=== PATIENT | male | born 1970 | race Caucasian/White ===

== ENCOUNTER 2016-03-12 02:21 | Emergency (ER) | payer MEDICAID, OTHER ==
[~2016-03-12] VITALS: Ht 188 cm; Wt 120.3 kg
[~2016-03-12 02:21] MED LIST: PERC5TAB12 PO; TAMS5CAP PO; ZOFR4TAB3 SL
[2016-03-12 02:28] VITALS: BP 137/89; PULSE 93; RESP 18; TEMP 98.1; O2SAT 98
[2016-03-12] MEDS ORDERED: HYDROmorphone HCL PF 1 MG/ML VIAL IVS ONE (02:45)
[2016-03-12] MEDS ORDERED: SODIUM CHLORIDE 0.9% FLUSH 5 ML FLUSH IVF PRN (02:45)
[2016-03-12] MEDS ORDERED: ONDANSETRON HCL 4 MG/2 ML VIAL IVP ONE (02:45)
[2016-03-12] MEDS ORDERED: PERC5TAB12 PO (03:01)
[2016-03-12] MEDS ORDERED: TAMS5CAP PO (03:01)
[2016-03-12] MEDS ORDERED: ZOFR4TAB3 SL (03:01)
--- NOTE | 2016-03-12 03:02 | PD ---
HPI Chief Complaint: Flank/Kidney Pain Time Seen by Provider: 02:33 Travel History International Travel<30 days: No Contact w/Intl Traveler<30days: No Traveled to known affect area: No History of Present Illness HPI 45 yo M c/o L flank pain x 2.5 hours with radiation to L groin, sudden onset, + hematuria, no fever, no vomiting, + nausea. pain is severe. pain similar to prior episodes ureteric stones. PFSH Past Medical History Depression: Yes (PTSD) Cardiovascular Problems: No Diabetes: No Diminished Hearing: No Hypertension: No Kidney Stones: Yes (REOCCURING SINCE 2008) Musculoskeletal: Yes (Chronic back pain) Respiratory: No Immunizations Current: No Thyroid Disease: No Tetanus Vaccination: < 5 Years Past Surgical History Abdominal Surgery: No Cardiac Surgery: No Ear Surgery: No Endocrine Surgery: No Eye Surgery: No Genitourinary Surgery: Yes (Lithotripsy, STENT PLACED AND REMOVED) Gynecologic Surgery: No Joint Replacement: No Neurologic Surgery: No Oral Surgery: No Pacemaker: No Thoracic Surgery: No Other Surgery: Yes (LITHOTRIPSY MULTIPLE TIMES,LAST ONE 12/2015) Social History Alcohol Use: Yes (OCCASIONAL) Tobacco Use: Yes (1 PACK DAILY) Substance Use: No Allergies-Medications (Allergen,Severity, Reaction): Coded Allergies: No Known Allergies (Verified , 03/12/16) Reported Meds & Prescriptions Reported Meds & Active Scripts Active Cipro (Ciprofloxacin HCl) 500 Mg Tab 500 Mg PO BID 7 Days Flomax (Tamsulosin HCl) 0.4 Mg Cap 0.4 Mg PO HS Percocet (Oxycodone-Acetaminophen) 5-325 mg Tab 1 Tab PO Q6H PRN Review of Systems Except as stated in HPI: all other systems reviewed are Neg Physical Exam Narrative GENERAL: 45 yo M, WNWD, mild distress 2/2 pain SKIN: Warm and dry. HEAD: Atraumatic. Normocephalic. EYES: Pupils equal and round. No scleral icterus. No injection or drainage. ENT: No nasal bleeding or discharge. Mucous membranes pink and moist. NECK: Trachea midline. No JVD. CARDIOVASCULAR: Regular rate and rhythm. RESPIRATORY: No accessory muscle use. Clear to auscultation. Breath sounds equal bilaterally. GASTROINTESTINAL: Abdomen soft, non-tender, nondistended. Hepatic and splenic margins not palpable. TTP L flank. MUSCULOSKELETAL: Extremities without clubbing, cyanosis, or edema. No obvious deformities. NEUROLOGICAL: Awake and alert. No obvious cranial nerve deficits. Motor grossly within normal limits. Five out of 5 muscle strength in the arms and legs. Normal speech. PSYCHIATRIC: Appropriate mood and affect; insight and judgment normal. Data Data Last Documented VS Vital Signs Date Time Temp Pulse Resp B/P Pulse Ox O2 Delivery O2 Flow Rate FiO2 03/12/16 03:28 98 Room Air 03/12/16 02:28 98.1 93 18 137/89 vs reviewed Orders Basic Metabolic Panel (Bmp) (03/12/16 02:33) Complete Blood Count With Diff (03/12/16 02:33) Urinalysis - C+S If Indicated (03/12/16 02:33) Iv Access Insert/Monitor (03/12/16 02:33) Ecg Monitoring (03/12/16 02:33) Oximetry (03/12/16 02:33) Ondansetron Inj (Zofran Inj) (03/12/16 02:45) Sodium Chloride 0.9% Flush (Ns Flush) (03/12/16 02:45) Hydromorphone Pf Inj (Dilaudid Pf Inj) (03/12/16 02:45) Urine Culture (03/12/16 02:30) Ceftriaxone Inj (Rocephin Inj) (03/12/16 03:30) Ed Poc Ultrasound (03/12/16 03:25) Hydromorphone Pf Inj (Dilaudid Pf Inj) (03/12/16 03:45) Labs Laboratory Tests Test 03/12/16 02:30 White Blood Count 11.3 TH/MM3 Red Blood Count 4.38 MIL/MM3 Hemoglobin 13.4 GM/DL Hematocrit 38.5 % Mean Corpuscular Volume 88.0 FL Mean Corpuscular Hemoglobin 30.5 PG Mean Corpuscular Hemoglobin 34.7 % Concent Red Cell Distribution Width 12.9 % Platelet Count 433 TH/MM3 Mean Platelet Volume 7.6 FL Neutrophils (%) (Auto) 63.3 % Lymphocytes (%) (Auto) 25.6 % Monocytes (%) (Auto) 7.6 % Eosinophils (%) (Auto) 2.9 % Basophils (%) (Auto) 0.6 % Neutrophils # (Auto) 7.1 TH/MM3 Lymphocytes # (Auto) 2.9 TH/MM3 Monocytes # (Auto) 0.9 TH/MM3 Eosinophils # (Auto) 0.3 TH/MM3 Basophils # (Auto) 0.1 TH/MM3 CBC Comment DIFF FINAL Differential Comment Urine Color YELLOW Urine Turbidity CLEAR Urine pH 6.0 Urine Specific [place] 1.028 Urine Protein NEG mg/dL Urine Glucose (UA) NEG mg/dL Urine Ketones TRACE mg/dL Urine Occult Blood NEG Urine Nitrite NEG Urine Bilirubin NEG Urine Leukocyte Esterase NEG Urine RBC 0-3 /hpf Urine WBC 9-14 /hpf Urine Squamous Epithelial 0-5 /hpf Cells Urine Calcium Oxalate Crystals FEW /hpf Urine Bacteria NONE /hpf Microscopic Urinalysis Comment CULTURE INDICATED Sodium Level 142 MEQ/L Potassium Level 3.8 MEQ/L Chloride Level 108 MEQ/L Carbon Dioxide Level 24.6 MEQ/L Anion Gap 9 MEQ/L Blood Urea Nitrogen 16 MG/DL Creatinine 1.10 MG/DL Estimat Glomerular Filtration 73 ML/MIN Rate Random Glucose 108 MG/DL Calcium Level 8.8 MG/DL [facility] Medical Decision Making Medical Screen Exam Complete: Yes Emergency Medical Condition: Yes Medical Record Reviewed: Yes Differential Diagnosis Constipation, Gastritis, Acute Cholecystitis, Biliary Colic, Pancreatitis, SANCHES , Hepatitis, Bowel Obstruction, Cystitis, Mesenteric Ischemia, AAA, Appendicitis , Renal Stone/Hydronephrosis, GERD, perforated viscous Narrative Course CBC & BMP Diagram 03/12/16 02:30 UA: WBCs present, no leuk est, no nitrite US L kidney demonstrates mild to moderate hydronephrosis which has been observed on multiple prior CT ab/pel studies, 3 within last 6 months. Pt will be sent home with antibiotics, Percocet and Flomax. He refused Zofran 2/2 cost. There is no suggestion of sepsis. Three prior urine cultures have yielded no isolate. In any case, we'll cover aggressively with IV Rocephin here plus 7 days Cipro at home. Cipro precautions discussed. Strict return precautions discussed. Pt verbalized understanding. Impacted stone/septic stone considered reasonably safely unlikely. Diagnosis Primary Impression: Lt flank pain Additional Impression: Cystitis Referrals: Ant Palomino MD 2 days Additional Instructions: You have a choice when it comes to health care, and we are glad that you chose [facility]. Hopefully, we have met your expectations on today's visit. You are welcome to return to [facility] at any time, as we are committed to meeting the health care needs of our community. Med/Other Pt SpecificInfo: Prescription(s) given Scripts Ciprofloxacin (Cipro)500 Mg [id number] Mg PO BID 7 Days Ref 0 Prov:Donte Lara MD 03/12/16 Tamsulosin (Flomax)0.4 Mg Cap0.4 Mg PO HS #7 CAP Ref 0 Prov:Donte Lara MD 03/12/16 Oxycodone-Acetaminophen (Percocet)5-325 mg Tab1 Tab PO Q6H PRN (PAIN) #20 TAB Ref 0 Prov:Donte Lara MD 03/12/16 Disposition: 01 DISCHARGE HOME Condition: Stable Donte Lara MD Mar 12, 2016 03:02
[2016-03-12 03:15] LABS: BLOOD, URINE NEG (NEG); GLUCOSE,URINE NEG (NEG); KETONE, URINE TRACE mg/dL (NEG); NITRITE,URINE NEG (NEG)
[2016-03-12 03:17] LABS: AUTOMATED NEUTROPHIL # 7.1 TH/MM3 (1.8-7.7); BASOPHIL # 0.1 TH/MM3 (0-0.2); BASOPHIL % 0.6 % (0.0-2.0); EOSINOPHIL # 0.3 TH/MM3 (0-0.4); EOSINOPHIL % 2.9 % (0.0-4.0); HEMATOCRIT 38.5 % (39.0-51.0); HEMO FLAGS DIFF FINAL; LYMPH % 25.6 % (9.0-44.0); LYMPHOCYTE # 2.9 TH/MM3 (1.0-4.8); MEAN CORPUSCULAR HEMOGLOBIN 30.5 PG (27.0-34.0); MEAN CORPUSCULAR HGB CONC 34.7 % (32.0-36.0); MONO % 7.6 % (0.0-8.0); NEUT % 63.3 % (16.0-70.0); PLATELET COUNT 433 TH/MM3 (150-450); RED BLOOD COUNT 4.38 MIL/MM3 (4.50-5.90); RED CELL DISTRIBUTION WIDTH 12.9 % (11.6-17.2); WHITE BLOOD COUNT 11.3 TH/MM3 (4.0-11.0)
[2016-03-12 03:20] LABS: URINE COLOR YELLOW (YELLW/STRAW)
[2016-03-12 03:21] LABS: CALCIUM OXALATE CRYSTALS,URINE FEW /hpf; RBC, URINE 0-3 /hpf (0-3); SQUAMOUS EPITHELIAL CELL URINE 0-5 /hpf (0-5)
[2016-03-12 03:22] LABS: COMMENT (UR) CULTURE INDICATED; CULTURE IF INDICATED CULTURE INDICATED
[2016-03-12 03:23] LABS: POTASSIUM 3.8 MEQ/L (3.5-5.1)
[2016-03-12 03:26] LABS: BICARBONATE 24.6 MEQ/L (21.0-32.0)
[2016-03-12 03:28] VITALS: O2SAT 98
[2016-03-12] MEDS ORDERED: cefTRIAXone INJ 1,000 MG in SODIUM CHLORIDE 0.9% INJ 100 ML IV ONE (03:30)
[2016-03-12] MEDS ORDERED: CIPR-9 PO (03:36)
[2016-03-12] MEDS ORDERED: HYDROmorphone HCL PF 1 MG/ML VIAL IV PUSH ONE (03:45)
[2016-03-12 04:38] VITALS: BP 142/77
== END 2016-03-12 04:41 | disposition home or self-care (01) ==
LOC: PHED 02:21
DX: N30.90 Cystitis, unspecified without hematuria (principal)
CPT/HCPCS: 80048; 81001; 85025; 86403; 87077; 87086; 87186; 96365; 96375; 99284; J0696; J1170; J2405

== ENCOUNTER 2016-04-05 18:30 | Emergency (ER) | payer OTHER, MEDICAID ==
[~2016-04-05] VITALS: Ht 188 cm; Wt 119.5 kg
[~2016-04-05 18:30] MED LIST changes: +CIPR-9 PO; -ZOFR4TAB3 SL
[2016-04-05 18:52] VITALS: BP 130/86; PULSE 91; RESP 16; TEMP 98.6; O2SAT 98
[2016-04-05 19:10] VITALS: BP 144/92; PULSE 85; RESP 18; O2SAT 100
[2016-04-05] MEDS ORDERED: SODIUM CHLOR 0.9% 1000 ML INJ 1,000 ML IV ONE (19:22)
[2016-04-05] MEDS ORDERED: HYDROmorphone HCL PF 1 MG/ML VIAL IVS ONE (19:30)
[2016-04-05] MEDS ORDERED: SODIUM CHLORIDE 0.9% FLUSH 5 ML FLUSH IVF PRN (19:30)
[2016-04-05] MEDS ORDERED: ONDANSETRON HCL 4 MG/2 ML VIAL IVP ONE (19:30)
[2016-04-05 19:47] LABS: AUTOMATED NEUTROPHIL # 13.7 TH/MM3 (1.8-7.7); BASOPHIL # 0.2 TH/MM3 (0-0.2); EOSINOPHIL # 0.2 TH/MM3 (0-0.4); EOSINOPHIL % 1.1 % (0.0-4.0); LYMPH % 10.4 % (9.0-44.0); LYMPHOCYTE # 1.8 TH/MM3 (1.0-4.8); MEAN CELL VOLUME 89.1 FL (80.0-100.0); MEAN CORPUSCULAR HEMOGLOBIN 29.9 PG (27.0-34.0); MEAN CORPUSCULAR HGB CONC 33.6 % (32.0-36.0); MONO % 6.5 % (0.0-8.0); PLATELET COUNT 375 TH/MM3 (150-450); RED BLOOD COUNT 4.71 MIL/MM3 (4.50-5.90)
[2016-04-05 19:56] LABS: POTASSIUM 4.9 MEQ/L (3.5-5.1)
[2016-04-05 19:57] LABS: HEMO FLAGS AUTO DIFF
[2016-04-05 20:00] VITALS: BP 157/97; PULSE 82; RESP 18; O2SAT 99
[2016-04-05 20:00] LABS: BICARBONATE 22.5 MEQ/L (21.0-32.0)
[2016-04-05] MEDS ORDERED: HYDROmorphone HCL PF 1 MG/ML VIAL IV PUSH ONE ×2 (20:15→21:30)
--- NOTE | 2016-04-05 20:41 | PD ---
HPI Chief Complaint: Flank/Kidney Pain Time Seen by Provider: 19:22 Travel History International Travel<30 days: No Contact w/Intl Traveler<30days: No Traveled to known affect area: No History of Present Illness HPI 45-year-old male presents to the emergency department for complaint of left flank pain left upper quadrant abdominal pain left lower quadrant abdominal pain. Patient states he underwent ultrasound today for history of complications to the left kidney status post nephrolithiasis and ureterolithiasis with hydronephrosis hydroureter and post stenting and lithotripsy. Patient is under the care of Dr. Cuellar. Patient does not report any fever or chills. After ultrasound patient use prescription pain medication as provided without symptom relief and presents now for ongoing pain. Patient rates pain as severe. Patient has had issues with kidney stone complications since September 2015. Patient also has history of chronic back pain. PFSH Past Medical History Narrative Medical Depression, chronic back pain, kidney stone, lithotripsy, ureteral stent, tobacco use; nursing notes reviewed Depression: Yes (PTSD) Cardiovascular Problems: No Diabetes: No Diminished Hearing: No Hypertension: No Kidney Stones: Yes (REOCCURING SINCE 2008) Musculoskeletal: Yes (Chronic back pain) Respiratory: No Immunizations Current: No Thyroid Disease: No Tetanus Vaccination: Unknown Influenza Vaccination: No Past Surgical History Abdominal Surgery: No Cardiac Surgery: No Ear Surgery: No Endocrine Surgery: No Eye Surgery: No Genitourinary Surgery: Yes (Lithotripsy, STENT PLACED AND REMOVED) Gynecologic Surgery: No Joint Replacement: No Neurologic Surgery: No Oral Surgery: No Pacemaker: No Thoracic Surgery: No Other Surgery: Yes (LITHOTRIPSY MULTIPLE TIMES,LAST ONE 12/2015) Social History Alcohol Use: Yes (Rarely) Tobacco Use: Yes (1 PACK DAILY) Substance Use: No Allergies-Medications (Allergen,Severity, Reaction): Coded Allergies: No Known Allergies (Verified , 04/05/16) Reported Meds & Prescriptions Reported Meds & Active Scripts Active Cipro (Ciprofloxacin HCl) 500 Mg Tab 500 Mg PO BID 7 Days Flomax (Tamsulosin HCl) 0.4 Mg Cap 0.4 Mg PO HS Percocet (Oxycodone-Acetaminophen) 5-325 mg Tab 1 Tab PO Q6H PRN Review of Systems Except as stated in HPI: all other systems reviewed are Neg General / Constitutional: No: Fever, Chills HENT: No: Congestion Cardiovascular: No: Chest Pain or Discomfort Respiratory: No: Shortness of Breath Gastrointestinal: Positive: Nausea, Vomiting, Abdominal Pain Genitourinary: Positive: Flank Pain Musculoskeletal: No: Myalgias, Arthralgias Skin: No Rash Neurologic: No: Weakness Psychiatric: Positive: Anxiety Hematologic/Lymphatic: No: Lymph Node Enlargement Physical Exam Narrative GENERAL: Well-developed well-nourished male in obvious discomfort no respiratory distress SKIN: Warm and dry. HEAD: Normocephalic. EYES: No scleral icterus. No injection or drainage. NECK: Supple, trachea midline. No JVD or lymphadenopathy. CARDIOVASCULAR: Regular rate and rhythm without murmurs, gallops, or rubs. RESPIRATORY: Breath sounds equal bilaterally. No accessory muscle use. GASTROINTESTINAL: Abdomen soft, left upper quadrant left lower quadrant tenderness to palpation without guarding or rebound, nondistended. MUSCULOSKELETAL: No cyanosis, or edema. BACK: Nontender without obvious deformity. Left-sided CVA tenderness. Data Data Last Documented VS Vital Signs Date Time Temp Pulse Resp B/P Pulse Ox O2 Delivery O2 Flow Rate FiO2 04/05/16 22:28 97.6 81 18 151/84 98 04/05/16 21:45 Room Air Orders Complete Blood Count With Diff (04/05/16 19:22) Basic Metabolic Panel (Bmp) (04/05/16 19:22) Urinalysis - C+S If Indicated (04/05/16 19:22) Ecg Monitoring (04/05/16 19:22) Iv Access Insert/Monitor (04/05/16 19:22) Ondansetron Inj (Zofran Inj) (04/05/16 19:30) Sodium Chloride 0.9% Flush (Ns Flush) (04/05/16 19:30) Sodium Chlor 0.9% 1000 Ml Inj (Ns 1000 M (04/05/16 19:22) Hydromorphone Pf Inj (Dilaudid Pf Inj) (04/05/16 19:30) Hydromorphone Pf Inj (Dilaudid Pf Inj) (04/05/16 20:15) Ct Abd/Pel W/O Iv Contrast (04/05/16 ) Urine Culture (04/05/16 20:30) Ketorolac Inj (Toradol Inj) (04/05/16 21:30) Hydromorphone Pf Inj (Dilaudid Pf Inj) (04/05/16 21:30) Levofloxacin (Levaquin) (04/05/16 21:30) Tamsulosin (Flomax) (04/05/16 21:30) Labs Laboratory Tests Test 04/05/16 04/05/16 19:30 20:30 White Blood Count 17.0 TH/MM3 Red Blood Count 4.71 MIL/MM3 Hemoglobin 14.1 GM/DL Hematocrit 42.0 % Mean Corpuscular Volume 89.1 FL Mean Corpuscular Hemoglobin 29.9 PG Mean Corpuscular Hemoglobin 33.6 % Concent Red Cell Distribution Width 14.0 % Platelet Count 375 TH/MM3 Mean Platelet Volume 8.3 FL Neutrophils (%) (Auto) 81.0 % Lymphocytes (%) (Auto) 10.4 % Monocytes (%) (Auto) 6.5 % Eosinophils (%) (Auto) 1.1 % Basophils (%) (Auto) 1.0 % Neutrophils # (Auto) 13.7 TH/MM3 Lymphocytes # (Auto) 1.8 TH/MM3 Monocytes # (Auto) 1.1 TH/MM3 Eosinophils # (Auto) 0.2 TH/MM3 Basophils # (Auto) 0.2 TH/MM3 CBC Comment AUTO DIFF Differential Comment AUTO DIFF CONFIRMED Platelet Estimate NORMAL Platelet Morphology Comment NORMAL Red Cell Morphology Comment NORMAL Sodium Level 140 MEQ/L Potassium Level 4.9 MEQ/L Chloride Level 108 MEQ/L Carbon Dioxide Level 22.5 MEQ/L Anion Gap 10 MEQ/L Blood Urea Nitrogen 17 MG/DL Creatinine 1.20 MG/DL Estimat Glomerular Filtration 66 ML/MIN Rate Random Glucose 98 MG/DL Calcium Level 8.7 MG/DL Urine Collection Type CLEAN CATCH Urine Color YELLOW Urine Turbidity CLEAR Urine pH 5.5 Urine Specific [place] 1.029 Urine Protein NEG mg/dL Urine Glucose (UA) NEG mg/dL Urine Ketones NEG mg/dL Urine Occult Blood TRACE Urine Nitrite NEG Urine Bilirubin NEG Urine Leukocyte Esterase NEG Urine RBC 4-9 /hpf Urine WBC 9-14 /hpf Urine Squamous Epithelial 0-5 /hpf Cells Urine Bacteria OCC /hpf Urine Mucus FEW /lpf Microscopic Urinalysis Comment CULTURE INDICATED MDM Medical Decision Making Medical Screen Exam Complete: Yes Emergency Medical Condition: Yes Medical Record Reviewed: Yes Interpretation(s) CBC & BMP Diagram 04/05/16 19:30 Last Impressions Abdomen/Pelvis CT 04/05/16 0000 Signed Impressions: Service Date/Time: Tuesday, April 05, 2016 20:11 - CONCLUSION: 1. Bilobed calculus or 2 adjacent calculi measuring up to 6 mm length x 3.5 mm at the left UPJ resulting in left-sided obstructive uropathy with moderate left hydronephrosis and perinephric stranding. Multiple additional nonobstructing bilateral renal calculi. Julio Cesar Mccarty MD UAS: wbc, bacteria --cx indicated Differential Diagnosis Flank pain, hydronephrosis/hydroureter, pyelonephritis,UTI, obstructive uropathy , renal insufficiency, diverticulitis, colitis Narrative Course IV access obtained specimens collected and sent for resulting patient administered Dilaudid 1 mg IV along with Zofran 4 mg IV and normal saline bolus Patient continues to voice complaint of pain additional Dilaudid 1 mg administered as well as identified to have leukocytosis of 17,000 CT kidney stone protocol Patient informed of lab results and imaging results; patient given additional pain medication Toradol and Flomax. One-time dose of antibiotic. Patient is stable for outpatient management and follow-up with his urologist. Diagnosis Primary Impression: Obstructive uropathy Additional Impression: Kidney stone on left side Referrals: Urologist 1 day Patient Instructions: Narcotic given in the ED, General Instructions Departure Forms: Tests/Procedures, Work Release Special Instructions: no work x 1 day Additional Instructions: Medications as prescribed continue to use previous a prescribed medication as needed for nausea vomiting and pain Temperature for fever use acetaminophen/Tylenol every 4 hours as needed for fever 100.4F or greater or may use/ADVIL/MOTRIN EVERY 6-8 HOURS NEEDED FOR FEVER 100.4F OR GREATER OR FOR PAIN ASSOCIATED INFLAMMATION RETURN TO THE EMERGENCY DEPARTMENT FOR ANY CONCERNS OR CHANGE IN CONDITION Med/Other Pt SpecificInfo: Prescription(s) given Scripts Ciprofloxacin (Cipro)500 Mg [id number] Mg PO BID 7 Days Ref 0 Prov:Shannon Nogueira MD 04/05/16 Tamsulosin (Flomax)0.4 Mg Cap0.4 Mg PO HS #10 CAP Ref 0 Prov:Shannon Nogueira MD 04/05/16 Disposition: 01 DISCHARGE HOME Condition: Stable Shannon Nogueira MD Apr 05, 2016 20:41
[2016-04-05 20:44] LABS: BLOOD, URINE TRACE (NEG); GLUCOSE,URINE NEG (NEG); KETONE, URINE NEG (NEG); NITRITE,URINE NEG (NEG); PH, URINE 5.5 (5.0-8.5)
[2016-04-05 20:48] LABS: METHOD OF COLLECTION CLEAN CATCH; URINE COLOR YELLOW (YELLW/STRAW)
[2016-04-05 20:49] LABS: MUCUS URINE FEW /lpf (OCC)
[2016-04-05 20:50] LABS: BACTERIA, URINE OCC /hpf; SQUAMOUS EPITHELIAL CELL URINE 0-5 /hpf (0-5)
[2016-04-05 20:51] LABS: COMMENT (UR) CULTURE INDICATED; CULTURE IF INDICATED CULTURE INDICATED
--- NOTE | 2016-04-05 20:56 | RADHPO ---
EXAM DATE/TIME: 04/05/2016 20:11 [facility] COMPARISON: No previous studies available for comparison. INDICATIONS : Left flank pain with nausea. Frequently recurring renal stones. ORAL CONTRAST: No oral contrast ingested. RADIATION DOSE: 24.20 CTDIvol (mGy) MEDICAL HISTORY : None SURGICAL HISTORY : None. ENCOUNTER: Initial ACUITY: 4 - 6 months PAIN SCALE: 9/10 LOCATION: Left flank TECHNIQUE: Volumetric scanning of the abdomen and pelvis was performed. Using automated exposure control and ad justment of the mA and/or kV according to patient size, radiation dose was kept as low as reasonably achievable to obtain optimal diagnostic quality images. FINDINGS: There is a bilobed calculus or 2 small adjacent calculi at the left UPJ extending over a length of ab out 6 mm and a transverse diameter of about 3.5 mm. This results in moderate hydronephrosis and obstr uctive uropathy. There are additional nonobstructing calculi in the left kidney ranging in size from about 1-3 mm. There is a tiny nonobstructing 2 mm calculus in the right kidney. There is linear scarring in the right middle lobe and lung bases. No significant abnormality the live r, spleen, adrenals or pancreas. No calcified gallstones or blurry ductal dilatation. No free fluid. No bowel obstruction. No bladder calculi. CONCLUSION: 1. Bilobed calculus or 2 adjacent calculi measuring up to 6 mm length x 3.5 mm at the left UPJ result ing in left-sided obstructive uropathy with moderate left hydronephrosis and perinephric stranding. Multiple additional nonobstructing bilateral renal calculi. Julio Cesar Mccarty MD on April 05, 2016 at 20:50 Board Certified Radiologist. This report was verified electronically.
[2016-04-05 21:00] VITALS: BP 171/94; PULSE 86; RESP 18; O2SAT 98
[2016-04-05 21:00] LABS: PLATELET ESTIMATE SMEAR NORMAL (NORMAL); PLATELET MORPHOLOGY NORMAL (NORMAL); SCAN/DIFF AUTO DIFF CONFIRMED
[2016-04-05] MEDS ORDERED: TAMSULOSIN HCL 0.4 MG CAP PO ONE (21:30)
[2016-04-05] MEDS ORDERED: KETOROLAC TROMETHAMINE 30 MG/ML (IVP) VIAL IV PUSH ONE (21:30)
[2016-04-05] MEDS ORDERED: LEVOFLOXACIN 500 MG TAB PO ONE (21:30)
[2016-04-05 21:45] VITALS: BP 145/96; PULSE 92; RESP 18; O2SAT 98
[2016-04-05] MEDS ORDERED: TAMS5CAP PO (21:50)
[2016-04-05] MEDS ORDERED: CIPR-9 PO (21:50)
[2016-04-05 22:28] VITALS: BP 151/84; RESP 16; TEMP 97.6
== END 2016-04-05 22:32 | disposition home or self-care (01) ==
LOC: PHED 18:30
DX: N13.6 Pyonephrosis (principal); B95.7 Other staphylococcus as the cause of diseases classified elsewhere
CPT/HCPCS: 74176; 80048; 81001; 85025; 86403; 87077; 87086; 87186; 96361; 96374; 96375; 96376; 99284; J1170; J1885; J2405; J7030

== ENCOUNTER 2016-04-08 08:32 | Day surgery (SDC) | payer OTHER, MEDICAID ==
[~2016-04-08] VITALS: Ht 188 cm; Wt 113.6 kg
[2016-04-08 08:53] VITALS: BP 164/87; PULSE 88; RESP 20; TEMP 98.6; O2SAT 95
[2016-04-08] MEDS ORDERED: SODIUM CHLORIDE 0.9% 1000 ML IV SCH (09:30)
[2016-04-08] MEDS ORDERED: LEVOFLOXACIN 500 MG PREMIX 100 ML - nephrostomy tube insertion or exchange IV SCH (09:30)
[2016-04-08 09:49] LABS: APTT (PATIENT) 27.7 SEC (24.3-30.1); INTERNATIONAL NORMALIZED RATIO 0.9 RATIO; PROTHROMBIN TIME - PATIENT 9.9 SEC (9.8-11.6)
[2016-04-08] MEDS ORDERED: VERAPAMIL HCL 5 MG/2 ML VIAL ONE (10:47)
[2016-04-08] MEDS ORDERED: MIDAZOLAM HCL 5 MG/5 ML VIAL ONE (10:49)
[2016-04-08] MEDS ORDERED: fentaNYL CITRATE 250 MCG/5 ML AMP ONE (10:50)
[2016-04-08] MEDS ORDERED: HYDROmorphone HCL PF 2 MG/ML VIAL ONE (11:13)
--- NOTE | 2016-04-08 11:42 | PD.RAD ---
Post Procedure Progress Note Pre Procedure Diagnosis: (1) Lt flank pain (2) Kidney stone on left side (3) Ureteral calculi Post Procedure Diagnosis: (1) Lt flank pain (2) Ureteral calculi Procedure Date: Apr 08, 2016 Supervising Radiologist: Mushtaq Aguirre Proceduralist/Assist: Edita Smith, RT(R), Joi Barrios RT(R)() Anesthesia: Local, Analgesia, Conscious Sedation Plan of Activity Patient to Unit: ROPU Patient Condition: Good See PACS Report for procedural detail/treatment Drainage Procedure Procedure 1 Imaging Guidance: Fluoroscopy, Ultrasound Side: Left Procedure Type: Nephrostomy Procedure: Placement Citizen [place]: 8 Fluid Description: Bloody, Yellow Findings: Collecting system nondilated. 100 cc Omni given IV to delineate collecting system. 22 spinal used to access renal pelvis. CO2 injected to identify LP posterior calyx. PCN placed in LP calyx. Mushtaq Aguirre MD Apr 08, 2016 11:42
[2016-04-08 11:45] VITALS: BP 140/80; PULSE 74; RESP 20; TEMP 97.7; O2SAT 94
[2016-04-08] MEDS ORDERED: IOHEXOL 350 MG/ML 50 ML BTL (for RAD DIAG) ONE (11:45)
[2016-04-08 12:00] VITALS: BP 129/88; PULSE 77; RESP 18; O2SAT 95
[2016-04-08 12:30] VITALS: BP 128/89; PULSE 81; RESP 18; O2SAT 96
--- NOTE | 2016-04-08 12:41 | RADRPT ---
EXAM DATE/TIME: 04/08/2016 10:48 [facility] COMPARISON: No previous studies available for comparison. INDICATIONS : Patient is in need of placement of a left nephrostomy tube due to hydronephrosis. MEDICAL HISTORY : History of left ureteral stricture, ureteral calculi, recurrent renal calculi, ETOH, PTSD. SURGICAL HISTORY : History of ureteral stricture dilation, ureteral stent placement and removal, left lithotripsy. ENCOUNTER: Initial ACUITY: 4 - 6 months PAIN SCORE: 0/10 FLUORO TIME: 5.1 minutes SEDATION TIME: 45 minutes CONTRAST: 100 cc Omnipaque (iohexol) 350 MEDICATION(S): 1.) 4 mg midazolam (Versed) IV 2.) 175 mcg fentanyl (Sublimaze) IV 3.) 2 mg hydromorphone (Dilaudid) IV DEVICE(S): 1.) 8 [place] 25cm Flexima catheter PROCEDURE : 1. Ultrasound-guided puncture of the kidney. 2. Antegrade percutaneous pyelogram. 3. Percutaneous nephrostomy placement. 4. Conscious sedation with continuous EKG and oximetry monitoring. The risks, benefits and alternatives to the procedure were explained and verbal and written consent w as obtained. The site was prepped in sterile fashion. Full sterile technique was used, including ca p, mask, sterile gloves and gown and a large sterile sheet. Hand hygiene and 2% chlorhexidine and/or betadine/alcohol prep was utilized per protocol for cutaneous antisepsis. The skin and subcutaneous tissues were infiltrated with local anesthetic solution. Ultrasound evaluation of the left flank showed normal size and configuration of the left kidney with no significant hydronephrosis. Therefore, 100 cc of Omnipaque was administered IV. There are symmetri c nephrograms with prompt excretion into the collecting system. Again, the collecting system is nondi lated but I was able to delineate the renal pelvis. Skin overlying the renal pelvis was anesthetized with approximately 5 cc of 1% Xylocaine. A 22 gauge spinal needle was advanced into the renal pelvis. With return of urine, CO2 was injected to delineate the posterior calyceal system. A lower pole posterior calyx was localized and the overlying skin anesthetized with an additional 8 c c 1% Xylocaine. Dermatotomy was made and lumbar scalpel and the subcutaneous tissues bluntly dissecte d. 18 gauge Yun blunt needle was advanced into the calyx. Through the outer dilator, the 035 wire was advanced into the renal pelvis. Tract was serially dilated to accommodate the 8 [place] nephrosto my tube. The [place] loop was formed and the catheter locked and secured to the skin surface with 2-0 si lk suture. Conscious sedation was performed with the prescribed dosages and duration as above. The patient tole rated the procedure well and there were no complications. EKG and oximetry remained stable throughou t the procedure. The patient was sent to post anesthesia recovery in stable condition. CONCLUSION: Uncomplicated nephrostomy tube placement as above. Mushtaq Aguirre MD on April 08, 2016 at 12:31 Board Certified Radiologist. This report was verified electronically.
[2016-04-08 13:00] VITALS: BP 138/86; PULSE 79; RESP 16; O2SAT 96
[2016-04-08 13:30] VITALS: BP 145/85; PULSE 83; RESP 16; O2SAT 95
== END 2016-04-08 13:50 | disposition home or self-care (01) ==
LOC: HROP 08:32 → HRIP 08:33 → HROP 13:50
PROVIDERS: ATTEND Urology
DX: N20.2 Calculus of kidney with calculus of ureter (principal); F17.210 Nicotine dependence, cigarettes, uncomplicated; Z87.442 Personal history of urinary calculi; F43.10 Post-traumatic stress disorder, unspecified
CPT/HCPCS: 50432; 85610; 85730; 99152; 99153; C1729; C1769; J1170; J1956; J2250; J3010; J7030; Q9967

== ENCOUNTER 2016-04-12 19:23 | Emergency (ER) | payer OTHER, MEDICAID ==
[~2016-04-12] VITALS: Ht 188 cm; Wt 118.7 kg
[~2016-04-12 19:23] MED LIST changes: -CIPR-9 PO; -TAMS5CAP PO
[2016-04-12 19:46] VITALS: BP 133/87; PULSE 92; RESP 18; TEMP 99.2; O2SAT 98
[2016-04-12 21:00] VITALS: BP 124/91; PULSE 85; RESP 18; O2SAT 98
[2016-04-12] MEDS ORDERED: PERC5TAB12 PO (21:43)
[2016-04-12] MEDS ORDERED: ZOFR4TAB PO (21:43)
--- NOTE | 2016-04-12 21:45 | PD ---
HPI Chief Complaint: Flank/Kidney Pain Time Seen by Provider: 21:00 Travel History International Travel<30 days: No Contact w/Intl Traveler<30days: No Traveled to known affect area: No History of Present Illness HPI The patient is a 45-year-old male with a long history of urinary stones who has had recently a left ureteral stone. [address] Cuellar put in a nephrostomy tube on the left. The patient states for the last 2 days he has had nausea and vomiting and left flank pain. He called Dr. Cuellar's office multiple times but they did not get back with him, they just told him to go to the emergency department. He denies any fever. He states he ran out of his Percocet. The patient has a history of lithotripsy done last in January. The patient does not want a shot, he simply wants his medication refilled. The patient does produce urine from the left nephrostomy tube and it appears to be functioning well. PFSH Past Medical History Depression: Yes (PTSD) Cardiovascular Problems: No Diabetes: No Diminished Hearing: No Hypertension: No Kidney Stones: Yes (REOCCURING SINCE 2008) Musculoskeletal: Yes (Chronic back pain) Respiratory: No Immunizations Current: No Thyroid Disease: No Tetanus Vaccination: Unknown Influenza Vaccination: No Past Surgical History Abdominal Surgery: No Cardiac Surgery: No Ear Surgery: No Endocrine Surgery: No Eye Surgery: No Genitourinary Surgery: Yes (Lithotripsy, STENT PLACED AND REMOVED,nephrostomy tube 04/09/16) Gynecologic Surgery: No Joint Replacement: No Neurologic Surgery: No Oral Surgery: No Pacemaker: No Thoracic Surgery: No Other Surgery: Yes (LITHOTRIPSY MULTIPLE TIMES,LAST ONE 12/2015) Social History Alcohol Use: Yes (Rarely) Tobacco Use: Yes (1 PACK DAILY) Substance Use: No Allergies-Medications (Allergen,Severity, Reaction): Coded Allergies: No Known Allergies (Verified , 04/12/16) Reported Meds & Prescriptions Reported Meds & Active Scripts Active Zofran (Ondansetron HCl) 4 Mg Tab 4 Mg PO Q6HR PRN Percocet (Oxycodone-Acetaminophen) 5-325 mg Tab 1 Tab PO Q4H PRN Review of Systems Except as stated in HPI: all other systems reviewed are Neg Physical Exam Narrative GENERAL: Well-nourished, obese patient in moderate apparent distress with his left flank pain. His vital signs show pulse of 92 but otherwise normal. SKIN: Warm and dry. No skin rash is present. HEAD: Normocephalic. EYES: No scleral icterus. No injection or drainage. NECK: Supple, trachea midline. No JVD or lymphadenopathy. CARDIOVASCULAR: Regular rate and rhythm without murmurs, gallops, or rubs. RESPIRATORY: Breath sounds equal bilaterally. No accessory muscle use. GASTROINTESTINAL: Abdomen soft, with diffuse tenderness on the entire left side of the abdomen/pelvis, nondistended. The tenderness appears to be located around the left flank and urinary system. No guarding or rebound is present. MUSCULOSKELETAL: No cyanosis, or edema. BACK: Nontender without obvious deformity. No CVA tenderness. Data Data Last Documented VS Vital Signs Date Time Temp Pulse Resp B/P Pulse Ox O2 Delivery O2 Flow Rate FiO2 04/12/16 21:00 85 18 04/12/16 21:00 124/91 98 04/12/16 19:46 99.2 Orders Urinalysis - C+S If Indicated (04/12/16 21:29) MDM Medical Decision Making Medical Screen Exam Complete: Yes Emergency Medical Condition: Yes Medical Record Reviewed: Yes Differential Diagnosis Left nephrostomy tube pain, urinary tract infection, left ureteral stone, malfunctioning left nephrostomy tube Narrative Course The patient appears to have left nephrostomy tube pain. He has had multiple CT scans recently and he should follow-up with his urologist about this pain. We will refill the patient Zofran and Percocet 5. Diagnosis Primary Impression: Left flank pain Med/Other Pt SpecificInfo: Prescription(s) given Scripts Ondansetron (Zofran)4 Mg Tab4 Mg PO Q6HR PRN (NAUSEA OR VOMITING) #30 TAB Ref 0 Prov:Zeb Krause MD 04/12/16 Oxycodone-Acetaminophen (Percocet)5-325 mg Tab1 Tab PO Q4H PRN (PAIN) #30 TAB Ref 0 Prov:Zeb Krause MD 04/12/16 Disposition: 01 DISCHARGE HOME Condition: Stable Zeb Krause MD Apr 12, 2016 21:45
[2016-04-12 22:10] VITALS: BP 128/86
[2016-04-12 22:18] LABS: BLOOD, URINE LARGE (NEG); GLUCOSE,URINE NEG (NEG); KETONE, URINE NEG (NEG); NITRITE,URINE NEG (NEG)
[2016-04-12 22:42] LABS: METHOD OF COLLECTION VOIDED; URINE COLOR YELLOW (YELLW/STRAW)
[2016-04-12 22:44] LABS: RBC, URINE INNUM /hpf (0-3)
[2016-04-12 22:45] LABS: BACTERIA, URINE RARE /hpf; SQUAMOUS EPITHELIAL CELL URINE 0-5 /hpf (0-5)
[2016-04-12 22:46] LABS: COMMENT (UR) CULTURE INDICATED; CULTURE IF INDICATED CULTURE INDICATED
== END 2016-04-12 22:15 | disposition home or self-care (01) ==
LOC: PHED 19:23
DX: R10.9 Unspecified abdominal pain (principal); F17.210 Nicotine dependence, cigarettes, uncomplicated
CPT/HCPCS: 81001; 87086; 99284

== ENCOUNTER 2016-04-24 20:36 | Emergency (ER) | payer MEDICAID, OTHER ==
[~2016-04-24] VITALS: Ht 188 cm; Wt 119.0 kg
[~2016-04-24 20:36] MED LIST changes: +ZOFR4TAB PO
[2016-04-24 20:38] VITALS: BP 146/97; PULSE 97; RESP 18; TEMP 98; O2SAT 99
[2016-04-24] MEDS ORDERED: KETOROLAC TROMETHAMINE 60 MG/2 ML (IM) VIAL IM ONE (21:00)
[2016-04-24] MEDS ORDERED: PERC10TA27 PO (21:07)
[2016-04-24] MEDS ORDERED: BACT800T5 PO (21:07)
--- NOTE | 2016-04-24 21:07 | PD ---
HPI Chief Complaint: Complaint Time Seen by Provider: 21:00 Travel History International Travel<30 days: No Contact w/Intl Traveler<30days: No Traveled to known affect area: No History of Present Illness HPI 45-year-old male with history of of left ureteral calculi with obstructive uropathy, left nephrostomy tube placed earlier this month, her for evaluation of pain, erythema, and purulent drainage to urostomy tube site. The patient is followed by urologist Dr. Cuellar. The patient reports having these symptoms for last 4 days. He called his urologist who started him on Keflex 2 days ago. Pain seems to be getting worse, described as a pulling sensation with movements. He reports having fevers/chills earlier in the week, however have resolved since he started Keflex. Pain is moderate to severe and constant feel nauseous. He takes Zofran at home for this. His urostomy is putting out urine. PFSH Past Medical History Depression: Yes (PTSD) Cardiovascular Problems: No Diabetes: No Diminished Hearing: No Hypertension: No Kidney Stones: Yes (REOCCURING SINCE 2008) Musculoskeletal: Yes (Chronic back pain) Respiratory: No Immunizations Current: No Thyroid Disease: No Past Surgical History Abdominal Surgery: No Cardiac Surgery: No Ear Surgery: No Endocrine Surgery: No Eye Surgery: No Genitourinary Surgery: Yes (Lithotripsy, STENT PLACED AND REMOVED,nephrostomy tube 04/09/16) Gynecologic Surgery: No Joint Replacement: No Neurologic Surgery: No Oral Surgery: No Pacemaker: No Thoracic Surgery: No Other Surgery: Yes (LITHOTRIPSY MULTIPLE TIMES,LAST ONE 12/2015) Social History Alcohol Use: Yes (Rarely) Tobacco Use: Yes (1 PACK DAILY) Substance Use: No Allergies-Medications (Allergen,Severity, Reaction): Coded Allergies: No Known Allergies (Verified , 04/12/16) Reported Meds & Prescriptions Reported Meds & Active Scripts Active Zofran (Ondansetron HCl) 4 Mg Tab 4 Mg PO Q6HR PRN Percocet (Oxycodone-Acetaminophen) 5-325 mg Tab 1 Tab PO Q4H PRN Review of Systems Except as stated in HPI: all other systems reviewed are Neg Physical Exam Narrative GENERAL: Pleasant, well-developed, well-nourished, no acute distress. SKIN: Warm and dry. Left urostomy tube site with small circular area about the size of a quarter of erythema with a small amount of purulence at tube site, no induration, no fluctuance, no red streaks, no crepitus, moderately tender. MUSCULOSKELETAL: No obvious deformities. No clubbing. No cyanosis. No edema. Left urostomy tube site with skin exam as above. Urostomy with clear yellow urine with few whitish particles. NEUROLOGICAL: Awake and alert. No obvious cranial nerve deficits. Motor grossly within normal limits. Normal speech. PSYCHIATRIC: Appropriate mood and affect; insight and judgment normal. Data Data Last Documented VS Vital Signs Date Time Temp Pulse Resp B/P Pulse Ox O2 Delivery O2 Flow Rate FiO2 04/24/16 20:38 98.0 97 18 146/97 99 MDM Medical Decision Making Medical Screen Exam Complete: Yes Emergency Medical Condition: Yes Medical Record Reviewed: Yes Differential Diagnosis Cellulitis, abscess, UTI Narrative Course This is a 45-year-old male who is here for pain and erythema at site of his left urostomy tube. Urostomy tube is putting out clear/yellow urine with a few whitish particles. Urostomy tube site is with a quarter size area of erythema and slight warmth with a small amount of purulent drainage, no induration, no fluctuance, no red streaks. Patient was started on Keflex 2 days ago. Vital signs show that the patient is slightly tachycardic with a heart rate of 97 which is likely secondary to pain. He is afebrile. His blood pressure is 146/ 97. I do not suspect sepsis. And at this point is to add Bactrim, and DC home with pain medication as well. Patient instructed to follow-up with his urologist this week. He was informed on when to return to the emergency department. He verbalizes understanding and agreement with plan. Diagnosis Primary Impression: Cellulitis Qualified Code: L03.818 - Cellulitis of other specified site Referrals: Urologist 3 days Additional Instructions: Take medications as prescribed. Follow-up with your urologist sometime this week. Return to the emergency department for worsening symptoms or any other concerns. Scripts Oxycodone-Acetaminophen (Percocet)10-325 mg Tab1 Tab PO Q6H PRN (PAIN) #15 TAB Ref 0 Prov:Jose Raul Shultz MD 04/24/16 Sulfamethoxazole-Trimethoprim (Bactrim DS)800-160 Mg Tab1 Tab PO BID #14 TAB Ref 0 Prov:Jose Raul Shutlz MD 04/24/16 Disposition: 01 DISCHARGE HOME Condition: Stable Jose Raul Shultz MD Apr 24, 2016 21:07
[2016-04-24 21:48] VITALS: RESP 18
[2016-04-24 21:49] VITALS: BP 136/78; TEMP 97.8
== END 2016-04-24 21:53 | disposition home or self-care (01) ==
LOC: PHED 20:36
DX: L03.818 Cellulitis of other sites (principal)
CPT/HCPCS: 96372; 99282; J1885

== ENCOUNTER 2016-04-29 17:16 | Emergency (ER) | payer MEDICAID, OTHER ==
[~2016-04-29] VITALS: Ht 188 cm; Wt 117.6 kg
[~2016-04-29 17:16] MED LIST changes: +BACT800T5 PO; +PERC10TA27 PO; -PERC5TAB12 PO
[2016-04-29 17:21] VITALS: BP 134/87; PULSE 87; RESP 16; TEMP 98.1; O2SAT 97
[2016-04-29] MEDS ORDERED: SODIUM CHLORIDE 0.9% FLUSH 5 ML FLUSH IVF PRN (17:45)
[2016-04-29 17:48] VITALS: O2SAT 97
[2016-04-29 17:51] LABS: AUTOMATED NEUTROPHIL # 6.4 TH/MM3 (1.8-7.7); BASOPHIL % 0.5 % (0.0-2.0); EOSINOPHIL # 0.4 TH/MM3 (0-0.4); EOSINOPHIL % 4.2 % (0.0-4.0); HEMATOCRIT 37.8 % (39.0-51.0); HEMO FLAGS DIFF FINAL; LYMPH % 22.3 % (9.0-44.0); MEAN CELL VOLUME 87.7 FL (80.0-100.0); MEAN CORPUSCULAR HEMOGLOBIN 30.3 PG (27.0-34.0); MEAN CORPUSCULAR HGB CONC 34.5 % (32.0-36.0); MONO % 3.7 % (0.0-8.0); NEUT % 69.3 % (16.0-70.0); PLATELET COUNT 485 TH/MM3 (150-450); RED BLOOD COUNT 4.31 MIL/MM3 (4.50-5.90); RED CELL DISTRIBUTION WIDTH 13.1 % (11.6-17.2); WHITE BLOOD COUNT 9.1 TH/MM3 (4.0-11.0)
[2016-04-29 18:00] LABS: CHLORIDE 108 MEQ/L (98-107); SODIUM (NA) 141 MEQ/L (136-145)
--- NOTE | 2016-04-29 18:00 | PD ---
HPI Chief Complaint: Skin Problem Time Seen by Provider: 17:27 Travel History International Travel<30 days: No Contact w/Intl Traveler<30days: No Traveled to known affect area: No History of Present Illness HPI 45-year-old male with history of left ureteral calculi with obstructive uropathy , left nephrostomy tube placed in early March, followed by urologist Dr. Cuellar, seen by me in the emergency department one week ago for cellulitis surrounding nephrostomy site and started on Bactrim at that time, here for continued pain and nephrostomy site. Patient reports that area of erythema has seemed to improve since taking Bactrim. He continues to complain of pain at the site, stating that it feels tight and is extremely tender. He denies fevers or chills. No nausea or vomiting. His urostomy has been putting out urine. PFSH Past Medical History Depression: Yes (PTSD) Cardiovascular Problems: No Diabetes: No Diminished Hearing: No Hypertension: No Kidney Stones: Yes (REOCCURING SINCE 2008) Musculoskeletal: Yes (Chronic back pain) Respiratory: No Immunizations Current: No Thyroid Disease: No Past Surgical History Abdominal Surgery: No Cardiac Surgery: No Ear Surgery: No Endocrine Surgery: No Eye Surgery: No Genitourinary Surgery: Yes (Lithotripsy, STENT PLACED AND REMOVED,nephrostomy tube 04/09/16) Gynecologic Surgery: No Joint Replacement: No Neurologic Surgery: No Oral Surgery: No Pacemaker: No Thoracic Surgery: No Other Surgery: Yes (LITHOTRIPSY MULTIPLE TIMES,LAST ONE 12/2015) Social History Alcohol Use: Yes (Rarely) Tobacco Use: Yes (1 PACK DAILY) Substance Use: No Allergies-Medications (Allergen,Severity, Reaction): Coded Allergies: No Known Allergies (Verified , 04/29/16) Reported Meds & Prescriptions Reported Meds & Active Scripts Active Bactrim DS (Sulfamethoxazole-Trimethoprim) 800-160 Mg Tab 1 Tab PO BID Zofran (Ondansetron HCl) 4 Mg Tab 4 Mg PO Q6HR PRN Review of Systems Except as stated in HPI: all other systems reviewed are Neg Physical Exam Narrative GENERAL: Well-developed, well-nourished, standing in room, no acute distress. SKIN: Left nephrostomy tube site with small area of surrounding erythema, no purulent drainage, no induration, moderate diffuse tenderness. HEAD: Atraumatic. Normocephalic. EYES: Pupils equal and round. No scleral icterus. No injection or drainage. ENT: Mucous membranes pink and moist. CARDIOVASCULAR: Regular rate and rhythm. RESPIRATORY: No accessory muscle use. Clear to auscultation. Breath sounds equal bilaterally. GASTROINTESTINAL: Abdomen soft, non-tender, nondistended. MUSCULOSKELETAL: No obvious deformities. No clubbing. No cyanosis. No edema. Left nephrostomy tube site with skin exam as above. NEUROLOGICAL: Awake and alert. No obvious cranial nerve deficits. Motor grossly within normal limits. Normal speech. PSYCHIATRIC: Appropriate mood and affect; insight and judgment normal. Data Data Last Documented VS Vital Signs Date Time Temp Pulse Resp B/P Pulse Ox O2 Delivery O2 Flow Rate FiO2 04/29/16 17:48 97 04/29/16 17:21 98.1 87 16 134/87 Orders Complete Blood Count With Diff (04/29/16 17:31) Comprehensive Metabolic Panel (04/29/16 17:31) Prothrombin Time / Inr (Pt) (04/29/16 17:31) Act Partial Throm Time (Ptt) (04/29/16 17:31) Ct Abd/Pel W Iv Contrast(Rout) (04/29/16 17:31) Iv Access Insert/Monitor (04/29/16 17:31) Ecg Monitoring (04/29/16 17:31) Oximetry (04/29/16 17:31) Sodium Chloride 0.9% Flush (Ns Flush) (04/29/16 17:45) Labs Laboratory Tests Test 04/29/16 17:40 White Blood Count 9.1 TH/MM3 Red Blood Count 4.31 MIL/MM3 Hemoglobin 13.1 GM/DL Hematocrit 37.8 % Mean Corpuscular Volume 87.7 FL Mean Corpuscular Hemoglobin 30.3 PG Mean Corpuscular Hemoglobin 34.5 % Concent Red Cell Distribution Width 13.1 % Platelet Count 485 TH/MM3 Mean Platelet Volume 7.7 FL Neutrophils (%) (Auto) 69.3 % Lymphocytes (%) (Auto) 22.3 % Monocytes (%) (Auto) 3.7 % Eosinophils (%) (Auto) 4.2 % Basophils (%) (Auto) 0.5 % Neutrophils # (Auto) 6.4 TH/MM3 Lymphocytes # (Auto) 2.0 TH/MM3 Monocytes # (Auto) 0.3 TH/MM3 Eosinophils # (Auto) 0.4 TH/MM3 Basophils # (Auto) 0.0 TH/MM3 CBC Comment DIFF FINAL Differential Comment Prothrombin Time 10.4 SEC Prothromb Time International 0.9 RATIO Ratio Activated Partial 26.8 SEC Thromboplast Time Sodium Level 141 MEQ/L Potassium Level 4.1 MEQ/L Chloride Level 108 MEQ/L Carbon Dioxide Level 23.9 MEQ/L Anion Gap 9 MEQ/L Blood Urea Nitrogen 13 MG/DL Creatinine 1.10 MG/DL Estimat Glomerular Filtration 73 ML/MIN Rate Random Glucose 127 MG/DL Calcium Level 8.8 MG/DL Total Bilirubin LESS THAN 0.1 MG/DL Aspartate Amino Transf 16 U/L (AST/SGOT) Alanine Aminotransferase 26 U/L (ALT/SGPT) Alkaline Phosphatase 62 U/L Total Protein 7.5 GM/DL Albumin 3.8 GM/DL MDM Medical Decision Making Medical Screen Exam Complete: Yes Emergency Medical Condition: Yes Medical Record Reviewed: Yes Differential Diagnosis Low back cellulitis, abscess, dislodged nephrostomy tube, musculoskeletal pain Narrative Course Vital signs are within normal limits. CBC is unremarkable. CMP is essentially unremarkable. At approximately 7:00 PM at the end of my shift the patient was signed out to Dr. Nogueira who will follow up with CT abdomen pelvis and will disposition the patient. Jose Raul Shultz MD Apr 29, 2016 18:00
[2016-04-29 18:01] LABS: POTASSIUM 4.1 MEQ/L (3.5-5.1)
[2016-04-29 18:04] LABS: ANION GAP 9 MEQ/L (5-15); BICARBONATE 23.9 MEQ/L (21.0-32.0); BLOOD UREA NITROGEN 13 MG/DL (7-18)
[2016-04-29 18:07] LABS: ALT (GPT) 26 U/L (12-78); AST (GOT) 16 U/L (15-37); GLOMERULAR FILTRATION RATE 73 ML/MIN (>89)
[2016-04-29 18:08] LABS: APTT (PATIENT) 26.8 SEC (24.3-30.1); INTERNATIONAL NORMALIZED RATIO 0.9 RATIO; PROTHROMBIN TIME - PATIENT 10.4 SEC (9.8-11.6)
[2016-04-29 18:09] LABS: TOTAL BILIRUBIN ADULT LESS THAN 0.1 MG/DL (0.2-1.0)
[2016-04-29 18:10] LABS: ALKALINE PHOSPHATASE 62 U/L (45-117)
--- NOTE | 2016-04-29 19:37 | PD ---
Physical Exam Date Seen by Provider: Apr 29, 2016 Time Seen by Provider: 19:35 Narrative Accepted in transfer of care from Dr. Shultz GENERAL: Well-developed well-nourished male in no acute distress no respiratory distress SKIN: Warm and dry. BACK: Nontender without obvious deformity. No CVA tenderness. Left flank renal stent catheter and place without evidence of induration and erythema or purulent drainage; tenderness to direct palpation. Data Data Last Documented VS Vital Signs Date Time Temp Pulse Resp B/P Pulse Ox O2 Delivery O2 Flow Rate FiO2 04/29/16 17:48 97 04/29/16 17:21 98.1 87 16 134/87 Orders Complete Blood Count With Diff (04/29/16 17:31) Comprehensive Metabolic Panel (04/29/16 17:31) Prothrombin Time / Inr (Pt) (04/29/16 17:31) Act Partial Throm Time (Ptt) (04/29/16 17:31) Ct Abd/Pel W Iv Contrast(Rout) (04/29/16 17:31) Iv Access Insert/Monitor (04/29/16 17:31) Ecg Monitoring (04/29/16 17:31) Oximetry (04/29/16 17:31) Sodium Chloride 0.9% Flush (Ns Flush) (04/29/16 17:45) Iohexol 350 Inj (Omnipaque 350 Inj) (04/29/16 19:49) Labs Laboratory Tests Test 04/29/16 17:40 White Blood Count 9.1 TH/MM3 Red Blood Count 4.31 MIL/MM3 Hemoglobin 13.1 GM/DL Hematocrit 37.8 % Mean Corpuscular Volume 87.7 FL Mean Corpuscular Hemoglobin 30.3 PG Mean Corpuscular Hemoglobin 34.5 % Concent Red Cell Distribution Width 13.1 % Platelet Count 485 TH/MM3 Mean Platelet Volume 7.7 FL Neutrophils (%) (Auto) 69.3 % Lymphocytes (%) (Auto) 22.3 % Monocytes (%) (Auto) 3.7 % Eosinophils (%) (Auto) 4.2 % Basophils (%) (Auto) 0.5 % Neutrophils # (Auto) 6.4 TH/MM3 Lymphocytes # (Auto) 2.0 TH/MM3 Monocytes # (Auto) 0.3 TH/MM3 Eosinophils # (Auto) 0.4 TH/MM3 Basophils # (Auto) 0.0 TH/MM3 CBC Comment DIFF FINAL Differential Comment Prothrombin Time 10.4 SEC Prothromb Time International 0.9 RATIO Ratio Activated Partial 26.8 SEC Thromboplast Time Sodium Level 141 MEQ/L Potassium Level 4.1 MEQ/L Chloride Level 108 MEQ/L Carbon Dioxide Level 23.9 MEQ/L Anion Gap 9 MEQ/L Blood Urea Nitrogen 13 MG/DL Creatinine 1.10 MG/DL Estimat Glomerular Filtration 73 ML/MIN Rate Random Glucose 127 MG/DL Calcium Level 8.8 MG/DL Total Bilirubin LESS THAN 0.1 MG/DL Aspartate Amino Transf 16 U/L (AST/SGOT) Alanine Aminotransferase 26 U/L (ALT/SGPT) Alkaline Phosphatase 62 U/L Total Protein 7.5 GM/DL Albumin 3.8 GM/DL [facility] Medical Record Reviewed: Yes Supervised Visit with TANYA: No Interpretation(s) Vital Signs Date Time Temp Pulse Resp B/P Pulse Ox O2 Delivery O2 Flow Rate FiO2 04/29/16 17:48 97 04/29/16 17:21 98.1 87 16 134/87 97 Last Impressions Abdomen/Pelvis CT 04/29/16 1731 Signed Impressions: Service Date/Time: Friday, April 29, 2016 19:15 - CONCLUSION: Left-sided nephrostomy tube. No evidence of perirenal or renal abscess. Otherwise unremarkable exam. Cj Londono MD CBC & BMP Diagram 04/29/16 17:40 Differential Diagnosis Please refer to 's dictation Narrative Course Accepted in transfer of care from Dr. Shultz for follow-up of pending CAT scan and patient disposition At 8:25 PM patient informed of CT abdomen and pelvis reveals no acute abnormality laboratory normal range and he is stable for outpatient management. Patient reports he is out of pain medication. Patient encouraged to complete his course of antibiotic as prescribed and to follow-up with his urologist. Diagnosis Primary Impression: Left flank pain Referrals: Urologist Patient Instructions: General Instructions Additional Instruction: Complete course of antibiotic as prescribed Follow-up with your urologist call office on Monday to schedule follow-up appointment Return to the emergency department for any concerns or change in condition Increase fluid hydration Take ibuprofen/Advil/Motrin per package instructions every 6-8 hours as needed for pain associated with inflammation for fever 100.4F or greater Take acetaminophen/Tylenol every 4-6 hours as needed for fever 100.4F or greater Med/Other Pt SpecificInfo: Prescription(s) given Scripts Hydrocodone-Acetaminophen (Lortab)5-325 Mg Tab1 Tab PO Q6H PRN (PAIN) #10 TAB Ref 0 Prov:Shannon Nogueira MD 04/29/16 Disposition: 01 DISCHARGE HOME Condition: Stable Shannon Nogueira MD Apr 29, 2016 19:37
[2016-04-29] MEDS ORDERED: IOHEXOL 350 MG/ML 10 ML VIAL (for RAD DIAG) IV ONE (19:49)
--- NOTE | 2016-04-29 20:08 | RADHPO ---
EXAM DATE/TIME: 04/29/2016 19:15 [facility] COMPARISON: No previous studies available for comparison. INDICATIONS : Pain at left nephrostomy site. IV CONTRAST: 97 cc Omnipaque 350 (iohexol) IV ORAL CONTRAST: No oral contrast ingested. RADIATION DOSE: 21.16 CTDIvol (mGy) MEDICAL HISTORY : Renal calculi. SURGICAL HISTORY : Left nephrostomy tube. ENCOUNTER: Subsequent ACUITY: 1 week PAIN SCALE: 6/10 LOCATION: Left Abdomen. TECHNIQUE: Volumetric scanning of the abdomen and pelvis was performed. Using automated exposure control and adjustment of the mA and/or kV according to patient size, radiation dose was kept as low as reasonably achievable to obtain optimal diagnostic quality images. FINDINGS: LOWER LUNGS: The visualized lower lungs are clear. LIVER: Homogeneous density without lesion. There is no dilation of the biliary tree. No calcifi ed gallstones. SPLEEN: Normal size without lesion. PANCREAS: Within normal limits. KIDNEYS: Left nephrostomy tube is in place. There is no evidence of perinephric or intrarenal abs cess. There is no mass, stone or hydronephrosis. ADRENAL GLANDS: Within normal limits. VASCULAR: There is no aortic aneurysm. BOWEL/MESENTERY: The stomach, small bowel, and colon demonstrate no acute abnormality. There is no free intraperitoneal air or fluid. ABDOMINAL WALL: Within normal limits. RETROPERITONEUM: There is no lymphadenopathy. BLADDER: No wall thickening or mass. REPRODUCTIVE: Within normal limits. INGUINAL: There is no lymphadenopathy or hernia. MUSCULOSKELETAL: Within normal limits for patient age. CONCLUSION: Left-sided nephrostomy tube. No evidence of perirenal or renal abscess. Otherwise unremarkable exam. Cj Londono MD on April 29, 2016 at 20:05 Board Certified Radiologist. This report was verified electronically.
[2016-04-29] MEDS ORDERED: HYDR-3533 PO (20:24)
== END 2016-04-29 20:37 | disposition home or self-care (01) ==
LOC: PHED 17:16
DX: R10.9 Unspecified abdominal pain (principal); F17.200 Nicotine dependence, unspecified, uncomplicated; Z93.6 Other artificial openings of urinary tract status; Z87.448 Personal history of other diseases of urinary system; Z86.59 Personal history of other mental and behavioral disorders
CPT/HCPCS: 74177; 80053; 85025; 85610; 85730; 99283; Q9967

== ENCOUNTER 2016-05-22 15:53 | Observation (INO) | payer MEDICAID, OTHER ==
[~2016-05-22] VITALS: Ht 188 cm; Wt 118.0 kg
[~2016-05-22 15:53] MED LIST changes: +HYDR-3533 PO; -PERC10TA27 PO
[2016-05-22 15:57] VITALS: BP 141/78; PULSE 84; RESP 16; TEMP 98.6; O2SAT 96
--- NOTE | 2016-05-22 16:22 | PD ---
HPI Chief Complaint: Complaint Time Seen by Provider: 16:07 Travel History International Travel<30 days: No Contact w/Intl Traveler<30days: No Traveled to known affect area: No History of Present Illness HPI 45-year-old male states that he has had no urine output out of his left side nephrostomy tube. He states that he's also been having intermittent vomiting that his urologist called and Zofran for him. He states he has had the nephrostomy since March and confirms his recent ER visits for infection around the site. He states that all have gone away with the antibiotics and he recently saw his urologist in the office where they cut his sutures were working on referring him to [facility] for possible ureteral surgery. They had also talked about possibly placing a new nephrostomy tube. He states he is having no other concurrent complaints. He states he usually empties his bag every 2-3 hours PFSH Past Medical History Depression: Yes (PTSD) Cardiovascular Problems: No Diabetes: No Diminished Hearing: No Hypertension: No Kidney Stones: Yes Musculoskeletal: Yes (Chronic back pain) Respiratory: No Immunizations Current: No Thyroid Disease: No Past Surgical History Abdominal Surgery: No Cardiac Surgery: No Ear Surgery: No Endocrine Surgery: No Eye Surgery: No Genitourinary Surgery: Yes (Lithotripsy, STENT PLACED AND REMOVED,nephrostomy tube 04/09/16) Gynecologic Surgery: No Joint Replacement: No Neurologic Surgery: No Oral Surgery: No Pacemaker: No Thoracic Surgery: No Social History Alcohol Use: Yes (Rarely) Tobacco Use: Yes (1 PACK DAILY) Substance Use: No Allergies-Medications (Allergen,Severity, Reaction): Coded Allergies: No Known Allergies (Verified , 05/22/16) Reported Meds & Prescriptions Reported Meds & Active Scripts Active Zofran (Ondansetron HCl) 4 Mg Tab 4 Mg PO Q6HR PRN Review of Systems Except as stated in HPI: all other systems reviewed are Neg Physical Exam Narrative GENERAL: Well-nourished, well-developed patient. SKIN: Warm and dry. HEAD: Normocephalic and atraumatic. EYES: No injection or drainage. ENT: No nasal drainage noted. NECK: Supple, trachea midline. CARDIOVASCULAR: Regular rate and rhythm RESPIRATORY: no increased effort. No accessory muscle use. GASTROINTESTINAL: Abdomen soft, non-tender, nondistended. EXTREMITIES: No edema. BACK: Nontender without obvious deformity in midline, no CVA tenderness, nephrostomy tube on left without cellulitic changes or drainage from the site. Urostomy bag without significant urine output which patient states has been like that since this morning NEUROLOGICAL: Awake and alert. Motor and sensory grossly within normal limits. Normal speech. Data Data Last Documented VS Vital Signs Date Time Temp Pulse Resp B/P Pulse Ox O2 Delivery O2 Flow Rate FiO2 05/22/16 18:11 68 18 98 Room Air 05/22/16 15:57 98.6 Orders Complete Blood Count With Diff (05/22/16 16:16) Basic Metabolic Panel (Bmp) (05/22/16 16:16) Urinalysis - C+S If Indicated (05/22/16 16:16) Iv Access Insert/Monitor (05/22/16 16:16) Ecg Monitoring (05/22/16 16:16) Oximetry (05/22/16 16:16) Sodium Chlorid 0.9% 500 Ml Inj (Ns 500 M (05/22/16 16:30) Ondansetron Inj (Zofran Inj) (05/22/16 16:30) Abdomen, Kub Only (05/22/16 ) Urine Culture (05/22/16 16:39) Ceftriaxone Inj (Rocephin Inj) (05/22/16 17:30) Ketorolac Inj (Toradol Inj) (05/22/16 18:00) Consult Urology (05/22/16 ) Invasive Rad Dept Consult (05/22/16 ) Admit Order (Ed Use Only) (05/22/16 18:11) Labs Laboratory Tests Test 05/22/16 05/22/16 16:34 16:39 White Blood Count 10.8 TH/MM3 Red Blood Count 4.06 MIL/MM3 Hemoglobin 12.4 GM/DL Hematocrit 36.1 % Mean Corpuscular Volume 89.1 FL Mean Corpuscular Hemoglobin 30.5 PG Mean Corpuscular Hemoglobin 34.3 % Concent Red Cell Distribution Width 13.9 % Platelet Count 297 TH/MM3 Mean Platelet Volume 8.5 FL Neutrophils (%) (Auto) 64.4 % Lymphocytes (%) (Auto) 24.8 % Monocytes (%) (Auto) 6.0 % Eosinophils (%) (Auto) 4.3 % Basophils (%) (Auto) 0.5 % Neutrophils # (Auto) 6.9 TH/MM3 Lymphocytes # (Auto) 2.7 TH/MM3 Monocytes # (Auto) 0.6 TH/MM3 Eosinophils # (Auto) 0.5 TH/MM3 Basophils # (Auto) 0.1 TH/MM3 CBC Comment DIFF FINAL Differential Comment Sodium Level 143 MEQ/L Potassium Level 3.5 MEQ/L Chloride Level 110 MEQ/L Carbon Dioxide Level 24.7 MEQ/L Anion Gap 8 MEQ/L Blood Urea Nitrogen 19 MG/DL Creatinine 0.92 MG/DL Estimat Glomerular Filtration 90 ML/MIN Rate Random Glucose 113 MG/DL Calcium Level 8.5 MG/DL Urine Collection Type CLEAN CATCH Urine Color YELLOW Urine Turbidity CLEAR Urine pH 5.5 Urine Specific [place] 1.024 Urine Protein TRACE mg/dL Urine Glucose (UA) NEG mg/dL Urine Ketones NEG mg/dL Urine Occult Blood LARGE Urine Nitrite NEG Urine Bilirubin NEG Urine Leukocyte Esterase SMALL Urine RBC 100-200 /hpf Urine WBC 50-99 /hpf Urine WBC Clumps FEW Urine Squamous Epithelial 0-5 /hpf Cells Urine Bacteria OCC /hpf Microscopic Urinalysis Comment CULTURE INDICATED Urine Collection Time 16:39 [facility] Medical Decision Making Medical Screen Exam Complete: Yes Emergency Medical Condition: Yes Medical Record Reviewed: Yes (past history confirmed) Interpretation(s) CBC & BMP Diagram 05/22/16 16:34 dose with rocephin for uti coverage Last 24 hours Impressions Abdomen X-Ray 05/22/16 0000 Signed Impressions: Service Date/Time: Sunday, May 22, 2016 17:04 - CONCLUSION: 1. Left nephrostomy tube overlies left kidney. Remainder of exam unremarkable. Julio Cesar Mccarty MD Differential Diagnosis Nephrostomy blockage, renal failure, hydronephrosis, stone Narrative Course Will check blood work, urinalysis and discuss with his urologist about imaging Patient updated and understands we will need to talk to interventional radiologist given tube cannot flush Patient updated and agrees to try to flush again, given cannot flush will talk with IR again Patient agrees to admission Physician Communication Physician Communication dr pandey states that he is not covering for dr blakely after dr miles office referred us to him dr blakely states to have IR check a nephrogram and change tube, flush 5cc NS dr jackson states to check kub to make sure in place and then try to flush again and then have tech push contrast and check KUB after can flush dr jackson updated that can flush but meeting a lot of resistance, states to admit and will change out in the morning dr hernandez agrees to admit Diagnosis Primary Impression: Nephrostomy complication Additional Impression: UTI (urinary tract infection) Qualified Code: N39.0 - Urinary tract infection with hematuria, site unspecified Admitting Information Admitting Physician Requests: Observation Ally Vaughn MD May 22, 2016 16:22
[2016-05-22] MEDS ORDERED: ONDANSETRON HCL 4 MG/2 ML VIAL IV PUSH ONE (16:30)
[2016-05-22] MEDS ORDERED: SODIUM CHLORID 0.9% 500 ML INJ 500 ML IV ONE (16:30)
[2016-05-22 16:37] VITALS: O2SAT 98
[2016-05-22 16:44] LABS: AUTOMATED NEUTROPHIL # 6.9 TH/MM3 (1.8-7.7); BASOPHIL # 0.1 TH/MM3 (0-0.2); BASOPHIL % 0.5 % (0.0-2.0); EOSINOPHIL # 0.5 TH/MM3 (0-0.4); EOSINOPHIL % 4.3 % (0.0-4.0); HEMATOCRIT 36.1 % (39.0-51.0); LYMPH % 24.8 % (9.0-44.0); LYMPHOCYTE # 2.7 TH/MM3 (1.0-4.8); MEAN CELL VOLUME 89.1 FL (80.0-100.0); MEAN CORPUSCULAR HEMOGLOBIN 30.5 PG (27.0-34.0); MEAN CORPUSCULAR HGB CONC 34.3 % (32.0-36.0); NEUT % 64.4 % (16.0-70.0); PLATELET COUNT 297 TH/MM3 (150-450); RED BLOOD COUNT 4.06 MIL/MM3 (4.50-5.90); RED CELL DISTRIBUTION WIDTH 13.9 % (11.6-17.2); WHITE BLOOD COUNT 10.8 TH/MM3 (4.0-11.0)
[2016-05-22 16:45] LABS: HEMO FLAGS DIFF FINAL
[2016-05-22 16:51] LABS: POTASSIUM 3.5 MEQ/L (3.5-5.1)
[2016-05-22 16:54] LABS: BICARBONATE 24.7 MEQ/L (21.0-32.0)
[2016-05-22 16:58] LABS: BLOOD, URINE LARGE (NEG); GLUCOSE,URINE NEG (NEG); KETONE, URINE NEG (NEG); NITRITE,URINE NEG (NEG); PH, URINE 5.5 (5.0-8.5)
[2016-05-22 17:05] LABS: METHOD OF COLLECTION CLEAN CATCH; URINE COLOR YELLOW (YELLW/STRAW)
[2016-05-22 17:06] LABS: RBC, URINE 100-200 /hpf (0-3); SQUAMOUS EPITHELIAL CELL URINE 0-5 /hpf (0-5)
[2016-05-22 17:08] LABS: BACTERIA, URINE OCC /hpf; COMMENT (UR) CULTURE INDICATED; CULTURE IF INDICATED CULTURE INDICATED
[2016-05-22] MEDS ORDERED: cefTRIAXone INJ 1,000 MG in SODIUM CHLORIDE 0.9% INJ 100 ML IV ONE (17:30)
[2016-05-22] MEDS ORDERED: KETOROLAC TROMETHAMINE 30 MG/ML (IVP) VIAL IV PUSH ONE (18:00)
--- NOTE | 2016-05-22 18:06 | RADHPO ---
EXAM DATE/TIME: 05/22/2016 17:04 [facility] COMPARISON: No previous studies available for comparison. INDICATIONS : Left flank pain, not urinating MEDICAL HISTORY : Renal calculi. SURGICAL HISTORY : left nephrostomy ENCOUNTER: Initial ACUITY: 3 days PAIN SCORE: 5/10 LOCATION: Left flank FINDINGS: Supine view of the abdomen was performed. The abdominal bowel gas pattern is normal. Left nephrostom y tube is present.. CONCLUSION: 1. Left nephrostomy tube overlies left kidney. Remainder of exam unremarkable. Julio Cesar Mccarty MD on May 22, 2016 at 18:04 Board Certified Radiologist. This report was verified electronically.
[2016-05-22 18:11] VITALS: PULSE 68; RESP 18; O2SAT 98
[2016-05-22] MEDS ORDERED: NALOXONE HCL 0.4 MG/ML AMP IV PRN (18:15)
[2016-05-22] MEDS ORDERED: MAGNESIUM HYDROXIDE SUSP 30 ML CUP PO PRN (18:15)
[2016-05-22] MEDS ORDERED: ACETAMINOPHEN 325 MG TAB PO PRN ×2 (18:15)
[2016-05-22] MEDS ORDERED: ACETAMINOPHEN/HYDROcodone 325 MG/5 MG TAB PO PRN (18:15)
[2016-05-22] MEDS: NS + KCL 20 MEQ INJ 1,000 ML IV SCH (18:34)
[2016-05-22 19:20] VITALS: BP 128/80; PULSE 69; RESP 18; TEMP 97.8; O2SAT 99
[2016-05-22 21:05] VITALS: BP 119/83; PULSE 83; RESP 18; O2SAT 99
[2016-05-22 21:25] VITALS: BP 141/94; PULSE 66; RESP 18; TEMP 97.2; O2SAT 98
[2016-05-22] MEDS: ONDANSETRON HCL 4 MG/2 ML VIAL IVP PRN (22:38)
[2016-05-22] MEDS: ACETAMINOPHEN/HYDROcodone 325 MG/7.5 MG TAB PO PRN (22:39)
[2016-05-23 00:07] VITALS: BP 127/76; PULSE 76; RESP 16; TEMP 97; O2SAT 99
[2016-05-23] MEDS: ONDANSETRON HCL 4 MG/2 ML VIAL IVP PRN (04:56)
[2016-05-23] MEDS: NS + KCL 20 MEQ INJ 1,000 ML IV SCH (05:08)
[2016-05-23 06:30] LABS: AUTOMATED NEUTROPHIL # 4.4 TH/MM3 (1.8-7.7); BASOPHIL # 0.1 TH/MM3 (0-0.2); BASOPHIL % 0.7 % (0.0-2.0); EOSINOPHIL # 0.5 TH/MM3 (0-0.4); EOSINOPHIL % 5.3 % (0.0-4.0); HEMO FLAGS DIFF FINAL; LYMPH % 32.4 % (9.0-44.0); LYMPHOCYTE # 2.8 TH/MM3 (1.0-4.8); MEAN CELL VOLUME 89.4 FL (80.0-100.0); MEAN CORPUSCULAR HEMOGLOBIN 29.7 PG (27.0-34.0); MEAN CORPUSCULAR HGB CONC 33.2 % (32.0-36.0); MONO % 7.9 % (0.0-8.0); NEUT % 53.7 % (16.0-70.0); PLATELET COUNT 283 TH/MM3 (150-450); RED BLOOD COUNT 4.13 MIL/MM3 (4.50-5.90); RED CELL DISTRIBUTION WIDTH 13.6 % (11.6-17.2); WHITE BLOOD COUNT 8.5 TH/MM3 (4.0-11.0)
[2016-05-23 06:35] LABS: POTASSIUM 3.9 MEQ/L (3.5-5.1)
[2016-05-23 06:39] LABS: BICARBONATE 27.8 MEQ/L (21.0-32.0)
[2016-05-23 08:00] VITALS: BP 142/92; PULSE 70; RESP 20; TEMP 97.5; O2SAT 100
--- NOTE | 2016-05-23 08:02 | HHI.HP ---
[facility] Service [facility] Primary Care Physician No Primary Care Physician Admission Diagnosis nephrostomy tube blockage Diagnoses: (1) Nephrostomy complication Diagnosis: Principal (2) UTI (urinary tract infection) Diagnosis: Principal Chief Complaint: "nephrostomy tube quit working" Travel History International Travel<30 Days: No Contact w/Intl Traveler <30 Da: No Traveled to Known Affected Are: No History of Present Illness 45-year-old male with history of nephrolithiasis and PTSD presents with complaint that his left-sided nephrostomy tube quit working. The patient has a history of kidney stones and states he had lithotripsy done in December by Dr. Gonzalez. He states he had [address] Gonzalez spent 2.5 hours in surgery but patient states he still had pain afterward. He says a repeat CT scan was done which showed that he still had an embedded stone in the ureter. The patient had nephrostomy tube placed on April 08 of this year. He states he is supposed to go to [facility] for ureteral resection. 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 He also states there was sediment and hematuria and he felt like the pigtail was loose. He is still able to urinate regularly from the right kidney. Currently rates his pain at 7/10. He admits to a lot of nausea. Has chronic night sweats. Also states that he has had diarrhea for last 3-4 days. Denies chest pain, cough, shortness of breath. Review of Systems Except as stated in HPI: all other systems reviewed are Neg Past Family Social History Past Medical History PTSD Nephrolithiasis Past Surgical History Multiple lithotripsies Nephrostomy tube placement 04/08/16 Reported Medications Zofran (Ondansetron HCl) 4 Mg Tab 4 Mg PO Q6HR PRN Allergies: Coded Allergies: No Known Allergies (Verified , 05/22/16) Family History No significant medical history in his family although the patient states he does not keep in touch much with his family who lives in [place]. Social History Patient smokes one pack per day of cigarettes. Rarely drinks alcohol. Physical Exam Vital Signs Vital Signs Date Time Temp Pulse Resp B/P Pulse Ox O2 Delivery O2 Flow Rate FiO2 05/23/16 04:20 05/23/16 00:07 97.0 76 16 127/76 99 05/22/16 21:25 97.2 66 18 141/94 98 05/22/16 21:05 83 18 119/83 99 Room Air 05/22/16 19:20 97.8 69 18 128/80 99 Room Air 05/22/16 18:11 68 18 98 Room Air 05/22/16 16:37 98 Room Air 05/22/16 15:57 98.6 84 16 141/78 96 Physical Exam GENERAL: This is a well-nourished, well-developed patient, in no apparent distress. SKIN: No rashes, ecchymoses or lesions. Tattoos over the neck. HEAD: Atraumatic. Normocephalic. EYES: No scleral icterus. No injection or drainage. ENT: Absent R frontal incisor. NECK: Trachea midline. CARDIOVASCULAR: Regular rate and rhythm without murmurs, gallops, or rubs. RESPIRATORY: Clear to auscultation. Breath sounds equal bilaterally. No wheezes , rales, or rhonchi. GASTROINTESTINAL: Abdomen soft, but tender over the left. No guarding. BACK: Positive left-sided CVA tenderness. NEUROLOGICAL: Awake and alert. Motor grossly within normal limits. Normal speech. PSYCHIATRIC: Normal mood and affect. Normal insight and judgement. Laboratory Laboratory Tests Test 05/22/16 05/22/16 05/23/16 16:34 16:39 05:40 White Blood Count 10.8 8.5 Red Blood Count 4.06 4.13 Hemoglobin 12.4 12.3 Hematocrit 36.1 37.0 Mean Corpuscular Volume 89.1 89.4 Mean Corpuscular Hemoglobin 30.5 29.7 Mean Corpuscular Hemoglobin 34.3 33.2 Concent Red Cell Distribution Width 13.9 13.6 Platelet Count 297 283 Mean Platelet Volume 8.5 8.6 Neutrophils (%) (Auto) 64.4 53.7 Lymphocytes (%) (Auto) 24.8 32.4 Monocytes (%) (Auto) 6.0 7.9 Eosinophils (%) (Auto) 4.3 5.3 Basophils (%) (Auto) 0.5 0.7 Neutrophils # (Auto) 6.9 4.4 Lymphocytes # (Auto) 2.7 2.8 Monocytes # (Auto) 0.6 0.7 Eosinophils # (Auto) 0.5 0.5 Basophils # (Auto) 0.1 0.1 CBC Comment DIFF FINAL DIFF FINAL Differential Comment Sodium Level 143 145 Potassium Level 3.5 3.9 Chloride Level 110 110 Carbon Dioxide Level 24.7 27.8 Anion Gap 8 7 Blood Urea Nitrogen 19 19 Creatinine 0.92 0.92 Estimat Glomerular Filtration 90 90 Rate Random Glucose 113 106 Calcium Level 8.5 8.2 Urine Collection Type CLEAN CATCH Urine Color YELLOW Urine Turbidity CLEAR Urine pH 5.5 Urine Specific [place] 1.024 Urine Protein TRACE Urine Glucose (UA) NEG Urine Ketones NEG Urine Occult Blood LARGE Urine Nitrite NEG Urine Bilirubin NEG Urine Leukocyte Esterase SMALL Urine RBC 100-200 Urine WBC 50-99 Urine WBC Clumps FEW Urine Squamous Epithelial 0-5 Cells Urine Bacteria OCC Microscopic Urinalysis Comment CULTURE INDICATED Urine Collection Time 16:39 Date/Time Procedure Status Source Growth 05/22/16 16:39 Urine Culture Received Urine Clean Catch Pending Result Diagram: 05/23/16 0540 05/23/16 0540 Imaging Last Impressions Abdomen X-Ray 05/22/16 0000 Signed Impressions: Service Date/Time: Sunday, May 22, 2016 17:04 - CONCLUSION: 1. Left nephrostomy tube overlies left kidney. Remainder of exam unremarkable. Julio Cesar Mccarty MD Assessment and Plan Assessment and Plan 45-year-old male with: Myofunctional nephrostomy tube: Patient with history of kidney stones. Nephrostomy tube placed on 04/08/16. Now with little output, hematuria, and sediment in bag as well as nausea and L flank pain. ED physician spoke with patient's urologist Dr. Gonzalez as well as radiologist. -IR consult has been placed to replace nephrostomy tube today the patient remain nothing by mouth. -Dr. Gabriel, covering urologist, has evaluated the patient. -Continue IVF -[place] prn pain -Zofran prn nausea UTI: UA personally interpreted with evidence of infection. White blood cell count is normal. Afebrile. -Continue ceftriaxone 1 g every 24-hour DVT prevention: SCDs Written by Massiel Justice PA-C acting as scribe for Dr. Dunbar on 05/23/16 at 0800. All or portions of this note were transcribed by syl Justice PA-C. I , Dr. Cruz Dunbar personally performed the history, physical exam, and medical decision making; and confirmed the accuracy of the information in the transcribed note. Authenticated by Dr. Cruz Dunbar on 05/23/16 at 12:10. Discussed Condition With urologist Dr. Gabriel, ED physician Problem Qualifiers (1) UTI (urinary tract infection): Qualified Code: N39.0 - Urinary tract infection with hematuria, site unspecified Massiel Justice May 23, 2016 08:02 Cruz Dunbar MD May 23, 2016 12:10
--- NOTE | 2016-05-23 09:01 | MB ---
cc: SHANIKA CEJA DATE OF CONSULTATION: 05/23/2016 HISTORY OF PRESENT ILLNESS This is a 45-year-old male with a history of a left renal calculus, who underwent lithotripsy in the past by Dr. Gonzalez. Apparently, the stone was embedded in the ureter and the patient required placement of a nephrostomy tube. The nephrostomy tube has been in since early March and the patient presented with nausea, vomiting and the tube was not draining. It appears to be clogged with sediment and possibly at this time has a UTI. The patient will require changing of nephrostomy tube by interventional radiology. PAST MEDICAL HISTORY His medical history includes: 1. PTSD. 2. Chronic back pain. 3. Kidney stones. PAST SURGICAL HISTORY Lithotripsy. ALLERGIES NO KNOWN DRUG ALLERGIES. MEDICATION For medications, please refer to the chart. SOCIAL HISTORY He drinks on occasion and he smokes one pack per day regularly. REVIEW OF SYSTEMS All systems reviewed and negative per the HPI. PHYSICAL EXAMINATION VITAL SIGNS: Vitals today, temperature 98.1, heart rate 87, respiratory rate 16, 134/87. GENERAL: He is a well-developed, well-nourished 45-year-old male in no acute distress. HEENT: Normocephalic, atraumatic. Pupils equal, round and reactive to light. Extraocular movements intact. NECK: Neck is supple. HEART: Regular rate and rhythm. LUNGS: Lungs are clear. ABDOMEN: Soft, nontender, nondistended. Nephrostomy tube is on the left side with cloudy urine, with moderate drainage. EXTREMITIES: Show no cyanosis, clubbing or edema. IMAGING STUDIES CT scan showed left-sided nephrostomy tube with no evidence of perirenal or renal abscesses noted. LABORATORY DATA White count 9.1, hemoglobin 13.1, hematocrit 37.8, platelet count of 45, sodium 141, potassium 4.1, chloride 108, CO2 23.9, BUN 13, creatinine 1.1, glucose of 127. ASSESSMENT A 45-year-old male with history of nephrolithiasis with obstruction on the left side with nonfunctioning nephrostomy tube. Recommend interventional radiology change out the left nephrostomy tube. Continue IV antibiotics. Check cultures. The patient to follow up with Dr. Gonzalez on an outpatient basis. Thank you for the consult and allowing me to participate in the care of this patient. Shnaika WATKINS /8:13 AM /8:53 AM
[2016-05-23] MEDS ORDERED: IOHEXOL 350 MG/ML 50 ML BTL (for RAD DIAG) ONE (09:58)
--- NOTE | 2016-05-23 10:13 | PD.RAD ---
Post Procedure Progress Note Pre Procedure Diagnosis: (1) Lt flank pain (2) Nephrostomy complication (3) Kidney stone on left side Post Procedure Diagnosis: (1) Lt flank pain (2) Nephrostomy complication (3) Kidney stone on left side Procedure Date: May 23, 2016 Supervising Radiologist: Mushtaq Aguirre Proceduralist/Assist: Nessa Montano, RT(R), Joi Barrios RT(R)() Anesthesia: Local, Analgesia, Conscious Sedation Plan of Activity Patient to Unit: ROPU Patient Condition: Good See PACS Report for procedural detail/treatment Drainage Procedure Procedure 1 Imaging Guidance: Fluoroscopy Procedure Type: Nephrostomy Procedure: Replacement [place]: 8 Fluid Description: Bloody, Yellow Findings: Existing tube occluded with calcific concretions. Removed and replaced Plan Would consider either more frequent tube exchanges (q month) and/or diet/ medication revision to reduce urinary stone production Mushtaq Aguirre MD May 23, 2016 10:13
[2016-05-23 10:15] VITALS: BP 118/61; PULSE 61; RESP 16; TEMP 98; O2SAT 95
--- NOTE | 2016-05-23 10:49 | RADHPO ---
EXAM DATE/TIME: 05/23/2016 08:30 [facility] COMPARISON: No previous studies available for comparison. INDICATIONS : Patient is in need of an exchange of existing left nephrostomy tube due to occlusion. MEDICAL HISTORY : History of renal stones, left ureteral stricture, ETOH, PTSD. SURGICAL HISTORY : History of nephrostomt ube placement, ureteral stricture dilation, ureteral stent placement and remov al, lithotripsy. ENCOUNTER: Subsequent ACUITY: 1 day PAIN SCORE: 0/10 FLUORO TIME: 2.03 minutes IMAGE SERIES: 4 SEDATION TIME: 20 minutes CONTRAST: 5 cc Omnipaque (iohexol) 350 MEDICATION(S): 1.) 4 mg midazolam (Versed) IV 2.) 200 mcg fentanyl (Sublimaze) IV DEVICE(S): 1.) 8 Cymro 25cm Flexima catheter Nephrostomy tube PROCEDURE : 1. Antegrade pyelogram. 2. Nephrostomy tube exchange. 3. Conscious sedation with continuous EKG and oximetry monitoring. The risks, benefits and alternatives to the procedure were explained and verbal and written consent w as obtained. The site was prepped in sterile fashion. Full sterile technique was used, including ca p, mask, sterile gloves and gown and a large sterile sheet. Hand hygiene and 2% chlorhexidine and/or betadine/alcohol prep was utilized per protocol for cutaneous antisepsis. The skin and subcutaneous tissues were infiltrated with local anesthetic solution. With fluoroscopic guidance antegrade pyelo gram was performed. Unable to inject or pass a wire through the existing tube. The tube was simply removed and the tract probed with a 7 Cymro dilator. Contrast injection confirmed re\re access of the collecting system. B oth 35 Glidewire was advanced through the dilator into the collecting system. A new, 8 Cymro cathete r was advanced over the wire. [place] loop was formed in the renal pelvis. Catheter was secured to the s kin surface with 2-0 silk suture. The [place] loop was locked in position. The old catheter was examined. The catheter was excised demonstrating extensive concretions in the di stal lumen extending into the [place] loop which would explain the non-function. Conscious sedation was performed with the prescribed dosages and duration as above in the presence of an independent trained radiology nurse to assist in the monitoring of the patient. EKG and oximetry remained stable throughout the procedure. The patient tolerated the procedure well and there were n o complications. The patient was sent to post anesthesia recovery in stable condition. CONCLUSION: 1. Existing catheter was nonfunctional due to the extensive concretions throughout the distal lumen e xtending into the [place] loop. Catheter remained appropriately positioned. 2. Would suggest diet/medication revision to reduce the formation of concretions. May also have to co nsider more frequent tube exchanges, possibly every month to prevent interval malfunction. Mushtaq Aguirre MD on May 23, 2016 at 10:44 Board Certified Radiologist. This report was verified electronically.
[2016-05-23 11:00] VITALS: BP 122/75; PULSE 67; RESP 16; O2SAT 98
[2016-05-23 12:00] VITALS: BP 135/92; PULSE 64; RESP 18; TEMP 97.7; O2SAT 100
[2016-05-23] MEDS ORDERED: HYDR-3516 PO (12:04)
--- NOTE | 2016-05-23 12:04 | HHI.DCPOC ---
Discharge Care Plan Diagnosis: (1) Kidney stone on left side (2) Lt flank pain (3) Nephrostomy complication (4) UTI (urinary tract infection) Goals to Promote Your Health * To prevent worsening of your condition and complications * To maintain your health at the optimal level Directions to Meet Your Goals Take your medications as prescribed Follow your dietary instruction Follow activity as directed Keep your appointments as scheduled Take your immunizations and boosters as scheduled If your symptoms worsen call your PCP, if no PCP go to Urgent Care Center or Emergency Room Smoking is Dangerous to Your Health. Avoid second hand smoke Call the 24-hour hour crisis hotline for domestic abuse at Cruz Dunbar MD May 23, 2016 12:04
[2016-05-23] MEDS ORDERED: BACT800T5 PO (12:06)
[2016-05-23] MEDS: ACETAMINOPHEN/HYDROcodone 325 MG/7.5 MG TAB PO PRN (12:18)
[2016-05-23] MEDS ORDERED: MIDAZOLAM HCL 5 MG/5 ML VIAL IVP ONE (12:29)
[2016-05-23] MEDS ORDERED: MIDAZOLAM HCL 5 MG/5 ML VIAL IV PUSH ONE (12:29)
[2016-05-23] MEDS ORDERED: fentaNYL CITRATE 250 MCG/5 ML AMP IV ONE ×2 (12:29)
[2016-05-23] MEDS ORDERED: cefTRIAXone INJ 1,000 MG in SODIUM CHLORIDE 0.9% INJ 100 ML IV SCH (17:00)
== END 2016-05-23 12:30 | disposition home or self-care (01) ==
LOC: PHED 15:53 → PHEDA 18:13 → PH3A 21:14
PROVIDERS: ADMIT Family Medicine; ATTEND Family Medicine
DX: N99.522 Malfunction of incontinent external stoma of urinary tract (principal); Y83.3 Surgical operation with formation of external stoma as the cause of abnormal reaction of the patient, or of later complication, without mention of misadventure at the time of the procedure; N39.0 Urinary tract infection, site not specified; F43.10 Post-traumatic stress disorder, unspecified; G89.29 Other chronic pain; M54.9 Dorsalgia, unspecified; F17.210 Nicotine dependence, cigarettes, uncomplicated; Z87.442 Personal history of urinary calculi
CPT/HCPCS: 50435; 74000; 80048; 81001; 85025; 87086; 96361; 96365; 96375; 99152; 99153; 99284; C1729; C1769; G0378; J0696; J1885; J2250; J2405; J3010; J3480; J7040; Q9967

== ENCOUNTER 2016-06-14 16:16 | Observation (INO) | payer OTHER, MEDICAID ==
[~2016-06-14] VITALS: Ht 188 cm; Wt 118.6 kg
[~2016-06-14 16:16] MED LIST changes: +HYDR-3516 PO; -HYDR-3533 PO
[2016-06-14 16:22] VITALS: BP 150/87; PULSE 87; RESP 20; TEMP 98.4; O2SAT 99
[2016-06-14 17:15] VITALS: RESP 16; O2SAT 97
[2016-06-14] MEDS ORDERED: KETOROLAC TROMETHAMINE 30 MG/ML (IVP) VIAL IV PUSH ONE (17:30)
[2016-06-14] MEDS ORDERED: ONDANSETRON HCL 4 MG/2 ML VIAL IV PUSH ONE (17:30)
[2016-06-14 17:31] LABS: BASOPHIL # 0.1 TH/MM3 (0-0.2); BASOPHIL % 0.5 % (0.0-2.0); EOSINOPHIL # 0.4 TH/MM3 (0-0.4); EOSINOPHIL % 3.9 % (0.0-4.0); HEMATOCRIT 37.8 % (39.0-51.0); HEMO FLAGS DIFF FINAL; LYMPH % 27.8 % (9.0-44.0); LYMPHOCYTE # 2.8 TH/MM3 (1.0-4.8); MEAN CORPUSCULAR HEMOGLOBIN 30.6 PG (27.0-34.0); MEAN CORPUSCULAR HGB CONC 34.8 % (32.0-36.0); MONO % 7.8 % (0.0-8.0); PLATELET COUNT 344 TH/MM3 (150-450); RED BLOOD COUNT 4.29 MIL/MM3 (4.50-5.90); RED CELL DISTRIBUTION WIDTH 13.6 % (11.6-17.2); WHITE BLOOD COUNT 10.1 TH/MM3 (4.0-11.0)
[2016-06-14 17:32] LABS: GLUCOSE,URINE NEG (NEG); KETONE, URINE TRACE mg/dL (NEG)
[2016-06-14 17:37] LABS: BLOOD, URINE MOD (NEG); NITRITE,URINE POS (NEG)
[2016-06-14 17:39] LABS: MUCUS URINE FEW /lpf (OCC); URINE COLOR YELLOW (YELLW/STRAW)
[2016-06-14 17:40] LABS: BACTERIA, URINE FEW /hpf; COMMENT (UR) CULTURE INDICATED; CULTURE IF INDICATED CULTURE INDICATED; SQUAMOUS EPITHELIAL CELL URINE 0-5 /hpf (0-5)
[2016-06-14] MEDS ORDERED: cefTRIAXone INJ 1,000 MG in SODIUM CHLORIDE 0.9% INJ 100 ML IV ONE (17:45)
[2016-06-14 17:46] LABS: POTASSIUM 3.9 MEQ/L (3.5-5.1)
[2016-06-14 17:49] LABS: BICARBONATE 22.9 MEQ/L (21.0-32.0)
[2016-06-14] MEDS ORDERED: oxyCODONE/ACETAMINOPHEN 5 MG/325 MG TAB PO ONE (18:15)
[2016-06-14] MEDS ORDERED: ONDANSETRON HCL 4 MG/2 ML VIAL IVP PRN (18:30)
[2016-06-14] MEDS ORDERED: SODIUM CHLORIDE 0.9% FLUSH 10 ML FLUSH IV FLUSH PRN (18:30)
[2016-06-14] MEDS ORDERED: ACETAMINOPHEN 325 MG TAB PO PRN (18:30)
[2016-06-14] MEDS ORDERED: NALOXONE HCL 0.4 MG/ML AMP IV PRN (18:30)
[2016-06-14] MEDS ORDERED: ACETAMINOPHEN/HYDROcodone 325 MG/5 MG TAB PO PRN (18:30)
[2016-06-14] MEDS ORDERED: BISACODYL 10 MG SUPP RECTAL PRN (18:30)
--- NOTE | 2016-06-14 18:31 | PD ---
HPI Chief Complaint: Flank/Kidney Pain Time Seen by Provider: 17:15 Travel History International Travel<30 days: No Contact w/Intl Traveler<30days: No Traveled to known affect area: No History of Present Illness HPI 45-year-old male presents with flank pain and nonbloody emesis. He has had no output from his nephrostomy tube over the past 8 or so hours since this morning. He states that he had it flushed on Monday when it got blocked but they could not change it out as it was too late. He states that he has no other concurrent complaints. He feels worse when he moves around. He denies other modifying factors. Quality pain is sharp. Severity is severe per patient. He confirms prior ER visit where I saw him and he had his nephrostomy tube changed later while he was in the hospital. PFSH Past Medical History Blood Disorders: No Anxiety: Yes Depression: Yes (PTSD) Cancer: No Cardiovascular Problems: No Congestive Heart Failure: No Diabetes: No Diminished Hearing: No Endocrine: No Genitourinary: Yes (LEFT NEPHROSTOMY) Hypertension: No Immune Disorder: No Kidney Stones: Yes Musculoskeletal: Yes (Chronic back pain) Neurologic: No Psychiatric: Yes Reproductive: No Respiratory: No Immunizations Current: No Thyroid Disease: No Tetanus Vaccination: Unknown Influenza Vaccination: No Past Surgical History Abdominal Surgery: No Cardiac Surgery: No Ear Surgery: No Endocrine Surgery: No Eye Surgery: No Genitourinary Surgery: Yes (Lithotripsy, STENT PLACED AND REMOVED,nephrostomy tube placed x 2 Lt kidney) Gynecologic Surgery: No Joint Replacement: No Neurologic Surgery: No Oral Surgery: No Pacemaker: No Thoracic Surgery: No Other Surgery: Yes (LITHOTRIPSY MULTIPLE TIMES,) Social History Alcohol Use: Yes (Rarely- beer) Tobacco Use: Yes (1 PACK DAILY) Substance Use: No Allergies-Medications (Allergen,Severity, Reaction): Coded Allergies: No Known Allergies (Verified , 06/14/16) Reported Meds & Prescriptions Reported Meds & Active Scripts Active No Active Prescriptions or Reported Medications Review of Systems Except as stated in HPI: all other systems reviewed are Neg Physical Exam Narrative GENERAL: Well-nourished, well-developed patient. Uncomfortable SKIN: Warm and dry. HEAD: Normocephalic and atraumatic. EYES: No injection or drainage. ENT: No nasal drainage noted. NECK: Supple, trachea midline. CARDIOVASCULAR: Regular rate and rhythm RESPIRATORY: No increased effort. No accessory muscle use. GASTROINTESTINAL: Abdomen soft, non-tender, nondistended. EXTREMITIES: No edema. BACK: No midline pain, tender near left nephrostomy site without cellulitic changes, after discussing with IR attempted to flush and unable to pull back fluid NEUROLOGICAL: Awake and alert. Motor and sensory grossly within normal limits. Normal speech. Data Data Last Documented VS Vital Signs Date Time Temp Pulse Resp B/P Pulse Ox O2 Delivery O2 Flow Rate FiO2 06/14/16 17:15 16 97 Room Air 06/14/16 17:04 84 06/14/16 16:22 98.4 150/87 Orders Complete Blood Count With Diff (06/14/16 17:15) Basic Metabolic Panel (Bmp) (06/14/16 17:15) Urinalysis - C+S If Indicated (06/14/16 17:15) Iv Access Insert/Monitor (06/14/16 17:15) Ecg Monitoring (06/14/16 17:15) Oximetry (06/14/16 17:15) Ketorolac Inj (Toradol Inj) (06/14/16 17:30) Ondansetron Inj (Zofran Inj) (06/14/16 17:30) Invasive Rad Dept Consult (06/14/16 ) Ceftriaxone Inj (Rocephin Inj) (06/14/16 17:45) Urine Culture (06/14/16 17:00) Admit Order (Ed Use Only) (06/14/16 17:53) Labs Laboratory Tests Test 06/14/16 06/14/16 17:00 17:25 Urine Color YELLOW Urine Turbidity CLEAR Urine pH 6.0 Urine Specific [place] 1.028 Urine Protein 30 mg/dL Urine Glucose (UA) NEG mg/dL Urine Ketones TRACE mg/dL Urine Occult Blood MOD Urine Nitrite POS Urine Bilirubin NEG Urine Leukocyte Esterase SMALL Urine RBC 10-14 /hpf Urine WBC 25-49 /hpf Urine Squamous Epithelial 0-5 /hpf Cells Urine Bacteria FEW /hpf Urine Mucus FEW /lpf Microscopic Urinalysis Comment CULTURE INDICATED White Blood Count 10.1 TH/MM3 Red Blood Count 4.29 MIL/MM3 Hemoglobin 13.1 GM/DL Hematocrit 37.8 % Mean Corpuscular Volume 88.0 FL Mean Corpuscular Hemoglobin 30.6 PG Mean Corpuscular Hemoglobin 34.8 % Concent Red Cell Distribution Width 13.6 % Platelet Count 344 TH/MM3 Mean Platelet Volume 7.9 FL Neutrophils (%) (Auto) 60.0 % Lymphocytes (%) (Auto) 27.8 % Monocytes (%) (Auto) 7.8 % Eosinophils (%) (Auto) 3.9 % Basophils (%) (Auto) 0.5 % Neutrophils # (Auto) 6.0 TH/MM3 Lymphocytes # (Auto) 2.8 TH/MM3 Monocytes # (Auto) 0.8 TH/MM3 Eosinophils # (Auto) 0.4 TH/MM3 Basophils # (Auto) 0.1 TH/MM3 CBC Comment DIFF FINAL Differential Comment Sodium Level 145 MEQ/L Potassium Level 3.9 MEQ/L Chloride Level 112 MEQ/L Carbon Dioxide Level 22.9 MEQ/L Anion Gap 10 MEQ/L Blood Urea Nitrogen 15 MG/DL Creatinine 1.00 MG/DL Estimat Glomerular Filtration 82 ML/MIN Rate Random Glucose 80 MG/DL Calcium Level 8.6 MG/DL [facility] Medical Decision Making Medical Screen Exam Complete: Yes Emergency Medical Condition: Yes Medical Record Reviewed: Yes (past history confirm, recent hospitalization reviewed) Interpretation(s) CBC & BMP Diagram 06/14/16 17:25 UA with UTI Differential Diagnosis Nephrostomy blockage, UTI, renal failure Narrative Course Will check blood work, urinalysis and discuss with IR Patient agrees to transfer and hospitalization for further care, given pain and antiemetics control in addition to Rocephin Physician Communication Physician Communication dr bullock states to transfer to the main for having his nephrostomy changed Dr. Espinoza agrees to admission at the main Diagnosis Primary Impression: Nephrostomy complication Additional Impressions: Lt flank pain UTI (urinary tract infection) Qualified Code: N39.0 - Urinary tract infection without hematuria, site unspecified Admitting Information Admitting Physician Requests: Observation Scripts No Active Prescriptions or Reported Meds Ally Vaughn MD Jun 14, 2016 18:31
[2016-06-14] MEDS: MORPHINE SULFATE 4 MG/ML INJ IV PRN (19:57)
[2016-06-14 20:53] VITALS: BP 167/73; PULSE 80; RESP 20; O2SAT 97
[2016-06-14] MEDS: ACETAMINOPHEN/HYDROcodone 325 MG/7.5 MG TAB PO PRN (22:02)
[2016-06-14 22:38] VITALS: BP 121/73; PULSE 78; RESP 20; O2SAT 98
[2016-06-15 00:15] VITALS: BP 146/83; PULSE 70; RESP 22; TEMP 97.6; O2SAT 96
[2016-06-15] MEDS: SODIUM CHLORIDE 0.9% FLUSH 10 ML FLUSH IV FLUSH SCH ×2 (00:30→09:00)
[2016-06-15] MEDS: ACETAMINOPHEN/HYDROcodone 325 MG/7.5 MG TAB PO PRN (02:00)
[2016-06-15] MEDS: MORPHINE SULFATE 4 MG/ML INJ IV PRN (03:39)
[2016-06-15 04:00] VITALS: BP 109/73; PULSE 66; RESP 22; TEMP 97.5; O2SAT 97
[2016-06-15] MEDS: SODIUM CHLOR 0.9% 1000 ML INJ 1,000 ML IV SCH ×2 (06:43→11:17)
[2016-06-15 08:16] VITALS: BP 94/57; PULSE 66; RESP 16; TEMP 98; O2SAT 98
[2016-06-15] MEDS ORDERED: fentaNYL CITRATE 250 MCG/5 ML AMP ONE ×2 (09:20→09:50)
[2016-06-15] MEDS ORDERED: MIDAZOLAM HCL 5 MG/5 ML VIAL ONE ×2 (09:20→09:50)
[2016-06-15] MEDS ORDERED: LEVOFLOXACIN 500 MG PREMIX INJ 100 ML IV ONE (09:20)
[2016-06-15] MEDS ORDERED: IOHEXOL 350 MG/ML 50 ML BTL (for RAD DIAG) ONE (09:55)
[2016-06-15] MEDS ORDERED: CIPROFLOXACIN 400 MG PREMIX 200 ML IV SCH (10:00)
--- NOTE | 2016-06-15 10:18 | PD.RAD ---
Post Procedure Progress Note Pre Procedure Diagnosis: (1) Nephrostomy complication (2) UTI (urinary tract infection) (3) Lt flank pain (4) Kidney stone on left side Post Procedure Diagnosis: (1) Nephrostomy complication (2) Lt flank pain (3) UTI (urinary tract infection) (4) Kidney stone on left side Procedure Date: Jun 15, 2016 Supervising Radiologist: Mushtaq Aguirre Proceduralist/Assist: Nessa Montano RT(R), RT Abelardo(R)() Anesthesia: Local, Analgesia, Conscious Sedation Plan of Activity Patient to Unit: ROPU Patient Condition: Good See PACS Report for procedural detail/treatment Drainage Procedure Procedure 1 Imaging Guidance: Fluoroscopy Side: Left Procedure Type: Nephrostomy Procedure: Exchange (and upsize) Fluid Description: Yellow Findings: Heavy concretions on catheter. Will schedule for routine change q month until surgery Mushtaq Aguirre MD Jun 15, 2016 10:18
[2016-06-15 10:25] VITALS: BP 99/55; PULSE 76; RESP 16; O2SAT 97
[2016-06-15 10:49] VITALS: BP 123/66; PULSE 68; RESP 16; O2SAT 97
[2016-06-15] MEDS ORDERED: CIPR-9 PO (12:32)
--- NOTE | 2016-06-15 12:32 | HHI.DCPOC ---
Discharge Care Plan Diagnosis: (1) Nephrostomy complication (2) UTI (urinary tract infection) Goals to Promote Your Health * To prevent worsening of your condition and complications * To maintain your health at the optimal level Directions to Meet Your Goals Take your medications as prescribed Follow your dietary instruction Follow activity as directed Keep your appointments as scheduled Take your immunizations and boosters as scheduled If your symptoms worsen call your PCP, if no PCP go to Urgent Care Center or Emergency Room Smoking is Dangerous to Your Health. Avoid second hand smoke Call the 24-hour hour crisis hotline for domestic abuse at Edita Batista PA-C Jun 15, 2016 12:32
--- NOTE | 2016-06-15 12:54 | RADRPT ---
EXAM DATE/TIME: 06/15/2016 09:36 [facility] COMPARISON: CHANGE OF NEPHROSTOMY CATH, LT, May 23, 2016, 8:30.qq INDICATIONS : Patient in need of an exchange of existing left nephrostomy tube due to occlusion. MEDICAL HISTORY : Renal stones, left ureteral stricture, PTSD SURGICAL HISTORY : History of nephrostomy tube placement, ureteral stricture dilation, ureteral stent placement and la hector, multiple lithotripsy. ENCOUNTER: Initial ACUITY: 1 day PAIN SCORE: 3/10 LOCATION: Left abdomen FLUORO TIME: 1.4 minutes IMAGE SERIES: 2 SEDATION TIME: 30 minutes CONTRAST: 20 cc Omnipaque (iohexol) 350 MEDICATION(S): 1.) 6 mg midazolam (Versed) IV 2.) 300 mcg fentanyl (Sublimaze) IV DEVICE(S): 1.) 10 [place] nephrostomy catheter PROCEDURE : 1. Antegrade pyelogram. 2. Nephrostomy tube exchange. 3. Conscious sedation with continuous EKG and oximetry monitoring. The risks, benefits and alternatives to the procedure were explained and verbal and written consent w as obtained. The site was prepped in sterile fashion. Full sterile technique was used, including ca p, mask, sterile gloves and gown and a large sterile sheet. Hand hygiene and 2% chlorhexidine and/or betadine/alcohol prep was utilized per protocol for cutaneous antisepsis. The skin and subcutaneous tissues were infiltrated with local anesthetic solution. With fluoroscopic guidance antegrade pyelo gram was performed. The existing tube was patent and appropriately positioned. However, after the tube was removed over t he wire, there were extensive concretions at the tube tip/[place] loop. As such, the tube was upsized to 10 [place]. Over a guidewire the prescribed nephrostomy tube was placed. Injection of positive contrast demonstra tesha good position of the catheter within the collecting system. Conscious sedation was performed with the prescribed dosages and duration as above in the presence of an independent trained radiology nurse to assist in the monitoring of the patient. EKG and oximetry remained stable throughout the procedure. The patient tolerated the procedure well and there were n o complications. The patient was sent to post anesthesia recovery in stable condition. CONCLUSION: 1. Uncomplicated nephrostomy tube exchange as above. 2. Tube was upsized to 10 [place] due to frequent occlusion secondary to extensive calcific concretion s. We've also schedule the patient for routine tube changes every month until urologic surgery is per formed Mushtaq Aguirre MD on June 15, 2016 at 10:25 Board Certified Radiologist. This report was verified electronically.
--- NOTE | 2016-06-15 13:05 | HHI.HP ---
[facility] No Primary Care Physician Admission Diagnosis nephrostomy tube blockage, UTI, intractable pain Diagnoses: Chief Complaint: nephrostomy tube blockage, flank pain Travel History International Travel<30 Days: No Contact w/Intl Traveler <30 Da: No Traveled to Known Affected Are: No History of Present Illness 45-year-old male with history of nephrolithiasis s/p multiple lithotripsies and nephrostomy tube, anxiety, PTSD, tobacco use, presents with no output from his nephrostomy tube x8hrs and associated flank pain. Patient has an extensive history of kidney stones, had multiple lithotripsies, ureteral stents, and has had complications with an embedded stone in the ureter. He had a nephrostomy tube placed on 04/08/16. He has been following with Dr. Cuellar urology for all of his procedures however has recently been referred to [facility] in [place] for ureteral resection per the patient. He presents because he did not have any output from his nephrostomy tube for the past eight hours prior to arrival. He also had associated left flank pain described as severe sharp pain worse with any movement. He states his urine is filled with sediment at baseline. He denies any fevers or chills. He reports nausea associated with the pain but no vomiting. Denies any other medical complaints at this time. Since his arrival to the hospital, UA consistent with UTI, given IV Rocephin. IR consulted and replaced the nephrostomy tube. The patient feels much better and wants to go home. Afebrile, no leukocytosis. The patient reports Dr. Cuellar referred him to [place] at [facility] and has an appointment on 06/21. Review of Systems Except as stated in HPI: all other systems reviewed are Neg Past Family Social History Past Medical History Nephrolithiasis PTSD Anxiety Past Surgical History Multiple lithotripsies x6 Nephrostomy tube placement 04/08/16 Reported Medications Denies taking any medications on a regular basis. Allergies: Coded Allergies: No Known Allergies (Verified , 06/14/16) Active Ordered Medications Current Medications Medications (Trade) Dose Ordered Sig/Yasemin Route Start Time Stop Time Status Last Admin (NS 1000 ml Inj) 1,000 ml @ 100 mls/hr Q10H IV 06/15/16 07:00 06/15/16 11:17 (NS Flush) 2 ml UNSCH PRN IV FLUSH 06/14/16 18:30 06/15/16 03:38 (NS Flush) 2 ml BID IV FLUSH 06/14/16 21:00 06/15/16 00:30 (Zofran Inj) 4 mg Q6H PRN IVP 06/14/16 18:30 06/15/16 03:38 (Dulcolax Supp) 10 mg DAILY PRN RECTAL 06/14/16 18:30 (Tylenol) 650 mg Q6H PRN PO 06/14/16 18:30 (Elizabeth 5-325 Mg) 1 tab Q4H PRN PO 06/14/16 18:30 (Elizabeth 7.5-325 Mg) 1 tab Q4H PRN PO 06/14/16 18:30 06/15/16 02:00 (Morphine Inj) 1 mg Q3H PRN IV 06/14/16 18:30 06/15/16 03:39 Naloxone HCl 0.4 mg 0.4 mg UNSCH PRN IV 06/14/16 18:30 (Cipro 400 Mg Premix) 200 ml @ 200 mls/hr Q12H IV 06/15/16 10:00 06/15/16 11:16 Family History Denies any urological problems in the family that he is aware of. No significant medical history in his family although the patient states he does not keep in touch much with his family who lives in [place]. Social History Smokes tobacco, 1 PPD Occasional alcohol use Denies any illicit drug use Physical Exam Vital Signs Vital Signs Date Time Temp Pulse Resp B/P Pulse Ox O2 Delivery O2 Flow Rate FiO2 06/15/16 10:49 68 16 123/66 97 06/15/16 10:25 76 16 99/55 97 06/15/16 08:16 98.0 66 16 94/57 98 06/15/16 04:00 97.5 66 22 109/73 97 06/15/16 00:15 97.6 70 22 146/83 96 06/14/16 23:54 18 06/14/16 22:38 78 20 121/73 98 Room Air 06/14/16 20:53 80 20 167/73 97 Room Air 06/14/16 18:15 16 06/14/16 17:15 16 97 Room Air 06/14/16 17:04 84 16 06/14/16 16:22 98.4 87 20 150/87 99 Physical Exam GENERAL: Well-nourished, well-developed pleasant middle-aged male patient in [facility]. Ambulatory. SKIN: Warm and dry. No rash. HEAD: Normocephalic. Atraumatic. EYES: Pupils equal and round. No scleral icterus. No injection or drainage. ENT: No nasal bleeding or discharge. Mucous membranes pink and moist. NECK: Supple. Trachea midline. CARDIOVASCULAR: Regular rate and rhythm. S1, S2 noted. No murmur appreciated. RESPIRATORY: No accessory muscle use. Clear to auscultation. Breath sounds equal bilaterally. GASTROINTESTINAL: Abdomen soft, non-tender, nondistended. Normoactive bowel sounds x4. GENITOURINARY: Left-sided nephrostomy tube in place with bandage CDI. MUSCULOSKELETAL: No obvious deformities. Extremities without clubbing, cyanosis , or edema. NEUROLOGICAL: Awake and alert. No obvious cranial nerve deficits. Normal speech. Laboratory Laboratory Tests Test 06/14/16 06/14/16 17:00 17:25 Urine Color YELLOW Urine Turbidity CLEAR Urine pH 6.0 Urine Specific [place] 1.028 Urine Protein 30 Urine Glucose (UA) NEG Urine Ketones TRACE Urine Occult Blood MOD Urine Nitrite POS Urine Bilirubin NEG Urine Leukocyte Esterase SMALL Urine RBC 10-14 Urine WBC 25-49 Urine Squamous Epithelial 0-5 Cells Urine Bacteria FEW Urine Mucus FEW Microscopic Urinalysis Comment CULTURE INDICATED White Blood Count 10.1 Red Blood Count 4.29 Hemoglobin 13.1 Hematocrit 37.8 Mean Corpuscular Volume 88.0 Mean Corpuscular Hemoglobin 30.6 Mean Corpuscular Hemoglobin 34.8 Concent Red Cell Distribution Width 13.6 Platelet Count 344 Mean Platelet Volume 7.9 Neutrophils (%) (Auto) 60.0 Lymphocytes (%) (Auto) 27.8 Monocytes (%) (Auto) 7.8 Eosinophils (%) (Auto) 3.9 Basophils (%) (Auto) 0.5 Neutrophils # (Auto) 6.0 Lymphocytes # (Auto) 2.8 Monocytes # (Auto) 0.8 Eosinophils # (Auto) 0.4 Basophils # (Auto) 0.1 CBC Comment DIFF FINAL Differential Comment Sodium Level 145 Potassium Level 3.9 Chloride Level 112 Carbon Dioxide Level 22.9 Anion Gap 10 Blood Urea Nitrogen 15 Creatinine 1.00 Estimat Glomerular Filtration 82 Rate Random Glucose 80 Calcium Level 8.6 Date/Time Procedure Status Source Growth 06/14/16 17:00 Urine Culture Received Urine Clean Catch Pending Result Diagram: 06/14/16 1725 06/14/16 1725 Imaging Last Impressions Nephrostomy Tube Change 06/15/16 0000 Signed Impressions: Service Date/Time: Monday, June 15, 2016 09:36 - CONCLUSION: 1. Uncomplicated nephrostomy tube exchange as above. 2. Tube was upsized to 10 [place] due to frequent occlusion secondary to extensive calcific concretions. We've also schedule the patient for routine tube changes every month until urologic surgery is performed Mushtaq Aguirre MD Assessment and Plan Assessment and Plan 45-year-old male with history of nephrolithiasis s/p multiple lithotripsies and nephrostomy tube, anxiety, PTSD, tobacco use, presents with no output from his nephrostomy tube x8hrs and associated flank pain. Patient has an extensive history of kidney stones, had multiple lithotripsies, ureteral stents, and has had complications with an embedded stone in the ureter. He had a nephrostomy tube placed on 04/08/16. He has been following with Dr. Cuellar urology for all of his procedures however has recently been referred to [facility] in [place] for ureteral resection. Nephrostomy Tube Dysfunction: no output x8hrs prior to arrival. Consulted IR, reported heavy concretions in the catheter, replaced tube with larger 10french, and provided the patient with business card to have tube exchanged qmonthly as outpatient. The patient is feeling much better, having clear yellow output in nephrostomy tube/bag, he wants to go home. Patient reports Dr. Cuellar referred him to [place] at [facility] and has an appointment on 06/21. UTI: UA with positive nitrites, leuks, WBCs. Afebrile, no leukocytosis. Given IV Rocephin however reviewed EMR and prior urine cultures grew Staph Epidermidis resistant to Rocephin, therefore started IV Cipro and given prescription for po Cipro at discharge. Monitor urine culture, patient instructed to f/up with PCP or urologist for urine culture results. DVT Prophylaxis: ambulation, avoid chemical prophylaxis with procedure as above Written by Edita Batista, acting as scribe for Dr. Mahajan on 06/15/16 at 13: 04. 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 I, Dr. Lelo Mahajan personally performed the history, physical exam, and medical decision making; and confirmed the accuracy of the information in the transcribed note. Edita Batista PA-C Jun 15, 2016 13:05 Lelo Mahajan MD Jun 20, 2016 12:23
[2016-06-15] MEDS ORDERED: HYDR-3516 PO (13:12)
== END 2016-06-15 14:21 | disposition home or self-care (01) ==
LOC: PHED 16:16 → PHEDA 17:54 → NEPHCDU 06-15 00:14
PROVIDERS: ADMIT Family Medicine; ATTEND Family Medicine
DX: T83.092A Other mechanical complication of nephrostomy catheter, initial encounter (principal); F43.10 Post-traumatic stress disorder, unspecified; N39.0 Urinary tract infection, site not specified; F41.9 Anxiety disorder, unspecified; Z87.442 Personal history of urinary calculi; F17.200 Nicotine dependence, unspecified, uncomplicated; Y83.3 Surgical operation with formation of external stoma as the cause of abnormal reaction of the patient, or of later complication, without mention of misadventure at the time of the procedure
CPT/HCPCS: 50435; 80048; 81001; 85025; 86403; 87077; 87086; 87186; 96374; 96375; 99152; 99153; 99284; C1729; C1769; G0378; J0696; J0744; J1885; J1956; J2250; J2270; J2405; J3010; J7030; Q9967

== ENCOUNTER 2016-09-25 21:02 | Emergency (ER) | payer SELFPAY ==
[~2016-09-25 21:02] MED LIST changes: -BACT800T5 PO; +CIPR-9 PO; -ZOFR4TAB PO
[2016-09-26] MEDS ORDERED: ZOFR4TAB3 SL (12:27)
[2016-09-26] MEDS ORDERED: PERC2.5T PO (12:27)
[2016-09-26] MEDS ORDERED: CEPH-460 PO (12:27)
[2016-09-26] MEDS ORDERED: PERC5TAB12 PO (14:18)
== END 2016-09-25 21:30 | disposition left against medical advice (07) ==
LOC: PHED 21:02
DX: R10.9 Unspecified abdominal pain (principal)
CPT/HCPCS: 99281

== ENCOUNTER 2016-09-26 09:50 | Emergency (ER) | payer SELFPAY ==
[~2016-09-26] VITALS: Ht 188 cm; Wt 113.3 kg
[2016-09-26 10:04] VITALS: BP 167/85; PULSE 102; RESP 16; TEMP 100; O2SAT 98
[2016-09-26 10:19] LABS: BLOOD, URINE LARGE (NEG); GLUCOSE,URINE NEG (NEG); KETONE, URINE TRACE mg/dL (NEG)
[2016-09-26 10:20] LABS: NITRITE,URINE POS (NEG)
[2016-09-26 10:29] LABS: METHOD OF COLLECTION CLEAN CATCH; URINE COLOR STRAW (YELLW/STRAW)
[2016-09-26] MEDS ORDERED: ONDANSETRON HCL 4 MG/2 ML VIAL IVP ONE (10:30)
[2016-09-26] MEDS ORDERED: KETOROLAC TROMETHAMINE 30 MG/ML (IVP) VIAL IV PUSH ONE (10:30)
[2016-09-26] MEDS ORDERED: SODIUM CHLORIDE 0.9% FLUSH 10 ML FLUSH IV FLUSH PRN (10:30)
[2016-09-26] MEDS ORDERED: HYDROmorphone HCL PF 2 MG/ML VIAL IVS ONE (10:30)
[2016-09-26 10:32] LABS: BACTERIA, URINE MOD /hpf; SQUAMOUS EPITHELIAL CELL URINE 0-2 /hpf (0-5); WBC, URINE INNUM /hpf (0-5)
[2016-09-26 10:33] LABS: COMMENT (UR) CULTURE INDICATED; CULTURE IF INDICATED CULTURE INDICATED; TRANSITIONAL EPI CELLS, URINE 0-2 /hpf
[2016-09-26 10:44] LABS: AUTOMATED NEUTROPHIL # 10.5 TH/MM3 (1.8-7.7); BASOPHIL % 0.1 % (0.0-2.0); EOSINOPHIL # 0.1 TH/MM3 (0-0.4); EOSINOPHIL % 0.4 % (0.0-4.0); HEMATOCRIT 40.6 % (39.0-51.0); HEMO FLAGS DIFF FINAL; LYMPH % 12.2 % (9.0-44.0); LYMPHOCYTE # 1.6 TH/MM3 (1.0-4.8); MEAN CELL VOLUME 87.7 FL (80.0-100.0); MEAN CORPUSCULAR HGB CONC 34.2 % (32.0-36.0); MONO % 9.3 % (0.0-8.0); PLATELET COUNT 318 TH/MM3 (150-450); RED BLOOD COUNT 4.63 MIL/MM3 (4.50-5.90); RED CELL DISTRIBUTION WIDTH 12.9 % (11.6-17.2); WHITE BLOOD COUNT 13.4 TH/MM3 (4.0-11.0)
[2016-09-26 10:50] LABS: POTASSIUM 3.7 MEQ/L (3.5-5.1)
[2016-09-26 10:53] LABS: BICARBONATE 24.5 MEQ/L (21.0-32.0)
--- NOTE | 2016-09-26 11:05 | PD ---
HPI Chief Complaint: Flank/Kidney Pain Time Seen by Provider: 10:17 Travel History International Travel<30 days: No Contact w/Intl Traveler<30days: No Traveled to known affect area: No History of Present Illness HPI 45 yo M c/o right flank pain starting several hours previously while he was asleep. pain is constant and radiates toward the groin. no fever/chills. no vomiting. + nausea. pt has hx recurrent kidney stones with nephrostomy within last few months. onset sudden. PFSH Past Medical History Blood Disorders: No Anxiety: Yes Depression: Yes (PTSD) Heart Rhythm Problems: No Cancer: No Cardiovascular Problems: No High Cholesterol: No Chemotherapy: No Chest Pain: No Congestive Heart Failure: No Diabetes: No Diminished Hearing: No Endocrine: No Genitourinary: Yes (LEFT NEPHROSTOMY) Hypertension: No Immune Disorder: No Kidney Stones: Yes Musculoskeletal: Yes (Chronic back pain) Neurologic: No Psychiatric: Yes Reproductive: No Respiratory: No Immunizations Current: No Radiation Therapy: No Thyroid Disease: No Influenza Vaccination: No Past Surgical History Abdominal Surgery: No Body Medical Devices: Left nephrostomy tube. Cardiac Surgery: No Ear Surgery: No Endocrine Surgery: No Eye Surgery: No Genitourinary Surgery: Yes (Lithotripsy, STENT PLACED AND REMOVED,nephrostomy tube placed x 2 Lt kidney) Gynecologic Surgery: No Joint Replacement: No Neurologic Surgery: No Oral Surgery: No Pacemaker: No Thoracic Surgery: No Other Surgery: Yes (LITHOTRIPSY MULTIPLE TIMES,) Social History Alcohol Use: Yes (DAILY) Tobacco Use: Yes (1 PACK DAILY) Substance Use: No Allergies-Medications (Allergen,Severity, Reaction): Coded Allergies: No Known Allergies (Verified , 09/26/16) Reported Meds & Prescriptions Reported Meds & Active Scripts Active Zofran Odt (Ondansetron Odt) 4 Mg Tab 4 Mg SL Q8HR PRN Keflex (Cephalexin) 500 Mg Cap 500 Mg PO Q8H 7 Days Percocet (Oxycodone-Acetaminophen) 2.5-325 mg Tab 2 Tab PO QID PRN Review of Systems Except as stated in HPI: all other systems reviewed are Neg General / Constitutional: No: Fever Genitourinary: Positive: Flank Pain Physical Exam Narrative GENERAL: 45 yo M, wnwd, mild to moderate distress 2/2 pain SKIN: Warm and dry. HEAD: Atraumatic. Normocephalic. EYES: Pupils equal and round. No scleral icterus. No injection or drainage. ENT: No nasal bleeding or discharge. Mucous membranes pink and moist. NECK: Trachea midline. No JVD. CARDIOVASCULAR: Regular rate and rhythm. RESPIRATORY: No accessory muscle use. Clear to auscultation. Breath sounds equal bilaterally. GASTROINTESTINAL: ttp right flank. MUSCULOSKELETAL: Extremities without clubbing, cyanosis, or edema. No obvious deformities. NEUROLOGICAL: Awake and alert. No obvious cranial nerve deficits. Motor grossly within normal limits. Five out of 5 muscle strength in the arms and legs. Normal speech. PSYCHIATRIC: Appropriate mood and affect; insight and judgment normal. Data Data Last Documented VS Vital Signs Date Time Temp Pulse Resp B/P Pulse Ox O2 Delivery O2 Flow Rate FiO2 09/26/16 12:47 90 16 115/66 96 Room Air 09/26/16 10:04 100.0 vs reviewed Orders Urinalysis - C+S If Indicated (09/26/16 10:06) Basic Metabolic Panel (Bmp) (09/26/16 10:21) Complete Blood Count With Diff (09/26/16 10:21) Urinalysis - C+S If Indicated (09/26/16 10:21) Iv Access Insert/Monitor (09/26/16 10:21) Ecg Monitoring (09/26/16 10:21) Oximetry (09/26/16 10:21) Hydromorphone Pf Inj (Dilaudid Pf Inj) (09/26/16 10:30) Ondansetron Inj (Zofran Inj) (09/26/16 10:30) Sodium Chloride 0.9% Flush (Ns Flush) (09/26/16 10:30) Ketorolac Inj (Toradol Inj) (09/26/16 10:30) Urine Culture (09/26/16 10:07) Ct Abd/Pel W/O Iv Contrast (09/26/16 10:53) Ceftriaxone Inj (Rocephin Inj) (09/26/16 11:15) Ondansetron Inj (Zofran Inj) (09/26/16 12:00) Sodium Chlor 0.9% 1000 Ml Inj (Ns 1000 M (09/26/16 12:30) Cephalexin (Keflex) (09/26/16 12:30) Labs Laboratory Tests Test 09/26/16 09/26/16 10:07 10:35 Urine Collection Type CLEAN CATCH Urine Color STRAW Urine Turbidity CLOUDY Urine pH 6.0 Urine Specific [place] 1.015 Urine Protein NEG mg/dL Urine Glucose (UA) NEG mg/dL Urine Ketones TRACE mg/dL Urine Occult Blood LARGE Urine Nitrite POS Urine Bilirubin NEG Urine Leukocyte Esterase MOD Urine RBC 20-24 /hpf Urine WBC INNUM /hpf Urine WBC Clumps FEW Urine Squamous Epithelial 0-2 /hpf Cells Urine Transitional Epithelial 0-2 /hpf Cells Urine Bacteria MOD /hpf Microscopic Urinalysis Comment CULTURE INDICATED White Blood Count 13.4 TH/MM3 Red Blood Count 4.63 MIL/MM3 Hemoglobin 13.9 GM/DL Hematocrit 40.6 % Mean Corpuscular Volume 87.7 FL Mean Corpuscular Hemoglobin 30.0 PG Mean Corpuscular Hemoglobin 34.2 % Concent Red Cell Distribution Width 12.9 % Platelet Count 318 TH/MM3 Mean Platelet Volume 7.5 FL Neutrophils (%) (Auto) 78.0 % Lymphocytes (%) (Auto) 12.2 % Monocytes (%) (Auto) 9.3 % Eosinophils (%) (Auto) 0.4 % Basophils (%) (Auto) 0.1 % Neutrophils # (Auto) 10.5 TH/MM3 Lymphocytes # (Auto) 1.6 TH/MM3 Monocytes # (Auto) 1.2 TH/MM3 Eosinophils # (Auto) 0.1 TH/MM3 Basophils # (Auto) 0.0 TH/MM3 CBC Comment DIFF FINAL Differential Comment Sodium Level 141 MEQ/L Potassium Level 3.7 MEQ/L Chloride Level 106 MEQ/L Carbon Dioxide Level 24.5 MEQ/L Anion Gap 11 MEQ/L Blood Urea Nitrogen 11 MG/DL Creatinine 1.10 MG/DL Estimat Glomerular Filtration 73 ML/MIN Rate Random Glucose 155 MG/DL Calcium Level 8.5 MG/DL [facility] Medical Decision Making Medical Screen Exam Complete: Yes Emergency Medical Condition: Yes Medical Record Reviewed: Yes Differential Diagnosis Constipation, Gastritis, Acute Cholecystitis, Biliary Colic, Pancreatitis, SANCHES , Hepatitis, Bowel Obstruction, Cystitis, Mesenteric Ischemia, AAA, Appendicitis , Renal Stone/Hydronephrosis, GERD, perforated viscous Narrative Course CBC & BMP Diagram 09/26/16 10:35 UA: UTI PRESENT Last 24 hours Impressions Abdomen/Pelvis CT 09/26/16 1053 Signed Impressions: Service Date/Time: Monday, September 26, 2016 11:32 - CONCLUSION: Slight hydronephrosis right kidney due to an approximate 4-5 mm distal ureteral stone. Titi Weathers MD [id number]: PAIN CONTROLLED, PT RESTING COMFORTABLY, RETURN PRECAUTIONS DISCUSSED, OPIOID PRECAUTIONS DISCUSSED, OUTPT FOLLOW UP DISCUSSED Diagnosis Primary Impression: Right ureteral calculus Additional Impression: UTI (urinary tract infection) Qualified Code: N30.01 - Acute cystitis with hematuria Referrals: Terrell Gabriel DO 2 days Additional Instructions: PLEASE RETURN TO THE ER IF YOU DEVELOP FEVER, VOMITING OR UNCONTROLLED PAIN, ESPECIALLY WITHIN THE NEXT 8 TO 10 HOURS. PLEASE FOLLOW UP WITH UROLOGIST, DR GABRIEL. PLEASE DO NOT DRIVE OR WORK AFTER TAKING PERCOCET IT WILL ALTER YOUR SENSORIUM AND JUDGEMENT. PLAN ON TAKING A NAP OR GOING TO SLEEP AFTER TAKING PERCOCET. Scripts Ondansetron Odt (Zofran Odt)4 Mg Tab4 Mg SL Q8HR PRN (Nausea/Vomiting) #10 TAB Ref 0 Prov:Donte Lara MD 09/26/16 Cephalexin (Keflex)500 Mg [id number] Mg PO Q8H 7 Days Ref 0 Prov:Donte Lara MD 09/26/16 Oxycodone-Acetaminophen (Percocet)2.5-325 mg Tab2 Tab PO QID PRN (PAIN SCALE 6 TO 10) #20 TAB Ref 0 Prov:Donte Lara MD 09/26/16 Disposition: 01 DISCHARGE HOME Condition: Stable Donte Lara MD Sep 26, 2016 11:05
[2016-09-26] MEDS ORDERED: cefTRIAXone INJ 1,000 MG in SODIUM CHLORIDE 0.9% INJ 100 ML IV ONE (11:15)
[2016-09-26 11:18] VITALS: BP 99/65; PULSE 85; RESP 16; O2SAT 95
[2016-09-26 11:19] VITALS: RESP 16; O2SAT 96
[2016-09-26] MEDS ORDERED: ONDANSETRON HCL 4 MG/2 ML VIAL IV PUSH ONE (12:00)
--- NOTE | 2016-09-26 12:13 | RADRPT ---
EXAM DATE/TIME: 09/26/2016 11:32 [facility] COMPARISON: CT ABDOMEN & PELVIS W/O CONTRAST, September 29, 2012, 10:42. INDICATIONS : Right flank pain. Evaluate for calculi. ORAL CONTRAST: No oral contrast ingested. RADIATION DOSE: 23.70 CTDIvol (mGy) MEDICAL HISTORY : Renal calculi. SURGICAL HISTORY : None. ENCOUNTER: Initial ACUITY: 3 days PAIN SCALE: 5/10 LOCATION: Right flank TECHNIQUE: Volumetric scanning of the abdomen and pelvis was performed. Using automated exposure control and adjustment of the mA and/or kV according to patient size, radiation dose was kept as low as reasonably achievable to obtain optimal diagnostic quality images. DICOM format image data is av ailable electronically for review and comparison. FINDINGS: CT Abdomen: There is slight hydronephrosis in the right kidney due to an approximate 4-5 mm distal ur eteral stone. There are 2 separate approximate 4 mm stones in the left kidney nonobstructing. The spl een, pancreas, adrenals are unremarkable. There is no evidence for any appreciable pathological adeno dusty, free fluid, or bowel obstruction. The liver is fatty without focal lesions or technique. CT pelvis: There is no evidence for mass, abscess formation, or any significant adenopathy within the pelvis. The prostate gland is inhomogeneous and measures 3.4 x 4.4 cm in AP and transverse diameters and nonspecific. There is chronic sclerosis of bilateral sacrum near the SI joint anteriorly chronic in nature not changed since 2012. CONCLUSION: Slight hydronephrosis right kidney due to an approximate 4-5 mm distal ureteral stone . Titi Weathers MD on September 26, 2016 at 12:07 Board Certified Radiologist. This report was verified electronically.
[2016-09-26] MEDS ORDERED: CEPH-460 PO (12:27)
[2016-09-26] MEDS ORDERED: PERC2.5T PO (12:27)
[2016-09-26] MEDS ORDERED: ZOFR4TAB3 SL (12:27)
[2016-09-26] MEDS ORDERED: CEPHALEXIN MONOHYDRATE 500 MG CAP PO ONE (12:30)
[2016-09-26] MEDS ORDERED: SODIUM CHLOR 0.9% 1000 ML INJ 1,000 ML IV ONE (12:30)
[2016-09-26 12:47] VITALS: BP 115/66; PULSE 90; RESP 16; O2SAT 96
[2016-09-26] MEDS ORDERED: PERC5TAB12 PO (14:18)
== END 2016-09-26 13:29 | disposition home or self-care (01) ==
LOC: PHED 09:50
DX: N20.1 Calculus of ureter (principal); N30.01 Acute cystitis with hematuria; B95.61 Methicillin susceptible Staphylococcus aureus infection as the cause of diseases classified elsewhere; R11.0 Nausea; F17.200 Nicotine dependence, unspecified, uncomplicated; Z87.442 Personal history of urinary calculi; Z86.59 Personal history of other mental and behavioral disorders; Z87.39 Personal history of other diseases of the musculoskeletal system and connective tissue
CPT/HCPCS: 74176; 80048; 81001; 85025; 86403; 87086; 87186; 96361; 96365; 96375; 96376; 99285; J0696; J1170; J1885; J2405; J7030

== ENCOUNTER 2016-10-09 03:24 | Emergency (ER) | payer SELFPAY ==
[~2016-10-09] VITALS: Ht 182.9 cm; Wt 114.2 kg
[~2016-10-09 03:24] MED LIST changes: +CEPH-460 PO; -CIPR-9 PO; -HYDR-3516 PO; +PERC5TAB12 PO; +ZOFR4TAB3 SL
[2016-10-09 03:29] VITALS: BP 158/83; PULSE 95; RESP 20; TEMP 98.3; O2SAT 99
[2016-10-09] MEDS ORDERED: SODIUM CHLOR 0.9% 1000 ML INJ 1,000 ML IV ONE (03:56)
[2016-10-09] MEDS ORDERED: ONDANSETRON HCL 4 MG/2 ML VIAL IVP ONE (04:00)
[2016-10-09] MEDS ORDERED: SODIUM CHLORIDE 0.9% FLUSH 10 ML FLUSH IVF PRN (04:00)
[2016-10-09] MEDS ORDERED: KETOROLAC TROMETHAMINE 30 MG/ML (IVP) VIAL IVP ONE (04:00)
[2016-10-09] MEDS ORDERED: HYDROmorphone HCL PF 1 MG/ML VIAL IVS ONE (04:00)
--- NOTE | 2016-10-09 04:01 | PD ---
HPI Chief Complaint: Flank/Kidney Pain Time Seen by Provider: 03:53 Travel History International Travel<30 days: No Contact w/Intl Traveler<30days: No Traveled to known affect area: No History of Present Illness HPI The patient is a 45-year-old male that had a right ureteral stone on the of last month. The stone, according to the CT scan done at that time, showed slight hydronephrosis of the right kidney and was 4-5 mm in the distal ureter. He complains of severe pain tonight. He ran out of all pain medicines that they gave him on the . He has not seen a urologist yet. He does not have insurance and is trying to get patient assistance. PFSH Past Medical History Blood Disorders: No Anxiety: Yes Depression: Yes (PTSD) Heart Rhythm Problems: No Cancer: No Cardiovascular Problems: No High Cholesterol: No Chemotherapy: No Chest Pain: No Congestive Heart Failure: No Diabetes: No Diminished Hearing: No Endocrine: No Genitourinary: Yes (LEFT NEPHROSTOMY) Hypertension: No Immune Disorder: No Kidney Stones: Yes Musculoskeletal: Yes (Chronic back pain) Neurologic: No Psychiatric: Yes Reproductive: No Respiratory: No Immunizations Current: No Radiation Therapy: No Shingles: Yes Thyroid Disease: No Past Surgical History Abdominal Surgery: No Body Medical Devices: Left nephrostomy tube. Cardiac Surgery: No Ear Surgery: No Endocrine Surgery: No Eye Surgery: No Genitourinary Surgery: Yes (Lithotripsy, STENT PLACED AND REMOVED,nephrostomy tube placed x 2 Lt kidney) Gynecologic Surgery: No Joint Replacement: No Neurologic Surgery: No Oral Surgery: No Pacemaker: No Thoracic Surgery: No Other Surgery: Yes (LITHOTRIPSY MULTIPLE TIMES) Social History Alcohol Use: Yes (DAILY) Tobacco Use: Yes (1 PACK DAILY) Substance Use: No Allergies-Medications (Allergen,Severity, Reaction): Coded Allergies: No Known Allergies (Verified , 10/09/16) Reported Meds & Prescriptions Reported Meds & Active Scripts Active Zofran Odt (Ondansetron Odt) 4 Mg Tab 4 Mg SL Q8HR PRN Review of Systems Except as stated in HPI: all other systems reviewed are Neg Physical Exam Narrative GENERAL: The patient is alert, oriented 3 in severe distress with her right flank pain. His vital signs show pulse of 95, blood pressure 158/83 but are otherwise normal. SKIN: Focused skin assessment warm/dry. HEAD: Atraumatic. Normocephalic. EYES: Pupils equal and round. No scleral icterus. No injection or drainage. ENT: No nasal bleeding or discharge. Mucous membranes pink and moist. NECK: Trachea midline. No JVD. CARDIOVASCULAR: Regular rate and rhythm. No murmur appreciated. RESPIRATORY: No accessory muscle use. Clear to auscultation. Breath sounds equal bilaterally. GASTROINTESTINAL: Abdomen soft, with tenderness to direct palpation over the right UVJ area, nondistended. Hepatic and splenic margins not palpable. No guarding or rebound is present. MUSCULOSKELETAL: No obvious deformities. No clubbing. No cyanosis. No edema. NEUROLOGICAL: Awake and alert. No obvious cranial nerve deficits. Motor grossly within normal limits. Normal speech. PSYCHIATRIC: Appropriate mood and affect; insight and judgment normal. Data Data Last Documented VS Vital Signs Date Time Temp Pulse Resp B/P Pulse Ox O2 Delivery O2 Flow Rate FiO2 10/09/16 04:32 86 142/87 97 Room Air 10/09/16 03:29 98.3 20 Orders Complete Blood Count With Diff (10/09/16 03:56) Basic Metabolic Panel (Bmp) (10/09/16 03:56) Urinalysis - C+S If Indicated (10/09/16 03:56) Ecg Monitoring (10/09/16 03:56) Iv Access Insert/Monitor (10/09/16 03:56) Ketorolac Inj (Toradol Inj) (10/09/16 04:00) Ondansetron Inj (Zofran Inj) (10/09/16 04:00) Sodium Chloride 0.9% Flush (Ns Flush) (10/09/16 04:00) Sodium Chlor 0.9% 1000 Ml Inj (Ns 1000 M (10/09/16 03:56) Hydromorphone Pf Inj (Dilaudid Pf Inj) (10/09/16 04:00) Tamsulosin (Flomax) (10/09/16 04:15) Hydromorphone Pf Inj (Dilaudid Pf Inj) (10/09/16 04:30) Urine Culture (10/09/16 04:25) Labs Laboratory Tests Test 10/09/16 10/09/16 03:45 04:25 White Blood Count 17.4 TH/MM3 Red Blood Count 4.48 MIL/MM3 Hemoglobin 13.3 GM/DL Hematocrit 39.2 % Mean Corpuscular Volume 87.5 FL Mean Corpuscular Hemoglobin 29.8 PG Mean Corpuscular Hemoglobin 34.0 % Concent Red Cell Distribution Width 13.8 % Platelet Count 486 TH/MM3 Mean Platelet Volume 7.9 FL Neutrophils (%) (Auto) 78.5 % Lymphocytes (%) (Auto) 14.8 % Monocytes (%) (Auto) 5.4 % Eosinophils (%) (Auto) 0.7 % Basophils (%) (Auto) 0.6 % Neutrophils # (Auto) 13.7 TH/MM3 Lymphocytes # (Auto) 2.6 TH/MM3 Monocytes # (Auto) 0.9 TH/MM3 Eosinophils # (Auto) 0.1 TH/MM3 Basophils # (Auto) 0.1 TH/MM3 CBC Comment DIFF FINAL Differential Comment Sodium Level 137 MEQ/L Potassium Level 5.1 MEQ/L Chloride Level 106 MEQ/L Carbon Dioxide Level 20.2 MEQ/L Anion Gap 11 MEQ/L Blood Urea Nitrogen 14 MG/DL Creatinine 1.40 MG/DL Estimat Glomerular Filtration 55 ML/MIN Rate Random Glucose 167 MG/DL Calcium Level 8.9 MG/DL Urine Color YELLOW Urine Turbidity CLOUDY Urine pH 6.0 Urine Specific [place] 1.016 Urine Protein NEG mg/dL Urine Glucose (UA) NEG mg/dL Urine Ketones NEG mg/dL Urine Occult Blood LARGE Urine Nitrite NEG Urine Bilirubin NEG Urine Leukocyte Esterase TRACE Urine RBC 100-200 /hpf Urine WBC 25-49 /hpf Urine Squamous Epithelial 0-5 /hpf Cells Microscopic Urinalysis Comment CULTURE INDICATED MDM Medical Decision Making Medical Screen Exam Complete: Yes Emergency Medical Condition: Yes Medical Record Reviewed: Yes Differential Diagnosis Right ureteral stone, drug seeking behaviorunlikely, urinary tract infection, dissecting aortic aneurysmhighly unlikely Narrative Course The patient has a right ureteral stone. It is now 0524 and the patient has only a pain of 2/10. He has no nausea now. Plan: The patient will be given prescriptions for Flomax, Phenergan, Percocet and Motrin. He is told to take the Motrin regular, 1 tablet 3 times daily. He is to follow-up with a urologist. Diagnosis Primary Impression: Right ureteral calculus Additional Instructions: As we discussed, follow-up with urology as soon as possible. If the pain suddenly stops, you may have passed the stone and a urology appointment is not necessary. The urologist can pull that stone out from its position if necessary. Med/Other Pt SpecificInfo: Prescription(s) given Scripts Tamsulosin (Flomax)0.4 Mg Cap0.8 Mg PO HS #60 CAP Ref 0 Prov:Zeb Krause MD 10/09/16 Ibuprofen 800 Mg [id number] Mg PO TID #44 TAB Ref 0 Prov:Zeb Krause MD 10/09/16 Oxycodone-Acetaminophen (Percocet)10-325 mg Tab1 Tab PO Q4H PRN (PAIN) #30 TAB Ref 0 Prov:Zeb Krause MD 10/09/16 Promethazine (Phenergan)25 Mg [id number] Mg PO Q6H PRN (NAUSEA OR VOMITING) #30 TAB Ref 0 Prov:Zeb Krause MD 10/09/16 Disposition: 01 DISCHARGE HOME Condition: Stable Zeb Krause MD Oct 09, 2016 04:01
[2016-10-09 04:12] LABS: AUTOMATED NEUTROPHIL # 13.7 TH/MM3 (1.8-7.7); BASOPHIL # 0.1 TH/MM3 (0-0.2); BASOPHIL % 0.6 % (0.0-2.0); EOSINOPHIL # 0.1 TH/MM3 (0-0.4); EOSINOPHIL % 0.7 % (0.0-4.0); HEMATOCRIT 39.2 % (39.0-51.0); LYMPH % 14.8 % (9.0-44.0); LYMPHOCYTE # 2.6 TH/MM3 (1.0-4.8); MEAN CELL VOLUME 87.5 FL (80.0-100.0); MEAN CORPUSCULAR HEMOGLOBIN 29.8 PG (27.0-34.0); MONO % 5.4 % (0.0-8.0); NEUT % 78.5 % (16.0-70.0); PLATELET COUNT 486 TH/MM3 (150-450); RED BLOOD COUNT 4.48 MIL/MM3 (4.50-5.90); RED CELL DISTRIBUTION WIDTH 13.8 % (11.6-17.2); WHITE BLOOD COUNT 17.4 TH/MM3 (4.0-11.0)
[2016-10-09] MEDS ORDERED: TAMSULOSIN HCL 0.4 MG CAP PO ONE (04:15)
[2016-10-09 04:24] LABS: HEMO FLAGS DIFF FINAL
[2016-10-09 04:25] LABS: BICARBONATE 20.2 MEQ/L (21.0-32.0)
[2016-10-09 04:28] LABS: POTASSIUM 5.1 MEQ/L (3.5-5.1)
[2016-10-09] MEDS ORDERED: HYDROmorphone HCL PF 1 MG/ML VIAL IVP ONE (04:30)
[2016-10-09 04:32] VITALS: BP 142/87; PULSE 86; O2SAT 97
[2016-10-09 04:35] LABS: BLOOD, URINE LARGE (NEG); GLUCOSE,URINE NEG (NEG); KETONE, URINE NEG (NEG); NITRITE,URINE NEG (NEG)
[2016-10-09 04:39] LABS: URINE COLOR YELLOW (YELLW/STRAW)
[2016-10-09 04:40] LABS: RBC, URINE 100-200 /hpf (0-3); SQUAMOUS EPITHELIAL CELL URINE 0-5 /hpf (0-5)
[2016-10-09 04:41] LABS: COMMENT (UR) CULTURE INDICATED; CULTURE IF INDICATED CULTURE INDICATED
[2016-10-09] MEDS ORDERED: IBUP800T23 PO (05:26)
[2016-10-09] MEDS ORDERED: TAMS5CAP PO (05:26)
[2016-10-09] MEDS ORDERED: PERC10TA27 PO (05:26)
[2016-10-09] MEDS ORDERED: PROM25TA10 PO (05:26)
== END 2016-10-09 05:43 | disposition home or self-care (01) ==
LOC: PHED 03:24
DX: N20.1 Calculus of ureter (principal); B95.61 Methicillin susceptible Staphylococcus aureus infection as the cause of diseases classified elsewhere; F17.200 Nicotine dependence, unspecified, uncomplicated; Z86.59 Personal history of other mental and behavioral disorders; Z87.448 Personal history of other diseases of urinary system; Z87.39 Personal history of other diseases of the musculoskeletal system and connective tissue; Z86.69 Personal history of other diseases of the nervous system and sense organs
CPT/HCPCS: 80048; 81001; 85025; 87086; 96361; 96374; 96375; 96376; 99284; J1170; J1885; J2405; J7030

== ENCOUNTER 2016-12-16 23:16 | Emergency (ER) | payer SELFPAY ==
[~2016-12-16] VITALS: Ht 188 cm; Wt 103.9 kg
[~2016-12-16 23:16] MED LIST changes: -CEPH-460 PO; +IBUP800T23 PO; +PERC10TA27 PO; -PERC5TAB12 PO; +PROM25TA10 PO; +TAMS5CAP PO
[2016-12-16 23:19] VITALS: BP 155/70; PULSE 69; RESP 22; TEMP 98.3; O2SAT 99
[2016-12-16] MEDS ORDERED: SODIUM CHLOR 0.9% 1000 ML INJ 1,000 ML IV ONE (23:40)
[2016-12-16] MEDS ORDERED: ONDANSETRON HCL 4 MG/2 ML VIAL IV PUSH ONE (23:45)
[2016-12-16] MEDS ORDERED: SODIUM CHLORIDE 0.9% FLUSH 10 ML FLUSH IVF PRN (23:45)
[2016-12-16] MEDS ORDERED: KETOROLAC TROMETHAMINE 30 MG/ML (IVP) VIAL IV PUSH ONE (23:45)
--- NOTE | 2016-12-16 23:45 | PD ---
HPI Chief Complaint: flank pain Time Seen by Provider: 23:35 Travel History International Travel<30 days: No Contact w/Intl Traveler<30days: No Traveled to known affect area: No History of Present Illness HPI 46-year-old male presents to the emergency department by private transportation for complaint of left flank pain radiating to the left abdominal pain. Symptoms radiating into the testicle. Patient has history of kidney stones and pain is the same. Symptoms of present since 6:30 PM. Patient has had nausea without vomiting. Patient denies fever chills. Patient had a one-time episode of hematuria but this subsequently has had only faint tinge of pink in the urine. Patient has been seen recently for right-sided kidney stones. Patient is not followed by urologist. Patient has taken no medications prior to arrival to the emergency department. Patient denies other medical history. Patient rates his pain 7/10 in intensity. Patient is unable to identify exacerbating or alleviating factors. PFSH Past Medical History Narrative Medical Anxiety depression chronic back pain kidney stone ureteral stent and nephrostomy tube tobacco use alcohol use; nursing notes reviewed Blood Disorders: No Anxiety: Yes Depression: Yes (PTSD) Heart Rhythm Problems: No Cancer: No Cardiovascular Problems: No High Cholesterol: No Chemotherapy: No Chest Pain: No Congestive Heart Failure: No Diabetes: No Diminished Hearing: No Endocrine: No Genitourinary: Yes (LEFT NEPHROSTOMY) Hypertension: No Immune Disorder: No Kidney Stones: Yes Musculoskeletal: Yes (Chronic back pain) Neurologic: No Psychiatric: Yes Reproductive: No Respiratory: No Immunizations Current: No Radiation Therapy: No Shingles: Yes Thyroid Disease: No Past Surgical History Abdominal Surgery: No Body Medical Devices: Left nephrostomy tube. Cardiac Surgery: No Ear Surgery: No Endocrine Surgery: No Eye Surgery: No Genitourinary Surgery: Yes (Lithotripsy, STENT PLACED AND REMOVED,nephrostomy tube placed x 2 Lt kidney) Gynecologic Surgery: No Joint Replacement: No Neurologic Surgery: No Oral Surgery: No Pacemaker: No Thoracic Surgery: No Other Surgery: Yes (LITHOTRIPSY MULTIPLE TIMES) Social History Alcohol Use: Yes (DAILY) Tobacco Use: Yes (1 PACK DAILY) Substance Use: No Allergies-Medications (Allergen,Severity, Reaction): Coded Allergies: No Known Allergies (Verified , 12/16/16) Reported Meds & Prescriptions Reported Meds & Active Scripts Active Zofran Odt (Ondansetron Odt) 4 Mg Tab 4 Mg SL Q6HR PRN Flomax (Tamsulosin HCl) 0.4 Mg Cap 0.4 Mg PO HS 7 Days Percocet (Oxycodone-Acetaminophen) 5-325 mg Tab 1 Tab PO Q6H PRN Keflex (Cephalexin) 500 Mg Capsule 500 Mg PO Q6H 7 Days Ibuprofen 800 Mg Tab 800 Mg PO TID Zofran Odt (Ondansetron Odt) 4 Mg Tab 4 Mg SL Q8HR PRN Review of Systems Except as stated in HPI: all other systems reviewed are Neg General / Constitutional: No: Fever, Chills HENT: No: Congestion Cardiovascular: No: Chest Pain or Discomfort Respiratory: No: Shortness of Breath Gastrointestinal: Positive: Nausea, Abdominal Pain Genitourinary: Positive: Hematuria, Flank Pain Musculoskeletal: No: Myalgias, Arthralgias Skin: No Rash Neurologic: No: Weakness Psychiatric: No: Anxiety, Depression Hematologic/Lymphatic: No: Easy Bruising Physical Exam Narrative GENERAL: Well-developed well-nourished male in no acute distress no respiratory distress SKIN: Warm and dry. HEAD: Normocephalic. EYES: No scleral icterus. No injection or drainage. NECK: Supple, trachea midline. No JVD or lymphadenopathy. CARDIOVASCULAR: Regular rate and rhythm without murmurs, gallops, or rubs. RESPIRATORY: Breath sounds equal bilaterally. No accessory muscle use. GASTROINTESTINAL: Abdomen soft, left sided abdominal pain tenderness to palpation left upper quadrant left lower quadrant without guarding or rebound, nondistended. MUSCULOSKELETAL: No cyanosis, or edema. BACK: Nontender without obvious deformity. Left-sided CVA tenderness. Data Data Last Documented VS Vital Signs Date Time Temp Pulse Resp B/P (MAP) Pulse Ox O2 Delivery O2 Flow Rate FiO2 12/17/16 03:05 71 16 155/90 (111) 100 12/17/16 01:30 Room Air 12/16/16 23:19 98.3 Orders Orders Complete Blood Count With Diff (12/16/16 23:40) Basic Metabolic Panel (Bmp) (12/16/16 23:40) Urinalysis - C+S If Indicated (12/16/16 23:40) Ecg Monitoring (12/16/16 23:40) Iv Access Insert/Monitor (12/16/16 23:40) Ketorolac Inj (Toradol Inj) (12/16/16 23:45) Ondansetron Inj (Zofran Inj) (12/16/16 23:45) Sodium Chloride 0.9% Flush (Ns Flush) (12/16/16 23:45) Sodium Chlor 0.9% 1000 Ml Inj (Ns 1000 M (12/16/16 23:40) Hydromorphone Pf Inj (Dilaudid Pf Inj) (12/17/16 00:15) Urine Culture (12/17/16 00:45) Ceftriaxone Inj (Rocephin Inj) (12/17/16 02:30) Blood Culture (12/17/16 02:21) Hydromorphone Pf Inj (Dilaudid Pf Inj) (12/17/16 02:30) Sodium Chlor 0.9% 1000 Ml Inj (Ns 1000 M (12/17/16 02:30) Tamsulosin (Flomax) (12/17/16 02:30) Ed Discharge Order (12/17/16 02:55) Mandatory Outpatient Referral (12/17/16 03:20) Labs Laboratory Tests Test 12/16/16 23:45 12/17/16 00:45 White Blood Count 14.3 TH/MM3 Red Blood Count 4.43 MIL/MM3 Hemoglobin 13.4 GM/DL Hematocrit 39.5 % Mean Corpuscular Volume 89.0 FL Mean Corpuscular Hemoglobin 30.2 PG Mean Corpuscular Hemoglobin Concent 33.9 % Red Cell Distribution Width 15.0 % Platelet Count 308 TH/MM3 Mean Platelet Volume 8.9 FL Neutrophils (%) (Auto) 73.3 % Lymphocytes (%) (Auto) 17.3 % Monocytes (%) (Auto) 6.9 % Eosinophils (%) (Auto) 2.1 % Basophils (%) (Auto) 0.4 % Neutrophils # (Auto) 10.4 TH/MM3 Lymphocytes # (Auto) 2.5 TH/MM3 Monocytes # (Auto) 1.0 TH/MM3 Eosinophils # (Auto) 0.3 TH/MM3 Basophils # (Auto) 0.1 TH/MM3 CBC Comment DIFF FINAL Differential Comment Blood Urea Nitrogen 15 MG/DL Creatinine 1.10 MG/DL Random Glucose 136 MG/DL Calcium Level 9.3 MG/DL Sodium Level 140 MEQ/L Potassium Level 3.3 MEQ/L Chloride Level 107 MEQ/L Carbon Dioxide Level 23.9 MEQ/L Anion Gap 9 MEQ/L Estimat Glomerular Filtration Rate 73 ML/MIN Urine Color YELLOW Urine Turbidity CLEAR Urine pH 5.5 Urine Specific [place] 1.030 Urine Protein TRACE mg/dL Urine Glucose (UA) NEG mg/dL Urine Ketones 15 mg/dL Urine Occult Blood LARGE Urine Nitrite POS Urine Bilirubin NEG Urine Leukocyte Esterase TRACE Urine RBC 10-14 /hpf Urine WBC 25-49 /hpf Urine Squamous Epithelial Cells 0-5 /hpf Urine Bacteria FEW /hpf Microscopic Urinalysis Comment CULTURE INDICATED MDM Medical Decision Making Medical Screen Exam Complete: Yes Emergency Medical Condition: Yes Medical Record Reviewed: Yes (CT 08/2016 identified a right distal ureter stone and times to 4 mm stones in the left kidney) Interpretation(s) CBC & BMP Diagram 12/16/16 23:45 Calcium Level 9.3 Vital Signs Date Time Temp Pulse Resp B/P (MAP) Pulse Ox O2 Delivery O2 Flow Rate FiO2 12/17/16 01:30 74 18 158/89 (112) 99 Room Air 12/16/16 23:40 74 18 12/16/16 23:19 98.3 69 22 155/70 (98) 99 Urinalysis large blood positive nitrites positive leukocyte esterase-positive WBCs 25-49 positive bacteria culture indicated Differential Diagnosis Flank pain, renal colic, obstructive uropathy, UTI, diverticulitis, colitis, musculoskeletal pain Narrative Course IV access obtained specimens collected and sent for resulting; patient understood 1 L normal saline, Toradol 30 mg IV, Zofran 4 mg IV Patient with ongoing pain therefore Dilaudid 1 mg IV is administered CBC with automated differential white count is elevated at 14,300 with 73% neutrophils; chemistries are within normal range except for mild hypokalemia of 3.3 Urinalysis resulted in positive for nitrites WBCs leukocyte esterase large blood and few bacteria cultures indicated; patient administered Rocephin 1 g IVPB as well as Flomax 0.4 mg by mouth Patient with ongoing pain additional dose of Dilaudid 0.5 mg administered along with additional IV fluids [address] abdomen and pelvis. Patient unwilling to have CT imaging due to previous multiple studies; patient aware that he has abnormal urinalysis with elevated white count but states he will not be admitted at this time. Patient will sign out AGAINST MEDICAL ADVICE due to leukocytosis abnormal urinalysis with clinical obstructive uropathy and history of recurrent kidney stones with most recent CT abdomen and pelvis kidney stone protocol identifying 2 left 4 mm nephrolithiasis. Patient will be provided medications for management of renal colic/obstructive uropathy/UTI and aware of possibility for pyelonephritis and encouraged to monitor temperature every 4 hours to follow-up with urologist return to the emergency room immediately for any change in his condition. AMA: The risks of leaving against medical advice without further evaluation treatment were discussed with the patient. These risks include cardiac dysfunction, cardiac dysrhythmia, possible heart attack, possible stroke or . The patient indicated understanding of these risks and appeared to have the capacity to make this decision. Mandatory referral ordered Diagnosis Primary Impression: Obstructive uropathy Additional Impressions: Kidney stone on left side UTI (urinary tract infection) Referrals: Urologist 3 days Call office to schedule follow-up appointment with urologist on-call urologist is Dr. Jones Patient Instructions: Narcotic given in the ED, General Instructions Additional Instructions: Increase fluid hydration Strain urine Complete course of antibiotic Follow-up with urologist Take medications as prescribed Take ibuprofen/Advil/Motrin 800 mg as often as every 8 hours as needed for pain associated with inflammation Return to the emergency department for any concerns or change in condition Med/Other Pt SpecificInfo: Prescription(s) given Scripts Ondansetron Odt (Zofran Odt) 4 Mg Tab 4 MG SL Q6HR Y for Nausea/Vomiting, #10 TAB 0 Refills Prov: Shannon Nogueira MD 12/17/16 Tamsulosin (Flomax) 0.4 Mg Cap 0.4 MG PO HS for Manage Prostate Problems for 7 Days, #7 CAP 0 Refills Prov: Shannon Nogueira MD 12/17/16 Oxycodone-Acetaminophen (Percocet) 5-325 mg Tab 1 TAB PO Q6H Y for PAIN, #10 TAB 0 Refills Prov: Shannon Nogueira MD 12/17/16 Cephalexin (Keflex) 500 Mg Capsule 500 MG PO Q6H for Infection for 7 Days, #28 CAP 0 Refills Prov: Shannon Nogueira MD 12/17/16 Shannon Nogueira MD Dec 16, 2016 23:45
[2016-12-17 00:03] LABS: POTASSIUM 3.3 MEQ/L (3.5-5.1)
[2016-12-17 00:06] LABS: BICARBONATE 23.9 MEQ/L (21.0-32.0)
[2016-12-17 00:10] LABS: AUTOMATED NEUTROPHIL # 10.4 TH/MM3 (1.8-7.7); BASOPHIL # 0.1 TH/MM3 (0-0.2); BASOPHIL % 0.4 % (0.0-2.0); EOSINOPHIL # 0.3 TH/MM3 (0-0.4); EOSINOPHIL % 2.1 % (0.0-4.0); HEMATOCRIT 39.5 % (39.0-51.0); HEMO FLAGS DIFF FINAL; LYMPH % 17.3 % (9.0-44.0); LYMPHOCYTE # 2.5 TH/MM3 (1.0-4.8); MEAN CORPUSCULAR HEMOGLOBIN 30.2 PG (27.0-34.0); MEAN CORPUSCULAR HGB CONC 33.9 % (32.0-36.0); MONO % 6.9 % (0.0-8.0); NEUT % 73.3 % (16.0-70.0); PLATELET COUNT 308 TH/MM3 (150-450); RED BLOOD COUNT 4.43 MIL/MM3 (4.50-5.90); WHITE BLOOD COUNT 14.3 TH/MM3 (4.0-11.0)
[2016-12-17] MEDS ORDERED: HYDROmorphone HCL PF 1 MG/ML VIAL IV PUSH ONE (00:15)
[2016-12-17 01:27] LABS: BLOOD, URINE LARGE (NEG); GLUCOSE,URINE NEG (NEG); KETONE, URINE 15 mg/dL (NEG); NITRITE,URINE POS (NEG); PH, URINE 5.5 (5.0-8.5)
[2016-12-17 01:30] VITALS: BP 158/89; PULSE 74; RESP 18; O2SAT 99
[2016-12-17 01:40] LABS: URINE COLOR YELLOW (YELLW/STRAW)
[2016-12-17 01:41] LABS: BACTERIA, URINE FEW /hpf; COMMENT (UR) CULTURE INDICATED; CULTURE IF INDICATED CULTURE INDICATED; SQUAMOUS EPITHELIAL CELL URINE 0-5 /hpf (0-5)
[2016-12-17] MEDS ORDERED: TAMSULOSIN HCL 0.4 MG CAP PO ONE (02:30)
[2016-12-17] MEDS ORDERED: cefTRIAXone INJ 1,000 MG in SODIUM CHLORIDE 0.9% INJ 100 ML IV ONE (02:30)
[2016-12-17] MEDS ORDERED: HYDROmorphone HCL PF 0.5 MG/0.5 ML SYRINGE IV PUSH ONE (02:30)
[2016-12-17] MEDS ORDERED: SODIUM CHLOR 0.9% 1000 ML INJ 1,000 ML IV ONE (02:30)
[2016-12-17] MEDS ORDERED: TAMS5CAP PO (02:51)
[2016-12-17] MEDS ORDERED: ZOFR4TAB3 SL (02:51)
[2016-12-17] MEDS ORDERED: CEPH-460 PO (02:51)
[2016-12-17] MEDS ORDERED: PERC5TAB12 PO (02:51)
[2016-12-17 03:05] VITALS: BP 155/90
[2016-12-18] MEDS ORDERED: [UNRECOGNIZED DRUG - OTHER] (13:09)
[2016-12-18] MEDS ORDERED: MULTTAB67 PO (13:09)
[2016-12-18] MEDS ORDERED: LEVA500T20 PO (13:30)
[2016-12-18] MEDS ORDERED: OXYC1TAB36 PO (13:30)
== END 2016-12-17 03:18 | disposition home or self-care (01) ==
LOC: PHED 23:16
DX: N13.9 Obstructive and reflux uropathy, unspecified (principal); N20.0 Calculus of kidney; N39.0 Urinary tract infection, site not specified; B95.61 Methicillin susceptible Staphylococcus aureus infection as the cause of diseases classified elsewhere; F17.210 Nicotine dependence, cigarettes, uncomplicated; Z87.442 Personal history of urinary calculi
CPT/HCPCS: 80048; 81001; 85025; 86403; 87040; 87077; 87086; 87186; 87205; 96361; 96365; 96375; 96376; 99284; J0696; J1170; J1885; J2405; J7030

== ENCOUNTER 2016-12-18 12:47 | Emergency (ER) | payer SELFPAY ==
[~2016-12-18 12:47] MED LIST changes: +CEPH-460 PO; -PERC10TA27 PO; +PERC5TAB12 PO; -PROM25TA10 PO
[2016-12-18 12:50] VITALS: BP 145/70; PULSE 86; RESP 18; TEMP 98.9; O2SAT 98
[2016-12-18] MEDS ORDERED: [UNRECOGNIZED DRUG - OTHER] (13:09)
[2016-12-18] MEDS ORDERED: MULTTAB67 PO (13:09)
--- NOTE | 2016-12-18 13:25 | PD ---
HPI Chief Complaint: Abnormal Results Time Seen by Provider: 13:24 Travel History International Travel<30 days: No Contact w/Intl Traveler<30days: No Traveled to known affect area: No History of Present Illness HPI Patient evaluated Monday night and diagnosed with obstructive uropathy, kidney stones and urinary tract infection. Compliant with Flomax and oral Keflex. Reports little improvement in his flank pain. He is taking fluids well. Blood culture revealed anaerobic and aerobic gram-positive cocci in pairs and clusters. Patient denies any nausea vomiting diarrhea or fever. No new rash. Plans to call urology on Monday. He is passing urine. PFSH Past Medical History Blood Disorders: No Anxiety: Yes Depression: Yes (PTSD) Heart Rhythm Problems: No Cancer: No Cardiovascular Problems: No High Cholesterol: No Chemotherapy: No Chest Pain: No Congestive Heart Failure: No Diabetes: No Diminished Hearing: No Endocrine: No Gastrointestinal Disorders: No Glaucoma: No Genitourinary: Yes (LEFT NEPHROSTOMY) Hepatitis: No Hiatal Hernia: No Hypertension: No Immune Disorder: No Implanted Vascular Access Dvce: No Kidney Stones: Yes Musculoskeletal: Yes (Chronic back pain) Neurologic: No Psychiatric: Yes Reproductive: No Respiratory: No Immunizations Current: No Radiation Therapy: No Shingles: Yes Thyroid Disease: No Tetanus Vaccination: Unknown Influenza Vaccination: No Past Surgical History Abdominal Surgery: No Body Medical Devices: Left nephrostomy tube. Cardiac Surgery: No Ear Surgery: No Endocrine Surgery: No Eye Surgery: No Genitourinary Surgery: Yes (Lithotripsy, STENT PLACED AND REMOVED,nephrostomy tube placed x 2 Lt kidney) Gynecologic Surgery: No Joint Replacement: No Neurologic Surgery: No Oral Surgery: No Pacemaker: No Thoracic Surgery: No Other Surgery: Yes (LITHOTRIPSY MULTIPLE TIMES) Social History Alcohol Use: Yes (DAILY) Tobacco Use: Yes (1 PACK DAILY) Substance Use: No Allergies-Medications (Allergen,Severity, Reaction): Coded Allergies: No Known Allergies (Verified , 12/18/16) Reported Meds & Prescriptions Reported Meds & Active Scripts Active Oxycodone-Acetaminophen 10-325 mg Tab 1 Tab PO BID PRN Levaquin (Levofloxacin) 500 Mg Tablet 500 Mg PO DAILY 7 Days Flomax (Tamsulosin HCl) 0.4 Mg Cap 0.4 Mg PO HS 7 Days Percocet (Oxycodone-Acetaminophen) 5-325 mg Tab 1 Tab PO Q6H PRN Keflex (Cephalexin) 500 Mg Capsule 500 Mg PO Q6H 7 Days Ibuprofen 800 Mg Tab 800 Mg PO TID Zofran Odt (Ondansetron Odt) 4 Mg Tab 4 Mg SL Q8HR PRN Reported [[facility] Supplement] Multiple Vitamin 1 Tab 1 Tab PO DAILY Review of Systems General / Constitutional: No: Fever Eyes: No: Visual changes HENT: No: Headaches Cardiovascular: No: Chest Pain or Discomfort Respiratory: No: Shortness of Breath Gastrointestinal: No: Abdominal Pain Genitourinary: Positive: Flank Pain, No: Dysuria Musculoskeletal: No: Pain Skin: No Rash Neurologic: No: Weakness Psychiatric: No: Depression Endocrine: No: Polydipsia Hematologic/Lymphatic: No: Easy Bruising Physical Exam Narrative GENERAL: Well-nourished, well-developed patient. SKIN: Focused skin assessment warm/dry. HEAD: Normocephalic. EYES: No scleral icterus. No injection or drainage. NECK: Supple, trachea midline. No JVD or lymphadenopathy. CARDIOVASCULAR: Regular rate and rhythm without murmurs, gallops, or rubs. RESPIRATORY: Breath sounds equal bilaterally. No accessory muscle use. GASTROINTESTINAL: Abdomen soft, non-tender, nondistended. Left flank pain MUSCULOSKELETAL: No cyanosis, or edema. BACK: Nontender without obvious deformity. No CVA tenderness. Data Data Last Documented VS Vital Signs Date Time Temp Pulse Resp B/P (MAP) Pulse Ox O2 Delivery O2 Flow Rate FiO2 12/18/16 12:50 98.9 86 18 145/70 (95) 98 Orders Orders Urinalysis - C+S If Indicated (12/18/16 13:25) Urine Culture (12/18/16 13:20) Labs Laboratory Tests Test 12/18/16 13:20 Urine Collection Type CLEAN CATCH Urine Color YELLOW Urine Turbidity CLEAR Urine pH 5.5 Urine Specific [place] 1.028 Urine Protein TRACE mg/dL Urine Glucose (UA) NEG mg/dL Urine Ketones TRACE mg/dL Urine Occult Blood TRACE Urine Nitrite NEG Urine Bilirubin NEG Urine Leukocyte Esterase NEG Urine RBC 0-3 /hpf Urine WBC 25-49 /hpf Urine Squamous Epithelial Cells 0-5 /hpf Urine Mucus FEW /lpf Microscopic Urinalysis Comment CULTURE INDICATED Urine Collection Time 13:20 [facility] Medical Decision Making Medical Screen Exam Complete: Yes Emergency Medical Condition: Yes Differential Diagnosis UTI, sepsis, nephrolithiasis Narrative Course Assessment and plan discussed with patient at bedside. Diagnosis Primary Impression: Positive blood cultures Patient Instructions: General Instructions Additional Instructions: Encourage fluids and a cranberry supplement. Encouraged to follow-up with urology. Encouraged to return to the emergency room with any onset of new symptoms. Continue Flomax. Med/Other Pt SpecificInfo: Prescription(s) given Scripts Oxycodone-Acetaminophen (Oxycodone-Acetaminophen) 10-325 mg Tab 1 TAB PO BID Y for PAIN, #20 TAB 0 Refills Prov: Anatoliy Navarro MD 12/18/16 Levofloxacin (Levaquin) 500 Mg Tablet 500 MG PO DAILY for Infection for 7 Days, #7 TAB 0 Refills Prov: Anatoliy Navarro MD 12/18/16 Disposition: 01 DISCHARGE HOME Condition: Good Anatoliy Navarro MD Dec 18, 2016 13:25
[2016-12-18] MEDS ORDERED: OXYC1TAB36 PO (13:30)
[2016-12-18] MEDS ORDERED: LEVA500T20 PO (13:30)
[2016-12-18 13:37] LABS: GLUCOSE,URINE NEG (NEG); KETONE, URINE TRACE mg/dL (NEG); NITRITE,URINE NEG (NEG); PH, URINE 5.5 (5.0-8.5)
[2016-12-18 13:43] LABS: BLOOD, URINE TRACE (NEG)
[2016-12-18 13:46] LABS: METHOD OF COLLECTION CLEAN CATCH; URINE COLOR YELLOW (YELLW/STRAW)
[2016-12-18 13:47] LABS: MUCUS URINE FEW /lpf (OCC)
[2016-12-18 13:48] LABS: COMMENT (UR) CULTURE INDICATED; CULTURE IF INDICATED CULTURE INDICATED; RBC, URINE 0-3 /hpf (0-3); SQUAMOUS EPITHELIAL CELL URINE 0-5 /hpf (0-5)
== END 2016-12-18 14:16 | disposition home or self-care (01) ==
LOC: PHED 12:47
DX: R78.81 Bacteremia (principal)
CPT/HCPCS: 81001; 87086; 99284

== ENCOUNTER 2017-10-22 12:56 | Inpatient (IN) ==
[~2017-10-22 12:56] MED LIST changes: -CEPH-460 PO; -IBUP800T23 PO; +Lidocaine PF 1% Inj 5 ML Syringe INFILTRATN ONE; -PERC5TAB12 PO; +Succinylcholine Inj 100 MG/5 ML Syringe IV.PUSH ONE; -TAMS5CAP PO; -ZOFR4TAB3 SL
[2017-10-22] MEDS ORDERED: Morphine Sulfate Inj 8 MG/ML Vial IV.PUSH ONE (13:14)
[2017-10-22] MEDS ORDERED: Sod Chloride 0.9% Inj 1,000 ML IV.SIG ONE (13:14)
--- NOTE | 2017-10-22 13:22 | ED ---
HPI General Chief Complaint: Abdominal Pain Stated Complaint: Lower Abd Pain Source: patient Mode of arrival: ambulatory Limitations: no limitations History of Present Illness HPI narrative: Patient is a 46-year-old male with history of kidney stones, presents the emergency room with complaints of severe abdominal pain. Patient reports that he was diagnosed with a kidney stone on October 15, 2017 - he was found to have a 6mm calculus at the left UPJ with associated moderate left sided hydronephrosis with mild to moderate perinephric stranding. There were 3 additional nonobstructing left renal calculi ranging from 2-5mm in size. Patient reports that he was discharged home with a prescription for Keflex as well as oxycodone, he did follow-up with his primary care doctor, Dr. Ramsey who is helping to arrange a follow-up with his urologist, Dr. Cuellar who we seen in the past and has had lithotripsy performed by him in the past. Patient reports that around 1 AM last night, he began to have severe lower abdominal pain. Patient reports that pain is located to his right lower quadrant, reports the pain is constant in nature, nothing makes pain better or worse. Patient reports that he has been having nausea, vomiting and some diarrhea with his symptoms. Patient denies any fevers or chills, reports that his symptoms feel different than his normal kidney stone pain. As per patient's abdominal surgeries, patient has only had a lithotripsy in the past, his appendix is intact. MD complaint: abdominal pain Onset (ago): hour(s) Pain Consistency: constant Location: RLQ Severity: moderate Severity scale (1-10): 5 Radiation: none Migration to: no migration Relieving factors: nothing Exacerbating factors: nothing Associated symptoms: nausea, vomiting and diarrhea Related Data Home Medications Medication Instructions Recorded Confirmed tamsulosin [Flomax] 0.4 mg PO DAILY 10/15/17 10/22/17 magnesium citrate 1 bottle PO ONCE 10/22/17 10/22/17 Previous Rx's Medication Instructions Recorded cephalexin [Keflex] 500 mg PO TID 10 Days #30 cap 10/15/17 oxycodone-acetaminophen [Percocet] 1 tab PO Q4-6H PRN #20 tab 10/15/17 promethazine 25 mg PO Q6H PRN #20 tab 10/15/17 Allergies Allergy/AdvReac Type Severity Reaction Status Date / Time No Known Allergies Allergy Unverified 10/22/17 13:01 Review of Systems ROS: all other systems reviewed are negative [facility] Social History Social History Substance History: No History of Abuse Second Hand Smoke Exposure: No Smoking Status: Current every day smoker Tobacco Type: Cigarettes How Often Do You Have a Drink Containing Alcohol: 2 to 4 times a month Recent Travel in [facility] within the Last 8 Weeks: No Recent Out of Country Travel within the Last 8 Weeks: No Immunization History Tetanus Immunization: Unsure Hx Influenza Vaccine This Season: No Exam Narrative Exam Narrative: GENERAL: Moderate distress SKIN: Focused skin assessment warm/dry. HEAD: Atraumatic. Normocephalic. EYES: Pupils equal and round. No scleral icterus. No injection or drainage. ENT: No nasal bleeding or discharge. Mucous membranes pink and moist. NECK: Trachea midline. No JVD. CARDIOVASCULAR: Regular rate and rhythm. No murmur appreciated. RESPIRATORY: No accessory muscle use. Clear to auscultation. Breath sounds equal bilaterally. GASTROINTESTINAL: Abdomen soft, increased tenderness to RLQ with guarding on exam, nondistended. positive perintoeal signs. Hepatic and splenic margins not palpable. MUSCULOSKELETAL: No obvious deformities. No clubbing. No cyanosis. No edema. NEUROLOGICAL: Awake and alert. No obvious cranial nerve deficits. Motor grossly within normal limits. Normal speech. PSYCHIATRIC: Appropriate mood and affect; insight and judgment normal. Course Initial Documented Vital Signs Temperature 97.6 F 10/22/17 12:58 Pulse Rate 88 10/22/17 12:58 Respiratory Rate 18 10/22/17 12:58 Blood Pressure 133/69 10/22/17 12:58 Pulse Oximetry 97 10/22/17 12:58 Last Documented Vital Signs Temperature 97.6 F 10/22/17 12:58 Pulse Rate 76 10/22/17 15:16 Respiratory Rate 18 10/22/17 15:16 Blood Pressure 138/72 10/22/17 15:16 Pulse Oximetry 99 10/22/17 15:16 Medical Decision Making MDM Narrative Medical decision making narrative: During the course of the patients emergency department visit, the patients history, examination, and differential diagnosis were reviewed with the patient. The patient was placed on a travel registered nurse nicu with oximetry and frequent blood pressure monitoring. The patient had an IV access obtained and blood work sent for analysis. The patient was initially provided IVF as well as morphine for pain relief and zofran for nausea I did order a CT the abdomen pelvis with IV contrast as I am concerned for acute appendicitis, patient did have a recent CT of the pelvis which showed that he had a 6 mm stone in the left UPJ with associated hydronephrosis. I am concerned for acute appendicitis, patient is agreeable to further imaging studies. The patients laboratory studies were reviewed and remarkable for wbc 22.3, patient with peritoneal signs specifically pain to RLQ - I am concerned for appy - will order zosyn, call made to CT to expediate scan Patient with acute appendicitis, call made to Dr. Morse who accepts patient to service. Patient aware of acute appy and will keep NPO for OR tonight Medical Screen Exam Complete: Yes Emergency Medical Condition: Yes Lab Data Result diagrams: 10/22/17 13:15 10/22/17 13:15 Lab Results 10/22/17 10/22/17 10/22/17 Range/Units 13:15 13:15 13:15 CBC w Diff Slide review pending WBC 22.3 H (4.0-11.0) th/mm3 RBC 4.30 L (4.50-5.90) mil/mm3 Hgb 14.1 (13.0-17.0) gm/dL Hct 40.7 (39.0-51.0) % MCV 94.6 (80.0-100.0) fL MCH 32.7 (27.0-34.0) pg MCHC 34.6 (32.0-36.0) % RDW 12.7 (11.6-17.2) % Plt Count 371 (150-450) th/mm3 MPV 7.7 (7.0-11.0) fL Neut % (Auto) 77.6 H (16.0-70.0) % Lymph % (Auto) 13.0 (9.0-44.0) % [place] % (Auto) 6.8 (0.0-8.0) % Eos % (Auto) 0.6 (0.0-4.0) % Baso % (Auto) 2.0 (0.0-2.0) % Neut # (Auto) 17.4 H (1.8-7.7) th/mm3 Lymph # (Auto) 2.9 (1.0-4.8) th/mm3 [place] # (Auto) 1.5 H (0.0-0.9) th/mm3 Eos # (Auto) 0.1 (0.0-0.4) th/mm3 Baso # (Auto) 0.4 H (0.0-0.2) th/mm3 WBC Differential . Diff Scan Auto diff confirmed Differential Comment . Platelet Estimate Normal (Normal) Platelet Morphology Normal (Normal) RBC Morphology Normal (Normal) PT 10.3 (9.8-11.6) sec INR 1.0 Ratio APTT 28.1 (24.3-30.1) sec Sodium 141 (136-145) meq/L Potassium 3.9 (3.5-5.1) meq/L Chloride 107 (98-107) meq/L Carbon Dioxide 25.9 (21.0-32.0) meq/L Anion Gap 8 (5-15) meq/L BUN 13 (7-18) mg/dL Creatinine 1.20 (0.60-1.30) mg/dL Estimated GFR 66 L (>89) mL/min Random Glucose 97 (74-106) mg/dL Calcium 8.8 (8.5-10.1) mg/dL Total Bilirubin 0.8 (0.2-1.0) mg/dL AST 10 L (15-37) U/L ALT 18 (12-78) U/L Alkaline Phosphatase 59 (45-117) U/L Total Protein 7.4 (6.4-8.2) g/dL Albumin 3.3 L (3.4-5.0) g/dL Lipase 55 L (73-393) U/L Imaging Data Radiologist's impression: Abdomen/Pelvis CT 10/22/17 13:14 CONCLUSION: 1. Findings indicating acute appendicitis. No evidence of abscess or free air. 2. 2 proximal left ureteral calculi now seen at the ureteropelvic junction. Moderate severity left-sided hydronephrosis along with periureteral stranding on the left. The degree of hydronephrosis is similar to the prior study. 1 of the previous identified left sided renal calculi has migrated to the UPJ. Punctate upper pole calculus is again seen in the left kidney. Discharge Plan Discharge Disposition Patient Disposition: 30 Still Patient Discharge Condition Condition: Fair Discharge Details Diagnosis: Acute appendicitis Physicians Team ED Provider: Gisselle Gillespie Primary Care Provider: Ruben Ramsey V Attending Provider: Gomez Morse Status ED Status: Admitted Observation Patient
[2017-10-22 13:29] LABS: Baso # (Auto) 0.4 th/mm3 (0.0-0.2); Eos # (Auto) 0.1 th/mm3 (0.0-0.4); Eos % (Auto) 0.6 % (0.0-4.0); Hematocrit 40.7 % (39.0-51.0); Hemoglobin 14.1 gm/dL (13.0-17.0); Lymph # (Auto) 2.9 th/mm3 (1.0-4.8); Mean Corpuscular HGB Conc 34.6 % (32.0-36.0); Mean Corpuscular Hemoglobin 32.7 pg (27.0-34.0); Mean Corpuscular Volume 94.6 fL (80.0-100.0); Mean Platelet Volume 7.7 fL (7.0-11.0); Mono # (Auto) 1.5 th/mm3 (0.0-0.9); Mono % (Auto) 6.8 % (0.0-8.0); Neut # (Auto) 17.4 th/mm3 (1.8-7.7); Neut % (Auto) 77.6 % (16.0-70.0); Platelet Count 371 th/mm3 (150-450); Red Cell Distribution Width 12.7 % (11.6-17.2); White Blood Count 22.3 th/mm3 (4.0-11.0)
[2017-10-22] MEDS ORDERED: Morphine Inj 4 MG/ML Vial IV.PUSH ONE (13:30)
[2017-10-22 13:35] LABS: Chloride 107 meq/L (98-107); Potassium 3.9 meq/L (3.5-5.1); Sodium 141 meq/L (136-145)
[2017-10-22 13:39] LABS: Calcium 8.8 mg/dL (8.5-10.1)
[2017-10-22 13:40] LABS: Albumin 3.3 g/dL (3.4-5.0); Anion Gap 8 meq/L (5-15); Blood Urea Nitrogen 13 mg/dL (7-18); Carbon Dioxide 25.9 meq/L (21.0-32.0); Glucose,Random 97 mg/dL (74-106); Lipase 55 U/L (73-393)
[2017-10-22 13:43] LABS: Alanine Aminotransferase 18 U/L (12-78); Aspartate Aminotransferase 10 U/L (15-37); Glomerular Filtration Rate 66 mL/min (>89)
[2017-10-22 13:45] LABS: Activated Partial Thrombo Time 28.1 sec (24.3-30.1); Prothrombin Time 10.3 sec (9.8-11.6); Total Protein 7.4 g/dL (6.4-8.2)
[2017-10-22 13:46] LABS: Alkaline Phosphatase 59 U/L (45-117)
[2017-10-22] MEDS ORDERED: Piperacil/Tazo 3.375 GM Premix 50 ML IV.SIG ONE (13:52)
[2017-10-22 13:54] LABS: RBC Morphology Normal (Normal)
[2017-10-22] MEDS ORDERED: Morphine Inj 4 MG, Morphine Inj 2 MG IV.PUSH ONE ×4 (13:54→14:59)
[2017-10-22 13:55] LABS: Platelet Estimate Normal (Normal); Platelet Morphology Normal (Normal)
--- NOTE | 2017-10-22 14:32 | CT ---
EXAM DATE: 10/22/2017 2:20 PM EDT AGE/SEX: 46 years / Male INDICATIONS: Right lower quadrant pain. CLINICAL DATA: This is the patient's initial encounter. Patient reports that signs and symptoms have been present for 1 day and indicates a pain score of 6/10. MEDICAL/SURGICAL HISTORY: Renal calculi. Lithotripsy. Tonsillectomy. Renal stent. ORAL CONTRAST: No oral contrast ingested. RADIATION DOSE: 15.88 CTDI (mGy) COMPARISON: [facility], CT ABDOMEN & PELVIS W/O CONTRAST, 10/15/2017. . TECHNIQUE: Multiple contiguous axial images were obtained through the abdomen and pelvis following b olus infusion of 95 ml Omnipaque 350 (iohexol) nonionic water-soluble contrast as a single exam dos e. No oral contrast ingested. Using automated exposure control and adjustment of the mA and/or kV ac cording to patient size, radiation dose was kept as low as reasonably achievable to obtain optimal di agnostic quality images. DICOM format image data is available electronically for review and comparis on. FINDINGS: Lower Lungs: The visualized lower lungs are clear. Liver: The liver has a homogeneous density without space-occupying lesion. There is no dilation of th e biliary tree. Spleen: Homogeneous density without enlargement. Pancreas: Unremarkable without mass or calcification. Kidneys: Moderate severity left-sided hydronephrosis. Mildly delayed nephrogram on the left when com pared to the right. 2 proximal ureteral calculi are identified on the left at the ureteropelvic junct ion. The largest calculus measures 5 mm the smaller calculus measures 3 mm. Hounsfield unit measureme nts are less than 1000. Right kidney is within normal limits. The previously seen calculi within the left kidney are not seen on the current study. Punctate calculus in the upper pole of the left kidney is again seen. Right kidney is within normal limits. Adrenal Glands: Unremarkable. Aorta: Diffuse aortic calcification. Diameter within normal limits. Bowel/Mesentery: Dilated fluid-filled appendix with thickened enhancing wall. Diameter measures 14 m m. Prominent surrounding stranding inflammatory change in the adjacent fat. Findings indicate acute a ppendicitis. No evidence of abscess or free air. Abdominal Wall: Intact. Retroperitoneum: No evidence of adenopathy in the retrocrural, para-aortic, or deep pelvic regions. Bladder: Contours are smooth. Reproductive Organs: No abnormal masses or calcifications seen. Inguinal: The inguinal region is unremarkable without evidence of adenopathy. Bony Structures: Unremarkable. CONCLUSION: 1. Findings indicating acute appendicitis. No evidence of abscess or free air. 2. 2 proximal left ureteral calculi now seen at the ureteropelvic junction. Moderate severity left-s ided hydronephrosis along with periureteral stranding on the left. The degree of hydronephrosis is si milar to the prior study. 1 of the previous identified left sided renal calculi has migrated to the U PJ. Punctate upper pole calculus is again seen in the left kidney. Electronically signed by: Brigido Ruiz MD 10/22/2017 2:30 PM EDT
[2017-10-22 15:32] LABS: Bilirubin,Urine Negative (Negative); Clarity,Urine Cloudy (Clear); Color,Urine Yellow (Yellw/Straw); Glucose,Urine (UA) Negative (Negative); Leukocyte Esterase,Urine Large (Negative); Nitrite,Urine Positive (Negative); PH,Urine 7.5 (5.0-8.5); Specific Gravity,Urine Less/Equal 1.005 (1.002-1.035); Urobilinogen,Urine 0.2 mg/dL (Less than 2)
[2017-10-22 15:48] LABS: Collection Time,Urine 1500 hours
[2017-10-22 15:49] LABS: Amorphous Sediment,Urine Few /hpf; Squamous Epithelial Cell,Urine 0-5 /hpf (0-5); WBC,Urine 51-189 /hpf (0-5)
[2017-10-22 15:50] LABS: Mucus,Urine Few /lpf (Occasional)
[2017-10-22] MEDS ORDERED: Sugammadex Inj 200 MG/2 ML Vial IV.PUSH ONE (15:56)
[2017-10-22] MEDS ORDERED: Bupivacaine/Epinephrine PF Inj 0.5% 30 ML Vial ONE (16:11)
[2017-10-22] MEDS ORDERED: fentaNYL Citrate Inj 250 MCG/5 ML Ampul ONE (16:12)
[2017-10-22] MEDS ORDERED: Bupivacaine/Epinephrine Inj 0.25% 50 ML Vial ONE (16:14)
[2017-10-22] MEDS ORDERED: Sodium Chlor 0.9% Inj 500 ML IV.SIG SCH (17:00)
[2017-10-22] MEDS ORDERED: Chlorhexidine Gluconate 2% 1 Pack (2 Cloths) TOPICAL SCH (17:00)
--- NOTE | 2017-10-22 17:55 | MH ---
cc: Gomez Morse MD DATE OF ADMISSION: 10/22/2017 CHIEF COMPLAINT: Acute appendicitis. HISTORY OF PRESENT ILLNESS: The patient is a 46-year-old male who presented to [facility] with less than 12 hours of severe abdominal pain throughout his lower abdomen. The patient was recently diagnosed with a 6 mm kidney stone and was placed on antibiotics and was to follow up with urology, Dr. Gonzalez. The patient stated this pain was much worse and in a different location. He underwent a CT scan in the emergency department, which showed a very large dilated appendix with surrounding inflammatory changes consistent with early acute appendicitis. General surgery was asked to see the patient. The patient states the pain is 5 on a scale of 1-10 without radiation and is relieved with pain medication. REVIEW OF SYSTEMS: A 12-point review of systems is conducted with the patient and is negative except for the pertinent positives mentioned above in the history of present illness. PAST MEDICAL HISTORY: Kidney stones. PAST SURGICAL HISTORY: No previous abdominal surgeries. ALLERGIES: NO KNOWN DRUG ALLERGIES. MEDICATIONS: 1. Keflex. 2. Percocet. 3. Phenergan. SOCIAL HISTORY: Current smoker. Occasionally uses alcohol. Denies illicit drug use. Works as a nurse. FAMILY HISTORY: Reviewed and noncontributory to this process. PHYSICAL EXAMINATION: VITAL SIGNS: Temperature 97.6 degrees, pulse 88, blood pressure 133/69, O2 saturation 97% on room air. GENERAL: The patient is a well-developed, well-nourished male in no acute distress. He does not appear acute or chronically ill. HEENT: Head is normocephalic, atraumatic. Pupils are round, reactive and accommodating to light. Sclerae are anicteric. Oral cavity is clear. Airway is patent. NECK: Supple with no JVD. LUNGS: Breath sounds present bilaterally. Nonlabored breathing pattern. HEART: Regular rate and rhythm. No murmurs. ABDOMEN: Soft, diffusely tender without peritonitis or rebound tenderness. He has focal tenderness and focal peritonitis in the right lower quadrant. No surgical scars. No hernias. Hypoactive bowel sounds. EXTREMITIES: No clubbing, cyanosis or edema. BACK: No CVA tenderness. NEUROLOGIC: The patient is alert and oriented x3. Mood, judgment and insight are intact and within normal limits. Cranial nerves 2-12 are grossly intact. Nonfocal peripheral exam. LABORATORY VALUES: Leukocytosis of 22.3, hemoglobin 14.1. IMAGING: CT scan shows acute appendicitis. ASSESSMENT AND PLAN: The patient is a 46-year-old male with acute appendicitis. He also had recent treatment for nephrolithiasis. I discussed with the patient treatment options including laparoscopic appendectomy, which I did recommend to him, and he is in agreement with the procedure. I discussed the procedure in detail and expected outcomes and he is in agreement. We will proceed to the operating room urgently for laparoscopic appendectomy. MD FREDI Smith/christopher , 05:06 PM , 05:14 PM
[2017-10-22] MEDS ORDERED: Promethazine 25 MG Supp RECTAL PRN (18:23)
[2017-10-22] MEDS ORDERED: Post-op Orders (for Pharmacy) OTHER ONE (18:23)
[2017-10-22] MEDS ORDERED: Sod Chloride 0.9% Inj 1,000 ML IV.CONT SCH (18:30)
--- NOTE | 2017-10-22 19:38 | MP ---
cc: Gomez Morse MD DATE OF OPERATION: 10/22/2017 PREOPERATIVE DIAGNOSIS: Acute appendicitis. POSTOPERATIVE DIAGNOSIS: Acute suppurative appendicitis. PROCEDURE PERFORMED: Laparoscopic appendectomy. ATTENDING SURGEON: Gomez Morse MD WOOD SCRAP HANDLER: Nessa Ashley, medical student 3. ANESTHESIA: General and local anesthetic. ESTIMATED BLOOD LOSS: 25 mL. COMPLICATIONS: None. FINDINGS: A dilated, inflamed suppurative appendicitis in the right lower quadrant. No other intra-abdominal pathology. INDICATIONS FOR PROCEDURE: The patient is a 46-year-old male who presented to [facility] with the sudden onset of right lower quadrant pain that was also radiating diffusely across his abdomen for less than 1 day. The patient underwent a workup including a CT scan that showed a dilated, thickened appendix with a large amount of inflammation around the appendix. General surgery was consulted and the patient was recommended to go to the operating room for a laparoscopic appendectomy. The risks, benefits and alternatives were discussed with the patient prior to the procedure and he agreed to undergo the procedure. DESCRIPTION OF PROCEDURE: The patient was taken to the operating room and placed in the supine position and placed under general endotracheal anesthesia. The patient's abdomen was shaved, prepped and draped in a sterile fashion. A timeout was performed. The abdomen was entered through a Nasra technique with a curvilinear incision below the umbilicus. Directly under the fascia with an 11 blade scalpel and hemostats, we then placed a 10 mm balloon trocar into the abdomen under direct visualization. We insufflated the abdomen and surveyed the abdomen with a 5 mm 30-degree camera and there was no evidence of any complication from our entry and there was no intra-abdominal pathology with the exception of some inflammation of some fat in the right lower quadrant. We then placed 2 additional ports, which were 5 mm ports, in the left lower quadrant under direct visualization of the laparoscope. Local anesthetic was used at all port sites. We were then able to relocate some omentum medially and traced the tinea of the colon down to the base of the appendix. The appendix was inflamed, dilated, thickened and was suppurative. There was no gangrene or gangrenous changes. There was no evidence of rupture or abscess. We were able to take some retroperitoneal adhesions down from the right pelvic side wall and grasp the appendix with the [place] retractor. We made a window at the base of the appendix with a [place] dissector. We used a 1 white load on the [place] TIGIST 45 stapler to divide the base of the appendix to splay it into the cecum. We used 2 white loads to divide the mesentery of the appendix. We had no bleeding. We had a staple line that was intact and there was no evidence of leak. The appendix was removed through the abdomen with an EndoCatch bag through the Nasra 10 mm site. We used a small amount of suction to suction a few blood clots from the right lower quadrant. Again, there was no evidence of any bleeding. We at this point in time turned our attention towards completion and relocated the omentum back over the right lower quadrant. We removed all the ports under visualization of the laparoscope and expressed pneumoperitoneum. We then closed the Nasra site with a 0 Vicryl suture. We closed all skin sites with 4-0 Monocryl and Dermabond. The patient was discontinued from anesthesia and taken to the PACU in stable condition. The patient tolerated the procedure well. No apparent complications. All counts were correct. I was present and scrubbed for the entire procedure. MD FREDI Smith/christopher , 06:36 PM , 06:44 PM
[2017-10-22] MEDS: Piperacil/Tazo 3.375 GM Premix 50 ML IV.SIG SCH (20:53)
[2017-10-23] MEDS ORDERED: Sod Chloride 0.9% Inj 1,000 ML IV.SIG ONE (01:15)
[2017-10-23] MEDS: Morphine Sulfate Inj 2 MG/ML Vial IM PRN ×2 (02:08→04:42)
[2017-10-23 02:46] LABS: Hemoglobin 9.6 gm/dL (13.0-17.0); Mean Corpuscular HGB Conc 34.2 % (32.0-36.0); Mean Corpuscular Hemoglobin 32.4 pg (27.0-34.0); Mean Corpuscular Volume 94.8 fL (80.0-100.0); Mean Platelet Volume 7.7 fL (7.0-11.0); Platelet Count 317 th/mm3 (150-450); Red Blood Count 2.96 mil/mm3 (4.50-5.90); Red Cell Distribution Width 12.4 % (11.6-17.2); White Blood Count 23.1 th/mm3 (4.0-11.0)
[2017-10-23] MEDS: Piperacil/Tazo 3.375 GM Premix 50 ML IV.SIG SCH (02:51)
[2017-10-23 02:54] LABS: Potassium 4.4 meq/L (3.5-5.1)
[2017-10-23 03:02] LABS: Calcium 7.9 mg/dL (8.5-10.1); Carbon Dioxide 23.9 meq/L (21.0-32.0)
[2017-10-23] MEDS ORDERED: Vancomycin Consult Pharmacy OTHER PRN (04:34)
[2017-10-23] MEDS ORDERED: Vancomycin Inj 1,800 MG in Sodium Chlor 0.9% Inj 500 ML IV.SIG SCH (05:00)
[2017-10-23] MEDS ORDERED: fentaNYL Citrate Inj 100 MCG/2 ML Ampul IV.PUSH ONE (05:55)
[2017-10-23] MEDS ORDERED: Sodium Chlor 0.9% Inj 250 ML IV.SIG SCH ×2 (06:00→23:00)
--- NOTE | 2017-10-23 06:40 | P.PNCC ---
Critical Care Event Note Code activated: No Narrative: Covering [facility] overnight from [facility]. Notified 2 am that patient transferring to unit with hypotension and concern for sepsis. Ordered 1 L bolus , stat labs. Hypotension responded to ivf. Noted Hgb 9.6 from 14.1 preop. Recheck confirmed 9.1. Additional 1 L bolus ordered. Ordered type and cross, notified Dr. Morse, ordered CT abd/pelvis. Patient went to CT and complaining of severe abdominal pain when laying flat, concerning for hemoperitoneum. Patient was refusing CT unless he was "knocked out". Ordered sedation. Transfuse 2 units PRBC stat. NPO. Notified oncoming strike warfare/missile systems officer of patient condition. Patient also has obstructing kidney stone with UTI. Broadened abx coverage including meropenem (prior abx exposure) and vancomycin. Urology consulted. Multiple conversations with PO SAFETY INVESTIGATOR; greatly appreciate Debora's assistance with patient care. Critical care time: less than 30 mins (Not billing for this time, not able to leave [facility] during night coordinator.)
--- NOTE | 2017-10-23 06:44 | CT ---
EXAM DATE: 10/23/2017 6:33 AM EDT AGE/SEX: 46 years / Male INDICATIONS: Acute appendicitis. CLINICAL DATA: This is the patient's initial encounter. Patient reports that signs and symptoms have been present for 1 day and indicates a pain score of 10/10. MEDICAL/SURGICAL HISTORY: . Acute pyelonephritis. Kidney stones. . Lithotripsy. Renal stent. T onsillectomy. ORAL CONTRAST: No oral contrast ingested. RADIATION DOSE: 19.62 CTDI (mGy) COMPARISON: [facility], CT ABDOMEN & PELVIS W CONTRAST, 10/22/2017. . TECHNIQUE: Multiple contiguous axial images were obtained through the abdomen and pelvis following b olus infusion of 80 ml Omnipaque 350 (iohexol) nonionic water-soluble contrast as a single exam dos e. No oral contrast ingested. Using automated exposure control and adjustment of the mA and/or kV ac cording to patient size, radiation dose was kept as low as reasonably achievable to obtain optimal di agnostic quality images. DICOM format image data is available electronically for review and comparis on. FINDINGS: The patient is status post laparoscopic appendectomy. Free air is present, not unexpected. A moderate amount of intraperitoneal hemorrhage is also present. I don't see any organized or drainable fluid a t this time. Most of intraperitoneal blood is around the spleen and dependently in the pelvic cavity. In the left lower quadrant anterior abdominal wall is a subacute appearing hematoma that measures ap proximately 4.6 x 12.2 x 15.5 cm. No active bleeding demonstrated. No acute solid organ abnormality demonstrated. Stone fragments in the upper left ureter are again noted, one measuring about 4 mm and the other abou t 6 mm. Moderate hydronephrosis persists. The left kidney is still excreting contrast from the CT yes terday. CONCLUSION: 1. Interim laparoscopic appendectomy. Moderate amount of intraperitoneal blood. Also a hematoma in t he left lower quadrant abdominal wall. No definite active bleeding seen. 2. Left hydronephrosis related to proximal ureteral stones not significantly changed. There is delay ed nephrogram and excretion of contrast of the left kidney. Electronically signed by: Sunil Mahajan MD 10/23/2017 6:43 AM EDT
--- NOTE | 2017-10-23 06:57 | P.CONCC ---
History of Present Illness Service: Critical care Consult date: 10/23/17 Requesting Physician: Gomez Morse Reason for Consult: Syncope, post op anemia Primary Care Provider: Ruben Ramsey MD Family Provider: No Primary Care Physician Chief Complaint: Syncope, s/p appendectomy History of Present Illness: The patient is a 46-year-old male with history of renal stones who presented yesterday to [place] ED with approximately 12 hour history of severe abdominal pain. He was recently diagnosed with a 6 mm kidney stone and was to see urologist Dr. Gonzalez. He described new pain is different and at a different location. CT scan showed a large dilated appendix with surrounding inflammatory changes consistent with early acute appendicitis. Patient was started on broad-spectrum antibiotics, and Dr. Morse was consulted for acute appendicitis. Patient underwent laparoscopic appendectomy and intraoperative findings were consistent with acute suppurative appendicitis. Postop initially was stable but later evening, when the patient was trying to get out of bed he felt very dizzy and passed out. He was found on the floor by the RN, his blood pressure was 90/50. He was emergently moved to the ICU and critical care medicine was consulted. Dr. Carlin gave 1L of LR bolus and stat hemoglobin was 9.6, admission Hb was 14.1, lactic acid 2.1 WBC count 23,000. Antibiotics were broadened to meropenem and vancomycin. Stat CT abdomen pelvis was ordered I evaluated the patient in the post [place] ICU after the CT scan was done. Patient is in acute distress due to severe abdominal pain. He does not permit detailed examination due to severe tenderness diffusely. CT shows moderate hemoperitoneum, and left lower quadrant abdominal wall hematoma, and left hydronephrosis with obstructing ureteral stone. 2 units of PRBC have been ordered stat coags are pending. I have discussed with Dr. Morse who is planning for OR for washout today Review of Systems All other systems reviewed negative except as stated in HPI PMFSH - History History Provided By: Patient - Medical History Medical History: Medical History (Last Reviewed 10/23/17 @ 07:19 by Kiersten Barber MD) Kidney stones - Surgical History Surgical History: Surgical History (Last Reviewed 10/23/17 @ 07:19 by Kiersten Barber MD) History of lithotripsy History of renal stent Hx of tonsillectomy - Tobacco History Second Hand Smoke Exposure: Yes Tobacco Use In Past 30 Days: Yes Smoking Status: Current every day smoker Tobacco Type: Cigarettes - Alcohol History How Often Do You Have a Drink Containing Alcohol: 2 to 3 times a week - Substance Use History Substance History: No History of Abuse - Travel History Recent Travel in the [place] Within the Last 8 Weeks: No Recent Travel Out of the Country Within the Last 8 Weeks: No - Immunization History Tetanus Immunization: <5 Years Hx Influenza Vaccine This Season: No Medications and Allergies Active Medications: Active Medications Hydrocodone Bitart/Acetaminophen ([place] 5/325) 2 tab PO Q4H PRN PRN Reason: PAIN SCALE 6 TO 10 Last Admin: 10/23/17 01:22 Dose: 2 tab Chlorhexidine Gluconate (Chlorhexidine 2% Cloth) 3 pack TOPICAL [facility] Stop: 10/25/17 17:01 Chlorhexidine Gluconate (Chlorhexidine 2% Cloth) 3 pack TOPICAL DAILY@0400 [facility] Stop: 10/29/17 03:59 Chlorhexidine Gluconate (Chlorhexidine 2% Cloth) 3 pack TOPICAL DAILY@0400 PRN PRN Reason: Extra cloth needed Stop: 10/29/17 03:59 Sodium Chloride (Ns Inj) 500 mls @ 30 mls/hr IV.SIG .Q10H [facility] Stop: 10/25/17 17:01 Piperacillin/Tazobactam/Dextrose (Zosyn 3.375 Gm Premix) 50 mls @ 100 mls/hr IV.SIG Q6H [facility] Last Admin: 10/23/17 02:51 Dose: 100 mls/hr Lactated Ringer's (Lr 1000 Ml Inj) 1,000 mls @ 125 mls/hr IV.CONT .Q8H [facility] Last Admin: 10/23/17 02:47 Dose: 125 mls/hr Meropenem 1,000 mg/ Sodium (Chloride) 100 mls @ 200 mls/hr IV.SIG Q8HR [facility] Last Admin: 10/23/17 06:39 Dose: 200 mls/hr Vancomycin HCl 1,800 mg/ (Sodium Chloride) 536 mls @ 536 mls/hr IV.SIG Q12H [facility] Last Admin: 10/23/17 05:16 Dose: 536 mls/hr Sodium Chloride (Ns Inj) 250 mls @ 15 mls/hr IV.SIG ONCE [facility] Stop: 10/23/17 22:39 Ketorolac Tromethamine (Toradol Inj) 30 mg IM Q6H PRN PRN Reason: PAIN 6-10;IF UNABLE TO TAKE PO Stop: 10/27/17 18:28 Miscellaneous Information ([facility] Ordered Lab Info) 0 each OTHER ONCE ONE Stop: 10/24/17 16:46 Morphine Sulfate (Morphine Inj) 2 mg IM Q2H PRN PRN Reason: BREAKTHROUGH PAIN Last Admin: 10/23/17 04:42 Dose: 2 mg Ondansetron HCl (Zofran Odt) 4 mg PO Q6H PRN PRN Reason: NAUSEA OR VOMITING Ondansetron HCl (Zofran Inj) 4 mg IV.PUSH Q6H PRN PRN Reason: NAUSEA OR VOMITING Pharmacy Profile Note (Vancomycin Consult Pharmacy) 1 each OTHER UNSCH PRN PRN Reason: Pharmacy to dose Povidone Iodine (Betadine 5% Antisepsis Kit) 1 applicatio EACH [facility] Stop: 10/25/17 17:01 Promethazine HCl (Phenergan) 25 mg PO Q6H PRN PRN Reason: NAUSEA OR VOMITING Promethazine HCl (Phenergan Supp) 25 mg RECTAL Q6H PRN PRN Reason: NAUSEA OR VOMITING Sodium Chloride (Ns Flush) 2 ml IV.FLUSH PRN PRN PRN Reason: FLUSH AFTER USING IV ACCESS Last Admin: 10/22/17 15:13 Dose: 2 ml Allergies Allergy/AdvReac Type Severity Reaction Status Date / Time No Known Allergies Allergy Unverified 10/22/17 13:01 Home Medications Medication Instructions Recorded Confirmed Type tamsulosin [Flomax] 0.4 mg PO DAILY 10/15/17 10/22/17 History magnesium citrate 1 bottle PO ONCE 10/22/17 10/22/17 History Physical Exam Vital signs: Vital Signs 10/22/17 12:58 10/22/17 13:34 10/22/17 15:16 Temperature 97.6 F Pulse Rate 88 84 76 Respiratory Rate 18 18 18 Blood Pressure 133/69 133/70 138/72 Pulse Oximetry 97 98 99 10/22/17 18:00 10/22/17 18:20 10/22/17 18:21 Temperature 99.2 F Pulse Rate 90 Respiratory Rate 18 18 16 Blood Pressure 176/89 H Pulse Oximetry 10/22/17 18:29 10/22/17 18:35 10/22/17 18:54 Temperature Pulse Rate 82 91 H 80 Respiratory Rate 18 18 Blood Pressure 159/91 H 163/84 H Pulse Oximetry 96 10/22/17 19:45 10/22/17 22:00 10/23/17 00:00 Temperature 97.6 F 97.7 F Pulse Rate 80 87 65 Respiratory Rate 18 20 Blood Pressure 184/74 H 90/50 L Pulse Oximetry 97 93 L 10/23/17 01:25 10/23/17 02:26 10/23/17 03:00 Temperature 98 F Pulse Rate 88 78 Respiratory Rate 18 14 Blood Pressure 104/64 132/66 117/69 Pulse Oximetry 93 L 93 L 10/23/17 03:39 10/23/17 04:44 10/23/17 05:08 Temperature 97.9 F Pulse Rate 78 80 82 Respiratory Rate 17 13 19 Blood Pressure 127/80 131/73 140/76 Pulse Oximetry Intake & Output 10/22/17 10/22/17 10/23/17 06:59 18:59 06:59 Intake Total 2150 / 2150 2550 / 2550 Output Total 325 / 325 Balance 1825 / 1825 2550 / 2550 Weight 95 kg 95.6 kg Intake: IV 2050 / 2050 1850 / 1850 LR 1000 mL Inj 1,000 ML @ 0 mls 1000 / 1000 /hr .ROUTE .STK-MED ONE Rx#: [id number] Ofirmev Inj 1,000 mg In 100 ml 100 / 100 @ 0 mls/hr IV.SIG .STK-MED ONE Rx#:[id number] LR 1000 mL Inj 1,000 ML @ 30 1000 / 1000 mls/hr IV.SIG .Q24H [facility] Rx#: [id number] Zosyn 3.375 GM Premix 50 ML @ 50 / 50 50 / 50 100 mls/hr IV.SIG Q6H [facility] Rx#: [id number] NS Inj 1,000 ML @ 999 mls/hr IV 1000 / 1000 700 / 700 .SIG .Q1H1M ONE Rx#:[id number] Anesthesia Amount 100 / 100 700 / 700 Output: Urine 300 / 300 Estimated Blood Loss 25 / 25 Other: # Voids 1 Weight On Admission 43.363 kg Narrative: GENERAL: Patient is in severe distress due to abdominal pain SKIN: warm/dry. HEAD: Atraumatic. Normocephalic. EYES: Pupils equal and round. Conjunctiva pale ENT: Oral cavity is dry airway patent NECK: Trachea midline. No JVD. CARDIOVASCULAR: Tachycardic rate now hypotensive. No murmur appreciated. RESPIRATORY: No accessory muscle use. Clear to auscultation. Breath sounds equal bilaterally. GASTROINTESTINAL: Abdominal exam is severely limited as the patient has extreme pain and he does not permit exam. Even to light touch he is screaming in pain. Left flank region has a hematoma surrounding the trocar site. Other 2 trocar sites C/D/I MUSCULOSKELETAL: No obvious deformities. No clubbing. No cyanosis. No edema. NEUROLOGICAL: Awake and alert. Motor grossly within normal limits. Normal speech. Septic Shock Reassessment Septic shock perfusion: reassessment completed Assessment and Plan - Assessment and Plan Plan: ASSESSMENT: Moderate hemoperitoneum, left lower quadrant abdominal wall hematoma Anemia requiring transfusion Hypotension Severe sepsis Acute suppurative appendicitis status post laparoscopic appendectomy UTI Left hydronephrosis from obstructing left ureteral stone Lactic acidosis PLAN: NEURO: -Pain controlled with Dilaudid 1 mg every 4 hours as needed -Use Dilaudid EARTH OBSERVATIONS CHIEF SCIENTIST if needed RESP: -DuoNeb every 6 HOUR as needed -Aggressive pulmonary toilet CV: -Normal saline IV fluid 1L bolus, continue LR at 1 25 mL/h -Trend lactic acid GI/HEME: -N.p.o., IV Protonix 40 mg every 12 -Moderate hemoperitoneum on CT, transfuse 2 units PRBC stat -Discussed with Dr. Morse, plan for OR for wash out today : -Monitor renal function closely. Ac catheter. -Urology consulted for acute hydronephrosis on the left side, left ureteral obstructing stone -Broad-spectrum antibiotics as below ID: -Antibiotics with meropenem and vancomycin -Blood urine cultures -Urology/invasive radiology intervention needed for hydronephrosis ENDO: -Electrolyte replacement per protocol PROPH: -Bilateral lower extremity SCDs. IV Protonix -Chemical DVT prophylaxis is contraindicated due to hemoperitoneum LINES: -Utilize peripheral IVs, central line if needed CC time 45 min At this time. Extremities critically ill with postop bleeding, moderate hemoperitoneum severe sepsis and signs of severe peritonitis Code Status: Full
[2017-10-23 07:09] LABS: Activated Partial Thrombo Time 23.7 sec (24.3-30.1); INR 1.1 Ratio; Prothrombin Time 10.8 sec (9.8-11.6)
[2017-10-23] MEDS ORDERED: HYDROmorphone PF Inj 2 MG/ML Vial IV.PUSH PRN ×2 (07:30→11:45)
[2017-10-23] MEDS ORDERED: Sod Chloride 0.9% Inj 1,000 ML IV.SIG SCH (07:30)
[2017-10-23] MEDS ORDERED: Sodium Phosphate Inj 30 MMOL in Sodium Chlor 0.9% Inj 250 ML IV.SIG PRN (07:33)
[2017-10-23] MEDS ORDERED: Magnesium Oxide 400 MG Tablet PO PRN (07:33)
[2017-10-23] MEDS ORDERED: Potassium Chlor 40 mEq Premix 40 MEQ/100 ML PIGGYBACK IV.SIG PRN ×2 (07:33)
[2017-10-23] MEDS ORDERED: Potassium Chlor 20 mEq Premix 20 MEQ/100 ML PIGGYBACK IV.SIG PRN ×2 (07:33)
[2017-10-23] MEDS ORDERED: Potassium Phosphate 500 MG Soluble Tablet PO PRN ×2 (07:33)
[2017-10-23] MEDS ORDERED: Magnesium Sulfate Inj 4 GM in Sodium Chlor 0.9% Inj 92 ML IV.SIG PRN (07:33)
[2017-10-23] MEDS ORDERED: Magnesium Sulfate Inj 2 GM in Sodium Chlor 0.9% Inj 96 ML IV.SIG PRN (07:33)
[2017-10-23] MEDS ORDERED: Potassium Chloride 25 MEQ Effervescent Tablet PO PRN (07:33)
[2017-10-23] MEDS ORDERED: Potassium Phosphate Inj 30 MMOL in Sodium Chlor 0.9% Inj 250 ML IV.SIG PRN (07:33)
[2017-10-23] MEDS ORDERED: Morphine Sulfate Inj 2 MG/ML Vial IV.PUSH ONE (08:00)
--- NOTE | 2017-10-23 11:06 | P.CONURO ---
History of Present Illness Service: Consult date: 10/23/17 Requesting Physician: Carmel Carlin Reason for Consult: Obstructing left ureteral calculi Primary Care Provider: Ruben Ramsey MD Family Provider: No Primary Care Physician Chief Complaint: Syncope, s/p appendectomy History of Present Illness: 46-year-old gentleman with history nephrolithiasis who presented to the emergency room with acute onset right lower quadrant pain. Patient reports that he had been experiencing left flank pain for the previous week however the right lower quadrant pain was different and concerning for him. Workup included a CT scan of the abdomen and pelvis that was consistent with appendicitis along with left hydronephrosis related to obstructing left proximal ureteral calculi measuring 6 and 4 mm respectively. Urinalysis demonstrated red cells, white cells and nitrate positive. Patient was brought to surgery and underwent an emergent appendectomy. Postoperatively the patient developed worsening abdominal pain and a repeat CT scan study was performed with similar urologic findings as well as evidence of intra-abdominal bleeding. Patient is scheduled to undergo an abdominal lavage procedure later today and a urology consult was placed regarding further recommendations of the obstructing left proximal ureteral calculi. At the time of consultation, the patient was lying quietly in bed and not in any acute distress. I discussed his urologic situation and recommended placing a left ureteral stent. The patient informed me that he had a stent in the past which she did not tolerate well and will not agree to having a stent placed under any circumstance. I discussed that he likely has a urinary tract infection and without proper drainage could create problems. The patient stated he would like to hold off on any urologic procedures and follow-up with his established urologist Dr. Robert Gonzalez after hospital discharge. Review of Systems Constitutional: Denies chills, Denies fever(s) Cardiovascular: Denies chest pain Respiratory: Denies shortness of breath Gastrointestinal: Reports abdominal pain (Lower abdomen) Genitourinary: Denies blood in urine, Denies testicle pain Musculoskeletal: Reports back pain (Left flank) As per HPI [facility] - History History Provided By: Patient - Medical History Medical History: Medical History (Last Reviewed 10/23/17 @ 07:19 by Kiersten Barber MD) Kidney stones - Surgical History Surgical History: Surgical History (Last Reviewed 10/23/17 @ 07:19 by Kiersten Barber MD) History of lithotripsy History of renal stent Hx of tonsillectomy - Tobacco History Second Hand Smoke Exposure: Yes Tobacco Use In Past 30 Days: Yes Smoking Status: Current every day smoker Tobacco Type: Cigarettes - Alcohol History How Often Do You Have a Drink Containing Alcohol: 2 to 3 times a week - Substance Use History Substance History: No History of Abuse - Travel History Recent Travel in the [place] Within the Last 8 Weeks: No Recent Travel Out of the Country Within the Last 8 Weeks: No - Immunization History Tetanus Immunization: <5 Years Hx Influenza Vaccine This Season: No Medications and Allergies Active Medications: Active Medications Hydrocodone Bitart/Acetaminophen (Van 5/325) 2 tab PO Q4H PRN PRN Reason: PAIN SCALE 6 TO 10 Last Admin: 10/23/17 01:22 Dose: 2 tab Chlorhexidine Gluconate (Chlorhexidine 2% Cloth) 3 pack TOPICAL INS[facility]ANCE [facility] Stop: 10/25/17 17:01 Chlorhexidine Gluconate (Chlorhexidine 2% Cloth) 3 pack TOPICAL DAILY@0400 [facility] Stop: 10/29/17 03:59 Chlorhexidine Gluconate (Chlorhexidine 2% Cloth) 3 pack TOPICAL DAILY@0400 PRN PRN Reason: Extra cloth needed Stop: 10/29/17 03:59 Hydromorphone HCl (Dilaudid Pf Inj) 1 mg IV.PUSH Q4H PRN PRN Reason: PAIN 6-10;IF UNABLE TO TAKE PO Last Admin: 10/23/17 08:00 Dose: 1 mg Sodium Chloride (Ns Inj) 500 mls @ 30 mls/hr IV.SIG .Q10H [facility] Stop: 10/25/17 17:01 Lactated Ringer's (Lr 1000 Ml Inj) 1,000 mls @ 125 mls/hr IV.CONT .Q8H [facility] Last Admin: 10/23/17 02:47 Dose: 125 mls/hr Meropenem 1,000 mg/ Sodium (Chloride) 100 mls @ 200 mls/hr IV.SIG Q8HR [facility] Last Infusion: 10/23/17 07:40 Dose: Infused Sodium Chloride (Ns Inj) 250 mls @ 15 mls/hr IV.SIG ONCE [facility] Stop: 10/23/17 22:39 Sodium Chloride (Ns Inj) 1,000 mls @ 0 mls/hr IV.SIG BOLUS [facility] Magnesium Sulfate Inj 4 gm/ (Sodium Chloride) 100 mls @ 50 mls/hr IV.SIG UNSCH PRN PRN Reason: For Magnesium 0.9 - 1.1 mg/dL Magnesium Sulfate Inj 2 gm/ (Sodium Chloride) 100 mls @ 50 mls/hr IV.SIG UNSCH PRN PRN Reason: For Magnesium 1.2 - 1.6 mg/dL Potassium Chloride (Kcl 40 Meq Premix Inj) 40 meq in 100 mls @ 25 mls/hr IV.SIG Q2H PRN PRN Reason: For Potassium 2.8 - 3.2 mEq/L Potassium Chloride (Kcl 40 Meq Premix Inj) 40 meq in 100 mls @ 25 mls/hr IV.SIG UNSCH PRN PRN Reason: For Potassium 3.3 - 3.5 mEq/L Potassium Chloride (Kcl 20 Meq Premix Inj) 20 meq in 100 mls @ 50 mls/hr IV.SIG Q2H PRN PRN Reason: For Potassium 2.8 - 3.2 mEq/L Potassium Phosphate 30 mmol/ (Sodium Chloride) 260 mls @ 42 mls/hr IV.SIG UNSCH PRN PRN Reason: SEE LABEL COMMENTS Sodium Phosphate 30 mmol/ (Sodium Chloride) 260 mls @ 42 mls/hr IV.SIG UNSCH PRN PRN Reason: For Phosphorus < 2.5 mg/dL Potassium Chloride (Kcl 20 Meq Premix Inj) 20 meq in 100 mls @ 50 mls/hr IV.SIG Q2H PRN PRN Reason: For Potassium 3.3 - 3.5 mEq/L Vancomycin HCl 1,800 mg/ (Sodium Chloride) 518 mls @ 250 mls/hr IV.SIG Q12H [facility] Magnesium Oxide (Mag-Ox) 800 mg PO UNSCH PRN PRN Reason: For Magnesium 1.2 - 1.6 mg/dL Miscellaneous Information ([facility] Ordered Lab Info) 0 each OTHER ONCE ONE Stop: 10/24/17 16:46 Ondansetron HCl (Zofran Odt) 4 mg PO Q6H PRN PRN Reason: NAUSEA OR VOMITING Ondansetron HCl (Zofran Inj) 4 mg IV.PUSH Q6H PRN PRN Reason: NAUSEA OR VOMITING Last Admin: 10/23/17 07:47 Dose: 4 mg Pantoprazole Sodium (Protonix Inj) 40 mg IV.PUSH Q12H [facility] Pharmacy Profile Note (Vancomycin Consult Pharmacy) 1 each OTHER UNSCH PRN PRN Reason: Pharmacy to dose Potassium Bicarb/Potassium Chloride (K-Lyte Cl Eff) 50 meq PO UNSCH PRN PRN Reason: For Potassium 3.3 - 3.5 mEq/L Potassium Phosphate (K-Phos Original) 2,000 mg PO Q4H PRN PRN Reason: Phosphorus Less Than 2.5 mg/dL Potassium Phosphate (K-Phos Original) 2,000 mg PO UNSCH PRN PRN Reason: SEE LABEL COMMENTS Povidone Iodine (Betadine 5% Antisepsis Kit) 1 applicatio EACH N[facility] [employer]ANCE [facility] Stop: 10/25/17 17:01 Promethazine HCl (Phenergan) 25 mg PO Q6H PRN PRN Reason: NAUSEA OR VOMITING Promethazine HCl (Phenergan Supp) 25 mg RECTAL Q6H PRN PRN Reason: NAUSEA OR VOMITING Sodium Chloride (Ns Flush) 2 ml IV.FLUSH PRN PRN PRN Reason: FLUSH AFTER USING IV ACCESS Last Admin: 10/22/17 15:13 Dose: 2 ml Allergies Allergy/AdvReac Type Severity Reaction Status Date / Time No Known Allergies Allergy Unverified 10/22/17 13:01 Home Medications Medication Instructions Recorded Confirmed Type tamsulosin [Flomax] 0.4 mg PO DAILY 10/15/17 10/22/17 History magnesium citrate 1 bottle PO ONCE 10/22/17 10/22/17 History Physical Exam Vital Signs - 24 hr 10/22/17 12:58 10/22/17 13:34 10/22/17 15:16 Temperature 97.6 F Pulse Rate 88 84 76 Respiratory Rate 18 18 18 Blood Pressure 133/69 133/70 138/72 Pulse Oximetry 97 98 99 10/22/17 18:00 10/22/17 18:20 10/22/17 18:21 Temperature 99.2 F Pulse Rate 90 Respiratory Rate 18 18 16 Blood Pressure 176/89 H Pulse Oximetry 10/22/17 18:29 10/22/17 18:35 10/22/17 18:54 Temperature Pulse Rate 82 91 H 80 Respiratory Rate 18 18 Blood Pressure 159/91 H 163/84 H Pulse Oximetry 96 10/22/17 19:45 10/22/17 22:00 10/23/17 00:00 Temperature 97.6 F 97.7 F Pulse Rate 80 87 65 Respiratory Rate 18 20 Blood Pressure 184/74 H 90/50 L Pulse Oximetry 97 93 L 10/23/17 01:25 10/23/17 02:26 10/23/17 03:00 Temperature 98 F Pulse Rate 88 78 Respiratory Rate 18 14 Blood Pressure 104/64 132/66 117/69 Pulse Oximetry 93 L 93 L 10/23/17 03:39 10/23/17 04:44 10/23/17 05:08 Temperature 97.9 F Pulse Rate 78 80 82 Respiratory Rate 17 13 19 Blood Pressure 127/80 131/73 140/76 Pulse Oximetry 10/23/17 05:50 10/23/17 05:56 10/23/17 06:05 Temperature Pulse Rate 114 H 92 H 92 H Respiratory Rate 37 H 23 19 Blood Pressure 158/88 H 158/80 H 144/87 H Pulse Oximetry 10/23/17 06:09 10/23/17 06:27 10/23/17 06:38 Temperature Pulse Rate 102 H 104 H 96 H Respiratory Rate 26 H 30 H 20 Blood Pressure 144/87 H 173/78 H 134/80 Pulse Oximetry 10/23/17 07:00 10/23/17 08:00 Temperature 98.5 F Pulse Rate 92 H Respiratory Rate 22 Blood Pressure Pulse Oximetry Physical Exam: GENERAL: This is a well-nourished, well-developed patient, in no apparent distress. SKIN: No rashes, ecchymoses or lesions. Cool and dry. HEAD: Atraumatic. Normocephalic. No temporal or scalp tenderness. EYES: Pupils equal round and reactive. Extraocular motions intact. No scleral icterus. No injection or drainage. ENT: Nose without bleeding, purulent drainage or septal hematoma. Throat without erythema, tonsillar hypertrophy or exudate. Uvula midline. Airway patent. NECK: Trachea midline. No JVD or lymphadenopathy. Supple, nontender, no meningeal signs. GASTROINTESTINAL: Abdomen distended and tender to palpation GENITOURINARY: No CVA tenderness MUSCULOSKELETAL: Extremities without clubbing, cyanosis, or edema. No joint tenderness, effusion, or edema noted. No calf tenderness. Negative Homans sign bilaterally. NEUROLOGICAL: Awake and alert. Cranial nerves II through XII intact. Motor and sensory grossly within normal limits. Five out of 5 muscle strength in all muscle groups. Normal speech. Laboratory Results - last 24 hr 10/22/17 10/22/17 10/22/17 13:15 13:15 13:15 CBC w Diff Slide review pending WBC 22.3 H RBC 4.30 L Hgb 14.1 Hct 40.7 MCV 94.6 MCH 32.7 MCHC 34.6 RDW 12.7 Plt Count 371 MPV 7.7 Neut % (Auto) 77.6 H Lymph % (Auto) 13.0 Caswell % (Auto) 6.8 Eos % (Auto) 0.6 Baso % (Auto) 2.0 Neut # (Auto) 17.4 H Lymph # (Auto) 2.9 Caswell # (Auto) 1.5 H Eos # (Auto) 0.1 Baso # (Auto) 0.4 H WBC Differential . Diff Scan Auto diff confirmed Differential Comment . Platelet Estimate Normal Platelet Morphology Normal RBC Morphology Normal PT 10.3 INR 1.0 APTT 28.1 Fibrinogen Sodium 141 Potassium 3.9 Chloride 107 Carbon Dioxide 25.9 Anion Gap 8 BUN 13 Creatinine 1.20 Estimated GFR 66 L Random Glucose 97 Lactic Acid Calcium 8.8 Total Bilirubin 0.8 AST 10 L ALT 18 Alkaline Phosphatase 59 Total Protein 7.4 Albumin 3.3 L Lipase 55 L Ur Collection Type Urine Color Urine Clarity Urine pH Ur Specific Rosalia Urine Protein Urine Glucose (UA) Urine Ketones Urine Occult Blood Urine Nitrate Urine Bilirubin Urine Urobilinogen Ur Leukocyte Esterase Urine RBC Urine WBC Urine WBC Clumps Ur Squamous Epith Cells Amorphous Sediment Urine Mucus Micro UA Comment Ur Microscopic Review Urine Culture Comments Urine Collection Time Blood Type Antibody Screen MTS Gel Crossmatch 10/22/17 10/23/17 10/23/17 15:00 02:38 02:38 CBC w Diff WBC 23.1 H RBC 2.96 L Hgb 9.6 L D Hct 28.0 L MCV 94.8 MCH 32.4 MCHC 34.2 RDW 12.4 Plt Count 317 MPV 7.7 Neut % (Auto) Lymph % (Auto) Caswell % (Auto) Eos % (Auto) Baso % (Auto) Neut # (Auto) Lymph # (Auto) Caswell # (Auto) Eos # (Auto) Baso # (Auto) WBC Differential Diff Scan Differential Comment Platelet Estimate Platelet Morphology RBC Morphology PT INR APTT Fibrinogen Sodium 139 Potassium 4.4 Chloride 108 H Carbon Dioxide 23.9 Anion Gap 7 BUN 18 Creatinine 1.20 Estimated GFR 66 L Random Glucose 157 H Lactic Acid Calcium 7.9 L D Total Bilirubin AST ALT Alkaline Phosphatase Total Protein Albumin Lipase Ur Collection Type Clean catch Urine Color Yellow Urine Clarity Cloudy H Urine pH 7.5 Ur Specific Rosalia Less/equal 1.005 Urine Protein Trace Urine Glucose (UA) Negative Urine Ketones Negative Urine Occult Blood Moderate H Urine Nitrate Positive H Urine Bilirubin Negative Urine Urobilinogen 0.2 Ur Leukocyte Esterase Large H Urine RBC 15-50 H Urine WBC 51-189 H Urine WBC Clumps Moderate H Ur Squamous Epith Cells 0-5 Amorphous Sediment Few H Urine Mucus Few H Micro UA Comment Culture indicated Ur Microscopic Review Microscopic reviewed Urine Culture Comments Culture indicated Urine Collection Time 1500 Blood Type Antibody Screen MTS Gel Crossmatch 10/23/17 10/23/17 10/23/17 02:38 04:35 04:35 CBC w Diff WBC RBC Hgb 9.1 L Hct MCV MCH MCHC RDW Plt Count MPV Neut % (Auto) Lymph % (Auto) Caswell % (Auto) Eos % (Auto) Baso % (Auto) Neut # (Auto) Lymph # (Auto) Caswell # (Auto) Eos # (Auto) Baso # (Auto) WBC Differential Diff Scan Differential Comment Platelet Estimate Platelet Morphology RBC Morphology PT INR APTT Fibrinogen Sodium Potassium Chloride Carbon Dioxide Anion Gap BUN Creatinine Estimated GFR Random Glucose Lactic Acid 2.1 H Calcium Total Bilirubin AST ALT Alkaline Phosphatase Total Protein Albumin Lipase Ur Collection Type Urine Color Urine Clarity Urine pH Ur Specific Rosalia Urine Protein Urine Glucose (UA) Urine Ketones Urine Occult Blood Urine Nitrate Urine Bilirubin Urine Urobilinogen Ur Leukocyte Esterase Urine RBC Urine WBC Urine WBC Clumps Ur Squamous Epith Cells Amorphous Sediment Urine Mucus Micro UA Comment Ur Microscopic Review Urine Culture Comments Urine Collection Time Blood Type A Positive Antibody Screen Negative MTS Gel Crossmatch 10/23/17 10/23/17 10/23/17 06:35 06:35 07:52 CBC w Diff WBC RBC Hgb Hct MCV MCH MCHC RDW Plt Count MPV Neut % (Auto) Lymph % (Auto) Caswell % (Auto) Eos % (Auto) Baso % (Auto) Neut # (Auto) Lymph # (Auto) Caswell # (Auto) Eos # (Auto) Baso # (Auto) WBC Differential Diff Scan Differential Comment Platelet Estimate Platelet Morphology RBC Morphology PT 10.8 INR 1.1 APTT 23.7 L Fibrinogen 522 H Sodium Potassium Chloride Carbon Dioxide Anion Gap BUN Creatinine Estimated GFR Random Glucose Lactic Acid 1.9 Calcium Total Bilirubin AST ALT Alkaline Phosphatase Total Protein Albumin Lipase Ur Collection Type Urine Color Urine Clarity Urine pH Ur Specific Rosalia Urine Protein Urine Glucose (UA) Urine Ketones Urine Occult Blood Urine Nitrate Urine Bilirubin Urine Urobilinogen Ur Leukocyte Esterase Urine RBC Urine WBC Urine WBC Clumps Ur Squamous Epith Cells Amorphous Sediment Urine Mucus Micro UA Comment Ur Microscopic Review Urine Culture Comments Urine Collection Time Blood Type Antibody Screen MTS Gel Crossmatch See Detail Result Diagrams: 10/23/17 04:35 10/23/17 02:38 Imaging: ITS Impressions Abdomen/Pelvis CT 10/23/17 05:28 CONCLUSION: 1. Interim laparoscopic appendectomy. Moderate amount of intraperitoneal blood. Also a hematoma in the left lower quadrant abdominal wall. No definite active bleeding seen. 2. Left hydronephrosis related to proximal ureteral stones not significantly changed. There is delayed nephrogram and excretion of contrast of the left kidney. Assessment and Plan - Assessment (1) Ureteral calculus, left Code(s): N20.1 - Calculus of ureter Status: Acute - Plan Urologic impression: 1. Obstructing left proximal ureteral calculi measuring 6 and 4 mm respectively 2. Left hydronephrosis related to obstructing calculi 3. Urinary tract infection Recommendations: 1. Discussed need to have a left ureteral stent placed to relieve obstruction and facilitate resolution of the urinary tract infection however the patient adamantly refuses this. 2. Agree with present antibiotic therapy. 3. Interventional radiology to place left nephrostomy tube if there is significant clinical deterioration 4. Patient to follow-up with his established urologist Dr. Robert Gonzalez after hospital discharge. 5. We will be available as needed during present hospitalization.
[2017-10-23] MEDS: HYDROmorphone PF Inj 2 MG/ML Vial IV.PUSH PRN (12:03)
[2017-10-23] MEDS: Pantoprazole Inj 40 MG Vial IV.PUSH SCH ×2 (12:04→20:45)
[2017-10-23] MEDS ORDERED: Bupivacaine/Epinephrine Inj 0.25% 50 ML Vial ONE (12:42)
[2017-10-23] MEDS ORDERED: Sodium Chlor 0.9% Inj 500 ML IV.SIG SCH (13:00)
[2017-10-23] MEDS ORDERED: Metoprolol Tartrate 25 MG Tablet PO SCH (13:00)
[2017-10-23] MEDS ORDERED: Chlorhexidine Gluconate 2% 1 Pack (2 Cloths) TOPICAL SCH (13:00)
[2017-10-23] MEDS ORDERED: Ketamine Inj 500 MG/10 ML Vial ONE (13:24)
[2017-10-23] MEDS ORDERED: fentaNYL Citrate Inj 100 MCG/2 ML Ampul ONE ×2 (15:19)
[2017-10-23] MEDS: Vancomycin Inj 1,800 MG in Sodium Chlor 0.9% Inj 500 ML IV.SIG SCH (18:41)
--- NOTE | 2017-10-23 20:58 | MP ---
cc: Gomez Morse MD DATE OF OPERATION: 10/23/2017 PREOPERATIVE DIAGNOSES: 1. Acute blood loss anemia. 2. Hemoperitoneum. 3. Trocar port site bleed, left lower quadrant. POSTOPERATIVE DIAGNOSES: 1. Acute blood loss anemia. 2. Hemoperitoneum. 3. Trocar port site bleed, left lower quadrant. PROCEDURES: 1. Diagnostic laparoscopy. 2. Abdominal washout. 3. Evacuation and drainage of hematoma, left abdominal wall, left lower quadrant 5 mm port site. ATTENDING SURGEON: Gomez Morse MD DISTRICT MANAGER [employer] SALES: Nessa Ashley, medical student 3. BLOOD LOSS: Minimal from surgery, approximately 1.5 liters of nonclotted blood and clotted blood removed from the abdomen as well as a left lower quadrant abdominal wall. COMPLICATIONS: None. FINDINGS: A 1.5 liters of clotted and nonclotted blood in the left lower abdominal wall port site hematoma as well as intraperitoneally. No evidence of intraperitoneal bleeding. No bleeding from the staple line. Staple line intact in the right lower quadrant. INDICATIONS FOR PROCEDURE: The patient is a 46-year-old male who is 24 hours out from a laparoscopic appendectomy for uncomplicated appendicitis. Overnight, the patient developed some hypotension. The patient was initially worked up for sepsis and as well as a CBC was performed to rule out bleeding. He was noted to have a decrease in his hemoglobin acutely, although there is no external clinical signs of bleeding. The patient underwent a CT scan to rule out bleeding, which was found to show hemoperitoneum without any active bleed. The patient remained stable throughout this course, but did receive 2 units of packed red blood cells for treatment of acute blood loss anemia. After discussion with the patient about options including continued observation versus proceeding to the operating room for exploration of the abdominal hematoma to ensure hemostasis as well as abdominal wall washout for enhanced recovery and decreased risk of infection, he agreed to undergo the procedure. PROCEDURE: The patient was taken to the operating room and placed in the supine position and placed under general endotracheal anesthesia. The patient's abdomen was prepped and draped in a sterile fashion. Timeout was performed. All of the previous port site incisions including to the Nasra port site at the periumbilical incision as well as the two 5 mm ports sites were reopened carefully with a forceps to remove the Dermabond and to cut the subcutaneous stitches. We cut the Vicryl stitch closing the fascia at the midline. We placed a 10 mm balloon trocar into the abdomen under direct visualization through the Nasra port site. We insufflated the abdomen. We surveyed the abdomen. There was no evidence of any complication from our entry. There was some clotted blood in the pelvis in the right lower quadrant and the left lower quadrant. There was some nonclotted serosanguineous fluid in the bilateral upper quadrants. There was no active bleeding noted. We then used the suction bank compliance officer device to suction out all clots in the pelvis and irrigated out the pelvis until about 95% of all the blood clots were removed and all suctionate was clear. We then placed another 5 mm port under direct visualization of the laparoscope in a subxiphoid position. We used this to access the Morison pouch and left upper quadrant area around the spleen and so we could irrigate and suctioned out all bloody fluid until clear. There was approximately a 5-6 liters of saline used for the irrigation. There was approximately 1.5 liters total of blood on gross estimation in the abdomen between all sites including the intermuscular site and the abdominal wall. We, at this point in time, felt that the staple line was intact with no leak or bleeding in the right lower quadrant and there is no evidence of bleeding. INDICATIONS: The patient had a sufficient washout. We removed all the ports and the position of the laparoscope and expressed pneumoperitoneum. We did then turn our attention to the left lower quadrant. We extended the 5 mm ports until about a 5 cm horizontal incision with a 15 blade scalpel. Bovie electrocautery was used to dissect through the subcutaneous tissue and opened the hematoma cavity. This hematoma was evacuated for the most part. I opened the external oblique fascia and this revealed some further hematoma that was evacuated. We followed this down to the peritoneum and we oversewed this with 0 Vicryl suture in a [id number] pattern to assure closure of the port site as well as to empirically ligate any vessels in this area. Again, there was no active bleeding throughout this entire process. We then closed the fascial layers individually with 0 Vicryl suture. We closed the Sherita fascia with a 3-0 Vicryl and a 4-0 Monocryl was used at the skin. We placed a sterile dressing left lower quadrant. We placed Dermabond in the other port sites. The inflow superior port site, of note, was removed prior to removing the camera and insufflation as we placed a 19-Tajik drain in the pelvis through this port site. A drain was sutured into place with nylon suture and placed to bulb suction. An abdominal binder was placed in place. The patient was discontinued from anesthesia and taken to the PACU in stable condition. The patient tolerated the procedure well. No apparent complications. All counts were correct. I was present and scrubbed for the entire procedure. MD FREDI Smith/kelin , 05:57 PM , 06:08 PM
[2017-10-23 22:04] LABS: Hematocrit 23.3 % (39.0-51.0); Hemoglobin 8.4 gm/dL (13.0-17.0); Mean Corpuscular HGB Conc 35.9 % (32.0-36.0); Mean Corpuscular Hemoglobin 32.8 pg (27.0-34.0); Mean Corpuscular Volume 91.4 fL (80.0-100.0); Mean Platelet Volume 7.9 fL (7.0-11.0); Platelet Count 252 th/mm3 (150-450); Red Blood Count 2.55 mil/mm3 (4.50-5.90); White Blood Count 16.7 th/mm3 (4.0-11.0)
[2017-10-23] MEDS: oxyCODONE/Acetaminophen 10/325 Tablet PO PRN (22:14)
[2017-10-23 23:56] LABS: Prothrombin Time 10.4 sec (9.8-11.6)
[2017-10-24] MEDS: Chlorhexidine Gluconate 2% 1 Pack (2 Cloths) TOPICAL SCH (03:19)
[2017-10-24] MEDS ORDERED: Chlorhexidine Gluconate 2% 1 Pack (2 Cloths) TOPICAL PRN (04:00)
[2017-10-24] MEDS: Vancomycin Inj 1,800 MG in Sodium Chlor 0.9% Inj 500 ML IV.SIG SCH ×2 (04:02→18:18)
[2017-10-24 04:13] VITALS: O2SAT 98
[2017-10-24 04:57] LABS: Hematocrit 23.8 % (39.0-51.0); Hemoglobin 8.5 gm/dL (13.0-17.0); Mean Corpuscular HGB Conc 35.7 % (32.0-36.0); Mean Corpuscular Hemoglobin 32.2 pg (27.0-34.0); Mean Corpuscular Volume 90.2 fL (80.0-100.0); Mean Platelet Volume 8.4 fL (7.0-11.0); Platelet Count 220 th/mm3 (150-450); Red Blood Count 2.64 mil/mm3 (4.50-5.90); Red Cell Distribution Width 14.8 % (11.6-17.2); White Blood Count 13.4 th/mm3 (4.0-11.0)
--- NOTE | 2017-10-24 06:44 | P.PNCC ---
Subjective Subjective Remarks/Hospital Course: The patient is a 46-year-old male with history of renal stones who presented yesterday to [facility] with approximately 12 hour history of severe abdominal pain. He was recently diagnosed with a 6 mm kidney stone and was to see urologist Dr. Gonzalez. He described new pain is different and at a different location. CT scan showed a large dilated appendix with surrounding inflammatory changes consistent with early acute appendicitis. Patient was started on broad-spectrum antibiotics, and Dr. Morse was consulted for acute appendicitis. Patient underwent laparoscopic appendectomy and intraoperative findings were consistent with acute suppurative appendicitis. Postop initially was stable but later evening, when the patient was trying to get out of bed he felt very dizzy and passed out. He was found on the floor by the RN, his blood pressure was 90/50. He was emergently moved to the ICU and critical care medicine was consulted. Dr. Carlin gave 1L of LR bolus and stat hemoglobin was 9.6, admission Hb was 14.1, lactic acid 2.1 WBC count 23,000. Antibiotics were broadened to meropenem and vancomycin. Stat CT abdomen pelvis was ordered I evaluated the patient in the post [facility] ICU after the CT scan was done. Patient is in acute distress due to severe abdominal pain. He does not permit detailed examination due to severe tenderness diffusely. CT shows moderate hemoperitoneum, and left lower quadrant abdominal wall hematoma, and left hydronephrosis with obstructing ureteral stone. 2 units of PRBC have been ordered stat coags are pending. I have discussed with Dr. Morse who is planning for OR for washout today SUBJ 10/24: Went to the OR yesterday for diagnostic laparoscopy and abdominal washout for acute blood loss anemia and hemoperitoneum. Found to have Trocar port site bleed, left lower quadrant. Also underwent evacuation and drainage of hematoma, left abdominal wall. 1.5 liters of clotted and nonclotted blood in the left lower abdominal wall port site hematoma as well as intraperitoneally. No other evidence of intraperitoneal bleeding. No bleeding from the staple line. Received 1 unit PRBC overnight. MATI drain put out 500 mL serosanguineous output overnight, now decreasing Objective Vital Signs / I&O: Vital Signs 10/23/17 07:00 10/23/17 08:00 10/23/17 08:14 Temperature 98.5 F Pulse Rate 92 H 86 Respiratory Rate 22 19 Blood Pressure 138/71 Pulse Oximetry 10/23/17 09:00 10/23/17 10:27 10/23/17 10:30 Temperature Pulse Rate 82 86 90 Respiratory Rate 15 17 19 Blood Pressure 104/67 134/80 Pulse Oximetry 10/23/17 11:10 10/23/17 11:13 10/23/17 11:28 Temperature 98.6 F 98.4 F Pulse Rate 87 88 80 Respiratory Rate 19 16 Blood Pressure 133/73 133/73 133/67 Pulse Oximetry 10/23/17 11:45 10/23/17 12:00 10/23/17 12:15 Temperature Pulse Rate 84 84 90 Respiratory Rate 16 16 19 Blood Pressure 133/67 139/76 Pulse Oximetry 10/23/17 12:47 10/23/17 12:54 10/23/17 14:58 Temperature 98.4 F 98.4 F 98.1 F Pulse Rate 87 87 70 Respiratory Rate 20 20 16 Blood Pressure 135/83 135/83 130/50 L Pulse Oximetry 92 L 92 L 100 10/23/17 16:00 10/23/17 16:20 10/23/17 16:35 Temperature 98 F 97.5 F L 97.8 F Pulse Rate 116 H 103 H 96 H Respiratory Rate 12 20 20 Blood Pressure 189/95 H 155/94 H 139/79 Pulse Oximetry 94 L 97 96 10/23/17 16:50 10/23/17 17:52 10/23/17 17:54 Temperature Pulse Rate 84 92 H Respiratory Rate 18 15 Blood Pressure 133/77 134/78 Pulse Oximetry 100 91 L 10/23/17 18:00 10/23/17 20:00 10/23/17 20:45 Temperature 98.7 F Pulse Rate 80 76 82 Respiratory Rate 12 13 23 Blood Pressure 124/75 147/77 H Pulse Oximetry 92 L 98 10/23/17 21:00 10/23/17 21:03 10/23/17 22:00 Temperature Pulse Rate 88 88 82 Respiratory Rate 24 24 16 Blood Pressure 147/77 H 134/67 Pulse Oximetry 10/23/17 23:00 10/23/17 23:41 10/23/17 23:43 Temperature 98.7 F Pulse Rate 82 82 88 Respiratory Rate 14 24 22 Blood Pressure 133/68 124/69 124/69 Pulse Oximetry 97 10/24/17 00:00 10/24/17 01:00 10/24/17 02:00 Temperature 98.9 F 99 F Pulse Rate 80 78 78 Respiratory Rate 16 14 15 Blood Pressure 135/68 128/68 Pulse Oximetry 92 L 10/24/17 02:03 10/24/17 03:00 10/24/17 03:03 Temperature Pulse Rate 78 74 78 Respiratory Rate 15 14 14 Blood Pressure 145/71 H 149/70 H Pulse Oximetry 10/24/17 04:00 10/24/17 04:03 10/24/17 05:00 Temperature 98.9 F Pulse Rate 74 76 80 Respiratory Rate 15 15 16 Blood Pressure 149/70 H 147/78 H Pulse Oximetry 98 10/24/17 05:03 10/24/17 06:00 10/24/17 06:03 Temperature Pulse Rate 78 78 84 Respiratory Rate 15 17 19 Blood Pressure 153/84 H 156/83 H Pulse Oximetry Intake & Output 10/23/17 10/23/17 10/24/17 06:59 18:59 06:59 Intake Total 3720 / 3720 5656 / 5656 3518 / 3518 Output Total 400 / 400 1535 / 1535 2380 / 2380 Balance 3320 / 3320 4121 / 4121 1138 / 1138 Weight 97.3 kg 99.3 kg Intake: IV 2900 / 2900 1736 / 1736 1618 / 1618 LR 1000 mL Inj 1,000 ML @ 125 1000 / 1000 1000 / 1000 mls/hr IV.CONT .Q8H ZURI Rx#: [id number] Ofirmev Inj 1,000 mg In 100 ml 100 / 100 100 / 100 @ 0 mls/hr IV.SIG .STK-MED ONE Rx#:[id number] LR 1000 mL Inj 1,000 ML @ Wide 2000 / 2000 Open IV.SIG BOLUS ONE Rx#: [id number] Merrem Inj 1,000 MG In NS Inj 100 / 100 100 / 100 100 ML @ 200 mls/hr IV.SIG Q8HR ZURI Rx#:[id number] Zosyn 3.375 GM Premix 50 ML @ 100 / 100 100 mls/hr IV.SIG Q6H ZURI Rx#: [id number] NS Inj 1,000 ML @ 999 mls/hr IV 700 / 700 .SIG .Q1H1M ONE Rx#:[id number] Vancomycin Inj 1,800 MG In NS 518 / 518 Inj 500 ML @ 250 mls/hr IV.SIG Q12H ZURI Rx#:[id number] Vancomycin Inj 1,800 MG In NS 536 / 536 Inj 500 ML @ 536 mls/hr IV.SIG Q12H ZURI Rx#:[id number] Oral 120 / 120 120 / 120 200 / 200 Anesthesia Amount 700 / 700 2600 / 2600 1300 / 1300 Other 400 / 400 Intake (Blood Product) Amt 800 / 800 400 / 400 Rbc As-3 Leukoreduced Unit 400 / 400 [id number] Rbc As-3 Leukoreduced Unit 400 / 400 [id number] Rbc As-3 Leukoreduced Unit 400 / 400 [id number] Output: Urine 50 / 50 50 / 50 1950 / 1950 Estimated Blood Loss 0 / 0 0 / 0 Urine Amount (Catheter) 350 / 350 1175 / 1175 Indwelling Urethral Catheter 350 / 350 1175 / 1175 Wound Drainage 310 / 310 430 / 430 Lower Medial Abdomen 310 / 310 430 / 430 Other: # Voids 1 1 1 Weight On Admission 43.363 kg Result Diagrams: 10/24/17 04:40 10/23/17 02:38 Objective Remarks: GENERAL: Patient is lying in bed mild abdominal tenderness but symptoms much improved SKIN: warm/dry. HEAD: Atraumatic. Normocephalic. EYES: Pupils equal and round. Conjunctiva pale ENT: Oral cavity is dry airway patent NECK: Trachea midline. No JVD. CARDIOVASCULAR: S1-S2 normal. No murmur appreciated. RESPIRATORY: No accessory muscle use. Clear to auscultation. Breath sounds equal bilaterally. GASTROINTESTINAL: Abdominal exam improved, mild tenderness to palpation. Trocar sites C/D/I. Left lower quadrant MATI drain in place, with serosanguineous output MUSCULOSKELETAL: No obvious deformities. No clubbing. No cyanosis. No edema. NEUROLOGICAL: Awake and alert. Motor grossly within normal limits. Normal speech. Assessment and Plan - Assessment and Plan Plan: ASSESSMENT: Moderate hemoperitoneum, left lower quadrant abdominal wall hematoma Anemia requiring transfusion Hypotension-resolved Sepsis Acute suppurative appendicitis status post laparoscopic appendectomy UTI Left hydronephrosis from obstructing left ureteral stone Lactic acidosis PLAN: NEURO: -Pain controlled with Dilaudid 1 mg every 4 hours as needed -Use Dilaudid CRUISE COUNSELOR if needed RESP: -DuoNeb every 6 HOUR as needed -Aggressive pulmonary toilet CV: -LR at 125 mL/h -Trend lactic acid, lanced lactic acid was normal GI/HEME: -N.p.o., IV Protonix 40 mg every 12. Diet deferred to general surgery -Moderate hemoperitoneum on CT, received total 2 units of PRBC yesterday -Ex lap: 1.5 liters of clotted and nonclotted blood in the LLQ wall port site hematoma as well as intraperitoneally. No bleeding from staple line. : -Monitor renal function closely. Ac catheter. -Urology consulted for acute hydronephrosis on the left side, left ureteral obstructing stone -Patient refuses ureteral stent at this time, Dr. Palomino recommends outpatient follow-up -If clinical deterioration IR to place nephrostomy tube -Broad-spectrum antibiotics as below ID: -Antibiotics with meropenem and vancomycin. DC vancomycin the next 24 hours if cultures remain negative -F/U Blood urine cultures ENDO: -Electrolyte replacement per protocol PROPH: -Bilateral lower extremity SCDs. IV Protonix -Chemical DVT prophylaxis is contraindicated due to hemoperitoneum LINES: -Utilize peripheral IVs, central line if needed Level 3 Continue ICU care. CCM will follow as needed Code Status: Full
[2017-10-24 07:02] LABS: Magnesium 1.9 mg/dL (1.5-2.5)
[2017-10-24 07:12] LABS: Alanine Aminotransferase 12 U/L (12-78); Albumin 2.3 g/dL (3.4-5.0); Alkaline Phosphatase 37 U/L (45-117); Anion Gap 6 meq/L (5-15); Aspartate Aminotransferase 11 U/L (15-37); Blood Urea Nitrogen 12 mg/dL (7-18); Calcium 7.4 mg/dL (8.5-10.1); Carbon Dioxide 25.9 meq/L (21.0-32.0); Chloride 109 meq/L (98-107); Glomerular Filtration Rate Greater Than 89 mL/min (>89); Glucose,Random 96 mg/dL (74-106); Potassium 3.6 meq/L (3.5-5.1); Sodium 141 meq/L (136-145); Total Protein 5.3 g/dL (6.4-8.2)
[2017-10-24] MEDS: HYDROmorphone PF Inj 2 MG/ML Vial IV.PUSH PRN ×2 (08:00→16:25)
[2017-10-24] MEDS: Pantoprazole Inj 40 MG Vial IV.PUSH SCH ×2 (08:00→20:36)
--- NOTE | 2017-10-24 10:37 | P.PNGS ---
Subjective Interval history: Resting in bed; seen at 0700; Pain well controlled; hungry Physical Exam Vital signs: Vital Signs 10/23/17 11:10 10/23/17 11:13 10/23/17 11:28 Temperature 98.6 F 98.4 F Pulse Rate 87 88 80 Respiratory Rate 19 16 Blood Pressure 133/73 133/73 133/67 Pulse Oximetry 10/23/17 11:45 10/23/17 12:00 10/23/17 12:15 Temperature Pulse Rate 84 84 90 Respiratory Rate 16 16 19 Blood Pressure 133/67 139/76 Pulse Oximetry 10/23/17 12:47 10/23/17 12:54 10/23/17 14:58 Temperature 98.4 F 98.4 F 98.1 F Pulse Rate 87 87 70 Respiratory Rate 20 20 16 Blood Pressure 135/83 135/83 130/50 L Pulse Oximetry 92 L 92 L 100 10/23/17 16:00 10/23/17 16:20 10/23/17 16:35 Temperature 98 F 97.5 F L 97.8 F Pulse Rate 116 H 103 H 96 H Respiratory Rate 12 20 20 Blood Pressure 189/95 H 155/94 H 139/79 Pulse Oximetry 94 L 97 96 10/23/17 16:50 10/23/17 17:52 10/23/17 17:54 Temperature Pulse Rate 84 92 H Respiratory Rate 18 15 Blood Pressure 133/77 134/78 Pulse Oximetry 100 91 L 10/23/17 18:00 10/23/17 20:00 10/23/17 20:45 Temperature 98.7 F Pulse Rate 80 76 82 Respiratory Rate 12 13 23 Blood Pressure 124/75 147/77 H Pulse Oximetry 92 L 98 10/23/17 21:00 10/23/17 21:03 10/23/17 22:00 Temperature Pulse Rate 88 88 82 Respiratory Rate 24 24 16 Blood Pressure 147/77 H 134/67 Pulse Oximetry 10/23/17 23:00 10/23/17 23:41 10/23/17 23:43 Temperature 98.7 F Pulse Rate 82 82 88 Respiratory Rate 14 24 22 Blood Pressure 133/68 124/69 124/69 Pulse Oximetry 97 10/24/17 00:00 10/24/17 01:00 10/24/17 02:00 Temperature 98.9 F 99 F Pulse Rate 80 78 78 Respiratory Rate 16 14 15 Blood Pressure 135/68 128/68 Pulse Oximetry 92 L 10/24/17 02:03 10/24/17 03:00 10/24/17 03:03 Temperature Pulse Rate 78 74 78 Respiratory Rate 15 14 14 Blood Pressure 145/71 H 149/70 H Pulse Oximetry 10/24/17 04:00 10/24/17 04:03 10/24/17 05:00 Temperature 98.9 F Pulse Rate 74 76 80 Respiratory Rate 15 15 16 Blood Pressure 149/70 H 147/78 H Pulse Oximetry 98 10/24/17 05:03 10/24/17 06:00 10/24/17 06:03 Temperature Pulse Rate 78 78 84 Respiratory Rate 15 17 19 Blood Pressure 153/84 H 156/83 H Pulse Oximetry 10/24/17 09:21 Temperature Pulse Rate Respiratory Rate 19 Blood Pressure Pulse Oximetry Intake & Output 10/23/17 10/24/17 10/24/17 18:59 06:59 18:59 Intake Total 5656 / 5656 3548 / 3548 618 / 618 Output Total 1535 / 1535 2380 / 2380 Balance 4121 / 4121 1168 / 1168 618 / 618 Weight 99.3 kg Intake: IV 1736 / 1736 1648 / 1648 618 / 618 LR 1000 mL Inj 1,000 ML @ 125 1000 / 1000 1000 / 1000 mls/hr IV.CONT .Q8H ZURI Rx#: [id number] Ofirmev Inj 1,000 mg In 100 ml 100 / 100 @ 0 mls/hr IV.SIG .STK-MED ONE Rx#:[id number] Merrem Inj 1,000 MG In NS Inj 100 / 100 100 / 100 100 / 100 100 ML @ 200 mls/hr IV.SIG Q8HR ZURI Rx#:[id number] NS Inj 250 ML @ 15 mls/hr IV. 30 / 30 SIG ONCE ZURI Rx#:[id number] Vancomycin Inj 1,800 MG In NS 518 / 518 518 / 518 Inj 500 ML @ 250 mls/hr IV.SIG Q12H ZURI Rx#:[id number] Vancomycin Inj 1,800 MG In NS 536 / 536 Inj 500 ML @ 536 mls/hr IV.SIG Q12H ZURI Rx#:[id number] Oral 120 / 120 200 / 200 Anesthesia Amount 2600 / 2600 1300 / 1300 Other 400 / 400 Intake (Blood Product) Amt 800 / 800 400 / 400 Rbc As-3 Leukoreduced Unit 400 / 400 [id number] Rbc As-3 Leukoreduced Unit 400 / 400 [id number] Rbc As-3 Leukoreduced Unit 400 / 400 [id number] Output: Urine 50 / 50 1950 / 1950 Estimated Blood Loss 0 / 0 0 / 0 Urine Amount (Catheter) 1175 / 1175 Indwelling Urethral Catheter 1175 / 1175 Wound Drainage 310 / 310 430 / 430 Lower Medial Abdomen 310 / 310 430 / 430 Other: # Voids 1 1 Narrative: Alert and awake Abd: lap sites c/d/i; lower LLQ with dry dressing in place; MATI with thin red drainage; Abdominal binder reapplied - Urinary Catheter Management Indwelling Urethral Catheter Cath placed during this visit: yes, but has since been removed by the nurse Reason for continuing: Acute urinary retention Insertion date: 10/23/17 Insertion time: 04:40 Removal date: 10/23/17 Removal time: 08:15 Assessment and Plan - Assessment (1) Acute appendicitis Code(s): K35.80 - Unspecified acute appendicitis Status: Acute Plan: 46 year old female POD2 lap appy; taken back to OR for bleeding s/p fall POD1 dx lap; drainage of LLQ abdominal wall hematoma; MATI drain placement -Diet as tolerated -Pain control -OOB -Hmg stable today -Continue routine MATI management -Discussed with JAVIER Cazares - Plan patient s/p lap appy and washout after post site bleed stable VS stable HH abdominal incisions c/d/i patient still with pain control issues if tolerates PO and pain controlled on oral meds can DC home from surgery standpoint, likely next 24-28h - Attending Attestation The exam, history, and the medical decision-making described in the above note were completed with the assistance of the mid-level provider. I reviewed and agree with the findings presented. I attest that I had a [id number] encounter with the patient on the same day, and personally performed and documented my assessment and findings in the medical record. (1) Acute appendicitis Qualifiers: Acute appendicitis type: with localized peritonitis Qualified Code(s): K35.3 - Acute appendicitis with localized peritonitis
[2017-10-24] MEDS ORDERED: Pharmacy Ordered Lab Info OTHER ONE (16:45)
[2017-10-24] MEDS: oxyCODONE/Acetaminophen 10/325 Tablet PO PRN (20:36)
[2017-10-25] MEDS: HYDROmorphone PF Inj 2 MG/ML Vial IV.PUSH PRN ×2 (00:11→08:38)
[2017-10-25] MEDS: oxyCODONE/Acetaminophen 10/325 Tablet PO PRN ×3 (02:15→09:50)
[2017-10-25 05:13] LABS: Hematocrit 27.4 % (39.0-51.0); Hemoglobin 9.3 gm/dL (13.0-17.0); Mean Corpuscular HGB Conc 33.7 % (32.0-36.0); Mean Corpuscular Volume 91.9 fL (80.0-100.0); Mean Platelet Volume 7.9 fL (7.0-11.0); Platelet Count 323 th/mm3 (150-450); Red Blood Count 2.99 mil/mm3 (4.50-5.90); Red Cell Distribution Width 14.6 % (11.6-17.2); White Blood Count 13.1 th/mm3 (4.0-11.0)
[2017-10-25] MEDS: Chlorhexidine Gluconate 2% 1 Pack (2 Cloths) TOPICAL SCH (05:53)
[2017-10-25] MEDS ORDERED: Vancomycin Inj 1,400 MG in Sodium Chlor 0.9% Inj 500 ML IV.SIG SCH (06:00)
[2017-10-25 08:01] VITALS: RESP 18
[2017-10-25 08:09] VITALS: BP 163/92; PULSE 62; TEMP 98.2
[2017-10-25] MEDS: Pantoprazole Inj 40 MG Vial IV.PUSH SCH (08:39)
[2017-10-26] MEDS ORDERED: VANCOMYCIN TROUGH OTHER ONE (05:45)
--- NOTE | 2017-11-07 14:19 | P.DS ---
Date of admission: 10/24/17 10:18 Primary care physician: Ruben Ramsey MD Attending physician on discharge: Gomez Morse Anticipated date of discharge: 10/25/17 Brief History from admission: 46 year old male taken to the OR for laparoscopic appendectomy. Post op the patient fell and became tachycardic and hypotensive. He was transferred to the ICU and found to have a large abdominal wall hematoma. He was taken back to the OR and a drain was placed. DS: Diagnosis - Discharge Diagnosis (1) Acute appendicitis Status: Acute DS: Medications - Discharge Medications Prescriptions: levofloxacin [Levaquin] 500 mg PO DAILY #5 tab oxycodone-acetaminophen 1 tab PO Q4H PRN #15 tab PRN Reason: acute post op pain exception DS: Summary Hospital Course: This is a 46 year old male taken to the OR for laparoscopic appendectomy. Post op the patient fell and devolved an abdominal wall hematoma. He was taken back to the OR. A drain was placed. The patient also has obstructive nephrolithiasis which a Ac catheter was placed. The patient will follow up with his [employer] T[employer]. - Time Spent with Patient Total time spent providing and/or coordinating discharge services: Less than 30 minutes - Quality: VTE Deep Vein Thrombosis/Pulmonary Embolism Present on Admission: No Exam Narrative: Alert and awake Cardio: RRR Abd: soft; minimally tender; MATI with dark old bloody drainage; incisions c/d/i Results Procedures completed during hospitalization: Laparoscopic appendectomy Incision and evacuation of LEFT sided abdominal wall hematoma Completed studies during hospitalization: Pending at discharge 10/22/17 07:32 Surgical [PTH] Routine - Impressions ITS Impressions Abdomen/Pelvis CT 10/23/17 05:28 CONCLUSION: 1. Interim laparoscopic appendectomy. Moderate amount of intraperitoneal blood. Also a hematoma in the left lower quadrant abdominal wall. No definite active bleeding seen. 2. Left hydronephrosis related to proximal ureteral stones not significantly changed. There is delayed nephrogram and excretion of contrast of the left kidney. Discharge Plan - Discharge Disposition Patient Disposition: 01 Discharge Home - Discharge Condition Condition: Fair - Discharge Order Discharge Orders: Discharge Order (Routine); Ordered 10/25/17 Ordered By: Massiel Conti - Physicians Team Primary Care Provider: Ruben Ramsey V Attending Provider: Gomez Morse Other Providers: Ant Palomino MD ; Carmel Carlin MD
== END 2017-10-25 09:57 | disposition home or self-care (01) ==
LOC: PHED 12:56 → PHSDC 14:50 → PH3 14:50 → PHSDC 16:00 → PH3 16:27 → PHICU 10-23 02:17
PROVIDERS: ADMIT Surgery; ATTEND Surgery
PROC: LAPAPPY (ICD-10-PCS; 2017-10-22 16:53)